=== PATIENT | male | born 1945 | race Caucasian/White ===

== ENCOUNTER 2020-10-28 21:01 | Inpatient (IN) ==
[2020-10-28 21:50] LABS: POC Blood Urea Nitrogen 33 mg/dL (6-20); POC CO2 26 mmol/L (22-30); POC Calcium, Ionized 1.25 mmEq/L (1.16-1.32); POC Chloride 95 mEq/L (96-108); POC Creatinine 6.4 mg/dL (0.6-1.2); POC Glucose, Random 104 mg/dL (70-105); POC Hematocrit 29 % (41-55); POC Potassium 5.4 mEql/L (3.3-5.1); POC Sodium 134 mEq/L (133-145)
[2020-10-28 22:13] LABS: Basophils # (Auto) 0.08 K/mcL (0.00-0.30); Basophils % (Auto) 0.6 % (0.0-2.0); Eosinophils # (Auto) 0.28 K/mcL (0.00-0.70); Eosinophils % (Auto) 2.1 % (0.0-7.0); Hematocrit 27.6 % (40.1-51.0); Lymphocytes % (Auto) 9.7 % (15.5-49.0); Mean Cell Volume 95.2 fL (80.0-100.0); Mean Corpuscular HGB Conc 32.6 g/dL (31.0-36.0); Mean Platelet Volume 10.5 fL (7.4-10.4); Monocytes % (Auto) 8.2 % (1.0-12.0); Neutrophils % (Auto) 79.4 % (38.0-78.0); Platelet Count 194 K/mcL (140-440); Red Cell Distribution Width 14.3 % (11.5-14.5); WBC 13.3 K/mcL (4.5-11.0)
--- NOTE | 2020-10-29 00:46 | Emergency Department Note ---
HPI General Chief complaint: Shortness of Breath/Dyspnea Stated complaint: SOB d/t needing dialysis Time Seen by Provider: 10/28/20 21:09 Source: patient Mode of arrival: EMS Limitations: no limitations History of Present Illness HPI Narrative: Narrative: Patient is a 75-year-old male with history of end-stage renal disease who presents with chief complaint of shortness of breath. Patient states that he had been doing well up until earlier this evening when he started to have worsening shortness of breath. He also has noted some extra fluid on him, which he states happens from time to time with his end-stage renal disease and dialysis. Occasionally he gets to fluid overloaded too quickly and needs to be admitted for dialysis. Patient thinks that is happening again, denies any other significant symptoms such as fever, headache, cough, chest pain, nausea, vomiting, diaphoresis, abdominal pain, changes in bowel movements or urinary symptoms. Patient states he does occasionally still make urine but not very much. He typically gets dialysis on Wednesday. He has not missed any recent appointments. Related Data Home Medications Medication Instructions Recorded Confirmed aspirin 81 mg tablet,delayed 81 mg PO QDAY 03/06/19 10/28/20 release nitroglycerin 1 tab SUBLINGUAL PRN 03/06/19 09/11/20 albuterol sulfate 90 mcg/actuation 2 puff INHALATION .Q4-6H PRN g 06/26/20 10/28/20 aerosol inhaler clopidogrel 75 mg tablet 75 mg PO QHS 06/26/20 10/28/20 ondansetron 4 mg disintegrating 4 mg PO ONCE PRN tab 06/26/20 10/28/20 tablet sennosides 8.6 mg-docusate sodium 2 tab-cap PO QDAY tab 06/26/20 10/28/20 50 mg tablet atorvastatin 40 mg tablet 40 mg PO QDAY 09/11/20 10/28/20 hydrocodone 5 mg-acetaminophen 325 1 tab PO BID PRN 09/11/20 10/28/20 mg tablet Previous Rx's Medication Instructions Recorded omeprazole 20 mg capsule,delayed 20 mg PO QDAY #90 cap 03/09/19 release calcium acetate(phosphat bind) 667 2,001 mg PO .tid cc #300 cap 01/10/20 mg capsule external catheter, male 31 mm to #30 ea 06/04/20 35 mm diclofenac sodium 1 % topical gel 2 g TOPICAL QID PRN #100 g 06/13/20 amitriptyline 10 mg tablet 10 mg PO QHS #30 tab 07/04/20 amlodipine 10 mg tablet 10 mg PO QAM #30 tab 07/04/20 losartan 100 mg tablet 100 mg PO QHS #30 tab 07/04/20 metoprolol succinate 100 mg 100 mg PO QAM #30 tab 07/04/20 tablet,extended release 24 hr tamsulosin 0.4 mg capsule 0.8 mg PO QHS #60 cap 07/04/20 polyethylene glycol 3350 17 17 g PO .COMPLEX #510 g 07/23/20 gram/dose oral powder Allergies Allergy/AdvReac Type Severity Reaction Status Date / Time Paroxetine [From Paxil] AdvReac Mild nausea Verified 09/11/20 14:23 Review of Systems ROS ROS Narrative: Narrative: All systems ED: reviewed and negative except as stated. PFSH Narrative Patient History Narrative: Narrative: Medical/Surgical/Family History All Active Problems (Updated 10/29/20 @ 00:55 by Dominick Lozano DO) Hypoxia (Acute) Volume overload (Acute) CKD (chronic kidney disease) requiring chronic dialysis (Acute) Bilateral hydronephrosis (Acute) Acute renal failure (Chronic) Hip fracture (Chronic) CKD (chronic kidney disease) (Chronic) Dependence on renal dialysis (Chronic ~08/2017) UTI (urinary tract infection) (Chronic) SOB (shortness of breath) (Chronic) Anemia due to chronic kidney disease (Chronic) Hyperkalemia (Chronic) Secondary hyperparathyroidism of renal origin (Chronic) Fall (Chronic ~07/2017) Femoral neck fracture (Chronic) Osteopenia (Chronic) Myocardial infarction acute (Chronic) Hypertension (Chronic) CVA (cerebral vascular accident) (Chronic) Tobacco use (Chronic) CAD (coronary artery disease) (Chronic) High cholesterol (Chronic) Abscess (Acute) Myositis (Acute) Abscess of skin or subcutaneous tissue (Acute) ESRD on hemodialysis (Acute) Situational depression (Chronic) History of total hip replacement (Acute) Chronic blood loss anemia (Acute) Orthopnea (Acute) Hypotension of hemodialysis (Acute) Arthropathies (Acute) Incontinence (Acute) Nausea (Chronic) Dyspnea (Chronic) Right knee pain (Chronic) Unsteadiness on feet (Chronic) Other fdc (current) drug therapy (Chronic) Other constipation (Chronic) Mixed hyperlipidemia (Chronic) Volume overload (Acute) Acute hyperkalemia (Acute) Chronic systolic CHF (congestive heart failure), NYHA class 2 (Chronic) Urinary retention (Acute) Constipation (Acute) Medical History Acute renal failure Anemia due to chronic kidney disease As needed BERNABE with HD CAD (coronary artery disease) CKD (chronic kidney disease) CVA (cerebral vascular accident) Dependence on renal dialysis (~08/2017) Dyspnea Fall (~07/2017) Femoral neck fracture High cholesterol Hip fracture Hyperkalemia Hypertension Amlodipine 10 mg per day Metoprolol Succinate 100 mg a day Losartan 100 mg qHS Mixed hyperlipidemia Myocardial infarction acute Nausea Osteopenia Other constipation Other fdc (current) drug therapy Right knee pain Secondary hyperparathyroidism of renal origin Ca Acetate SOB (shortness of breath) Tobacco use Unsteadiness on feet UTI (urinary tract infection) Surgical History H/O heart artery stent 01/20/16 History of hip surgery due to hip fracture History of surgery Left tunneled central line Family History Mother Stroke Heart disease Hypertension Lung cancer Father Lung cancer Other Cancer Heart attack Social History Smoking Status: Current every day smoker Alcohol Intake Frequency: former alcohol drinker Substance Use: does not use Exam Narrative Narrative: Narrative: Patient is a 75-year-old male sitting up in bed, acting normally and appropriately. He does not appear to be in acute discomfort or distress. He does not have any significant conversational dyspnea. General Limitations: no limitations Head Head: Present atraumatic and normocephalic Eye Eye: Present normal appearance, PERRL and EOMI; Absent scleral icterus and conjunctival injection ENT ENT: Present normal oropharynx and mucous membranes moist Neck Neck: Present full ROM and trachea midline; Absent tenderness and lymphadenopathy Chest Chest: Present symmetric chest wall rise Respiratory Respiratory: Present normal lung sounds bilaterally, respiratory distress (Mild increased work of breathing/tachypnea.) and rales/crackles; Absent wheezes, stridor and accessory muscle use Cardiovascular Cardiovascular: Present regular rate and normal rhythm; Absent systolic murmur and diastolic murmur Adbominal Abdominal: Present soft; Absent tenderness, guarding, rebound, rigidity and mass Extremities Extremities: Present pedal edema; Absent pretibial edema and calf tenderness Back Back: Absent CVA tenderness (R), CVA tenderness (L) and spinous process tenderness Neurological Neurological: Present alert and oriented X3 Psychiatric Psychiatric: Present normal affect and normal mood Skin Skin: Present warm (WNL) and dry Course Vital Signs Vital signs: Vital Signs Temperature 98.2 F 10/28/20 21:02 Pulse Rate 96 H 10/28/20 21:02 Respiratory Rate 28 H 10/28/20 21:02 Blood Pressure 165/80 10/28/20 21:02 Pulse Oximetry (%) 87 L 10/28/20 21:02 Temperature 98.2 F 10/28/20 21: Pulse Rate 90 10/29/20 00:31 Respiratory Rate 28 H 10/28/20 21:02 Blood Pressure 144/86 10/29/20 00:31 Pulse Oximetry (%) 89 L 10/29/20 00:31 [facility] MDM Narrative Medical decision making narrative: Narrative: Patient is a 75-year-old male who presented with chief complaint of shortness of breath. At this time patient does have a history and physical exam consistent with likely fluid overload secondary to his end-stage renal disease. His blood work here shows a consistent elevated leukocytosis from previous episodes, chest x-ray shows some mild pulmonary edema versus vascular congestion, and BNP is elevated as well consistent with his current fluid overload status. He has no chest pain, my suspicion for ACS is low. EKG showed no significant acute changes. Patient is requiring increased oxygen supplementation to keep his oxygenation in the low 90s as well as improve his symptoms of shortness of breath. He typically is not on oxygen at home, and we did try multiple times to wean him off the oxygen here in an effort to be able to discharge him home, however we are unable to accomplish this. He actually has had some increased oxygen requirements throughout his 4 hours here thus far, initially starting off at 2 L nasal cannula, now requiring 4 L nasal cannula. Because of this I did feel that he would benefit from a more urgent dialysis, and I discussed the case with Dr. García, who stated he would order dialysis for the patient. I discussed case the hospitalist, who agrees with the plan of admission at this time. Patient is agreeable to the plan at this time is no further concerns or questions Lab Data Result diagrams: 10/28/20 21:31 Labs: Lab Results 10/28/20 10/28/20 Range/Units 21:31 21:31 WBC 13.3 H (4.5-11.0) K/mcL RBC 2.90 L (4.63-6.08) M/mcL Hgb 9.0 L (13.7-17.5) g/dL Hct 27.6 L (40.1-51.0) % POC Hct 29 L (41-55) % MCV 95.2 (80.0-100.0) fL MCH 31.0 (26.0-34.0) pg MCHC 32.6 (31.0-36.0) g/dL RDW 14.3 (11.5-14.5) % Plt Count 194 (140-440) K/mcL MPV 10.5 H (7.4-10.4) fL Neut % (Auto) 79.4 H (38.0-78.0) % Lymph % (Auto) 9.7 L (15.5-49.0) % [place] % (Auto) 8.2 (1.0-12.0) % Eos % (Auto) 2.1 (0.0-7.0) % Baso % (Auto) 0.6 (0.0-2.0) % Lymph # (Auto) 1.30 L (1.50-4.80) K/mcL [place] # (Auto) 1.10 H (0.10-0.90) K/mcL Eos # (Auto) 0.28 (0.00-0.70) K/mcL Baso # (Auto) 0.08 (0.00-0.30) K/mcL Absolute Neutrophils 10.58 H (1.80-8.00) K/mcL POC Sodium 134 (133-145) mEq/L POC Potassium 5.4 H (3.3-5.1) mEql/L POC Chloride 95 L (96-108) mEq/L POC Total CO2 26 (22-30) mmol/L POC BUN 33 H (6-20) mg/dL POC Creatinine 6.4 H* (0.6-1.2) mg/dL POC Glucose 104 (70-105) mg/dL POC WB Ioniz Calcium 1.25 (1.16-1.32) mmEq/L NT-Pro-B Natriuret Pep 24005.0 H (<125.0) pg/mL ED POC Tests ED POC Tests: [facility] - SARS Antigen Negative Procedures Other Procedure: EKG shows normal sinus rhythm with rate of approximately 85. No ST elevation or depression concerning for ischemia. Flipped T waves in lead V5 and V6 appears to be similar to previous EKGs. No other significant arrhythmia noted. Left bundle branch block noted. CC TIME Critical Care Time Critical Care Time: Yes Total Critical Care Time: 40 Discharge Plan Patient/Caregiver Discharge Instructions Pt seen by LABORATORY MANAGER/PA only: No Clinical Impression: Hypoxia, Volume overload, CKD (chronic kidney disease) requiring chronic dialysis Patient Disposition: Xfer As Inpt ([facility]) Follow up with: Obdulia Rees ARNP [Primary Care Provider] - Prescriptions: No Action omeprazole 20 mg capsule,delayed release(DR/EC) 20 mg PO QDAY Qty: 90 RF: 3 calcium acetate(phosphat bind) 667 mg capsule 2,001 mg PO .tid cc Qty: 300 RF: 11 (DME) external catheter, male 31 mm to 35 mm misc See Rx Instructions .ROUTE .MEDSUPPLY Qty: 30 RF: 11 diclofenac sodium 1 % gel 2 g topical QID PRN (Reason: Right hip OA) Qty: 100 RF: 3 amitriptyline 10 mg tablet 10 mg PO QHS Qty: 30 RF: 11 amlodipine 10 mg tablet 10 mg PO QAM Qty: 30 RF: 11 metoprolol succinate 100 mg tablet extended release 24 hr 100 mg PO QAM Qty: 30 RF: 11 tamsulosin [Flomax] 0.4 mg capsule 0.8 mg PO QHS Qty: 60 RF: 11 losartan 100 mg tablet 100 mg PO QHS Qty: 30 RF: 11 polyethylene glycol 3350 [Miralax] 17 gram/dose powder 17 g PO .COMPLEX Qty: 510 RF: 11 albuterol sulfate 90 mcg/actuation HFA aerosol inhaler 2 puff inhalation .Q4-6H PRN (Reason: Chest Pain) RF: 0 ondansetron 4 mg tablet,disintegrating 4 mg PO ONCE PRN (Reason: Nausea) RF: 0 sennosides-docusate sodium [Senna Plus] 8.6-50 mg tablet 2 tab-cap PO QDAY RF: 0 clopidogrel 75 mg tablet 75 mg PO QHS RF: 0 aspirin [Adult Low Dose Aspirin] 81 mg tablet,delayed release (DR/EC) 81 mg PO QDAY RF: 0 nitroglycerin 1 tab SUBLINGUAL PRN (Reason: Chest Pain) RF: 0 atorvastatin 40 mg tablet 40 mg PO QDAY RF: 0 hydrocodone-acetaminophen 5-325 mg tablet 1 tab PO BID PRN (Reason: Pain) RF: 0
[2020-10-29] MEDS ORDERED: ONDANSETRON 4 MG/2 ML VIAL IV PRN ×2 (00:48→08:35)
--- NOTE | 2020-10-29 01:04 | Nephrology Consult Note ---
HPI Data of Consult Patient: known to practice within the last 3 years Consult date: 10/29/20 Requesting physician: Dominick Lozano Primary Care Provider: Obdulia Rees Consult Narrative Patient Information: Note initiated : 10/29/20 at 12:58 am Patient: Antoine Haney 75 y/o M admitted on for SOB d/t needing dialysis. Antoine Haney is a 75-year-old male with end stage renal disease on hemodialysis presented to [facility] ED for shortness of breath. He is due for hemodialysis later this morning. In ED, work up was significant for pulmonary e olga. Patient is being admitted. Nephrology consultation was requested for end stage renal disease. Chief complaint: Shortness of breath Reason for consult: Pulmonary edema cc:: CC: Constitutional Constitutional: Present weakness; Absent fever(s) EENT Nose, mouth and throat: Absent nasal congestion and sore throat Cardiovascular Cardiovascular: Absent chest pain and palpatations Respiratory Respiratory: Present cough and dyspnea Gastrointestinal Gastrointestinal: Absent nausea and vomiting Integumentary Integumentary: Absent rash and wounds Neurological Neurological: Absent confusion and syncope Psychiatric Psychiatric: Absent anxiety and panic attacks Hematologic/Lymphatic Hematologic/Lymphatic: Absent easy bleeding and easy bruising Allergic/Immunologic Allergic/Immunologic: Absent tongue swelling and uticaria PFSH PFSH All Active Problems (Updated 10/29/20 @ 06:45 by Laney García MD) Acute on chronic systolic (congestive) heart failure (Acute) Pulmonary edema (Acute) Hypoxia (Acute) Volume overload (Acute) CKD (chronic kidney disease) requiring chronic dialysis (Acute) Bilateral hydronephrosis (Acute) Acute renal failure (Chronic) Hip fracture (Chronic) CKD (chronic kidney disease) (Chronic) Dependence on renal dialysis (Chronic ~08/2017) UTI (urinary tract infection) (Chronic) SOB (shortness of breath) (Chronic) Anemia due to chronic kidney disease (Chronic) Hyperkalemia (Acute) Secondary hyperparathyroidism of renal origin (Chronic) Fall (Chronic ~07/2017) Femoral neck fracture (Chronic) Osteopenia (Chronic) Myocardial infarction acute (Chronic) Hypertension (Chronic) CVA (cerebral vascular accident) (Chronic) Tobacco use (Chronic) CAD (coronary artery disease) (Chronic) High cholesterol (Chronic) Abscess (Acute) Myositis (Acute) Abscess of skin or subcutaneous tissue (Acute) 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) Situational depression (Chronic) History of total hip replacement (Acute) Chronic blood loss anemia (Acute) Orthopnea (Acute) Hypotension of hemodialysis (Acute) Arthropathies (Acute) Incontinence (Acute) Nausea (Chronic) Dyspnea (Chronic) Right knee pain (Chronic) Unsteadiness on feet (Chronic) Other sweatband shaper (current) drug therapy (Chronic) Other constipation (Chronic) Mixed hyperlipidemia (Chronic) Volume overload (Acute) Acute hyperkalemia (Acute) Chronic systolic CHF (congestive heart failure), NYHA class 2 (Chronic) Urinary retention (Acute) Constipation (Acute) Medical History Acute renal failure Anemia due to chronic kidney disease As needed BERNABE with HD CAD (coronary artery disease) CKD (chronic kidney disease) CVA (cerebral vascular accident) Dependence on renal dialysis (~08/2017) Dyspnea Fall (~07/2017) Femoral neck fracture High cholesterol Hip fracture Hyperkalemia Hypertension Amlodipine 10 mg per day Metoprolol Succinate 100 mg a day Losartan 100 mg qHS Mixed hyperlipidemia Myocardial infarction acute Nausea Osteopenia Other constipation Other chcf (current) drug therapy Right knee pain Secondary hyperparathyroidism of renal origin Ca Acetate SOB (shortness of breath) Tobacco use Unsteadiness on feet UTI (urinary tract infection) Surgical History H/O heart artery stent 01/20/16 History of hip surgery due to hip fracture History of surgery Left tunneled central line Family History Mother Stroke Heart disease Hypertension Lung cancer Father Lung cancer Other Cancer Heart attack Social History marital status: occupational status: retired smoking status: Current every day smoker tobacco type: cigarettes per day: 4 pack-years: 50 alcohol intake frequency: former alcohol drinker substance use type: does not use MEDS/ALLERGIES Home Medications and Allergies Home Medications Medication Instructions Recorded Confirmed Type aspirin 81 mg tablet,delayed 81 mg PO QDAY 03/06/19 10/29/20 History release nitroglycerin 1 tab SUBLINGUAL PRN PRN 03/06/19 10/29/20 History omeprazole 20 mg capsule,delayed 20 mg PO QDAY #90 cap 03/09/19 10/29/20 Rx release calcium acetate(phosphat bind) 667 2,001 mg PO .tid cc #300 cap 01/10/20 10/29/20 Rx mg capsule external catheter, male 31 mm to #30 ea 06/04/20 09/11/20 Rx 35 mm diclofenac sodium 1 % topical gel 2 g TOPICAL QID PRN #100 g 06/13/20 10/29/20 Rx albuterol sulfate 90 mcg/actuation 2 puff INHALATION .Q4-6H PRN g 06/26/20 10/29/20 History aerosol inhaler clopidogrel 75 mg tablet 75 mg PO QHS 06/26/20 10/29/20 History ondansetron 4 mg disintegrating 4 mg PO ONCE PRN tab 06/26/20 10/29/20 History tablet sennosides 8.6 mg-docusate sodium 2 tab-cap PO QDAY tab 06/26/20 10/28/20 History 50 mg tablet amitriptyline 10 mg tablet 10 mg PO QHS #30 tab 07/04/20 10/29/20 Rx amlodipine 10 mg tablet 10 mg PO QAM #30 tab 07/04/20 10/29/20 Rx losartan 100 mg tablet 100 mg PO QHS #30 tab 07/04/20 10/29/20 Rx metoprolol succinate 100 mg 100 mg PO QAM #30 tab 07/04/20 10/29/20 Rx tablet,extended release 24 hr tamsulosin 0.4 mg capsule 0.8 mg PO QHS #60 cap 07/04/20 10/28/20 Rx polyethylene glycol 3350 17 17 g PO .COMPLEX #510 g 07/23/20 10/28/20 Rx gram/dose oral powder atorvastatin 40 mg tablet 40 mg PO QDAY 09/11/20 10/29/20 History hydrocodone 5 mg-acetaminophen 325 1 tab PO TID PRN 09/11/20 10/29/20 History mg tablet Allergies Allergy/AdvReac Type Severity Reaction Status Date / Time No Known Allergies Allergy Verified 10/29/20 02:41 Physical Examination Vital Signs Vital signs: Temp Pulse Resp BP Pulse Ox 98.2 F 90 28 H 144/86 95 10/28/20 21:02 10/29/20 00:31 10/28/20 21:02 10/29/20 00:31 10/29/20 00:56 General Appearance General appearance: chronically ill and fatigue EENT EENT: mucous membranes moist Neck Neck: JVD Respiratory Respiratory: rales Cardiovascular Cardiology: edema Gastrointestinal Gastrointestinal: no tenderness Integumentary Integumentary: no rash and warm and dry Neurologic Neurologic: no focal deficit Psychiatric Psychiatric: mood/affect appropriate and cooperative Results Lab Results Result Diagrams: 10/28/20 21:31 A/P Assessment and plan (1) Acute on chronic systolic (congestive) heart failure: Status: Acute (2) Pulmonary edema: Status: Acute Qualifiers: Chronicity: acute Qualified Code(s): J81.0 - Acute pulmonary edema (3) ESRD on hemodialysis: Assessment and plan: Antoine Haney is a 75-year-old male with end stage renal disease on hemodialysis, chronic systolic heart failure (Echo on 07/10/20: LVEF 25-30%) presented to [facility] ED for shortness of breath. In ED, work up was significant for pulmonary edema. The patient is admitted. Nephrology consultation was requested for end stage renal disease. End stage renal disease on hemodialysis. Wednesday, and Wednesday at [facility]. Chronic anemia due to ESRD. Acute on chronic systolic heart failure (Echo on 07/10/20: LVEF 25-30%) with fluid overload and suspected pulmonary edema. He is 3 kg above EDW based on admission weight. His examination is consistent with this. He has thin body and mild lower extremity edema. Hyperkalemia, mild. Progress: The patient seen and evaluated during hemodialysis at 6:20. His BP is low limiting UF. Midodrine 10 mg PO x 1 ordered. Recommendations/Plan: Hemodialysis today for fluid overload, then evaluate daily. He may benefit from a cardiology evaluation and cardiac cath. Status: Chronic (4) Hyperkalemia: Status: Acute Time Spent With Patient Time: Total time spent is greater than 50% in coordination of care (as documented) at patient's floor/unit and/or counseling patient:
[2020-10-29] MEDS: ACETAMINOPHEN 325 MG TABLET PO PRN ×2 (03:21→17:12)
[2020-10-29] MEDS: 0.9 % SODIUM CHLORIDE 10 ML SYRINGE IV SCH ×5 (06:18→20:21)
[2020-10-29] MEDS ORDERED: MIDODRINE 5 MG TABLET PO ONE (06:25)
--- NOTE | 2020-10-29 07:39 | XRay Report ---
CLINICAL INFORMATION: dyspnea COMPARISON: 07/01/2020 FINDINGS: The heart is moderately enlarged, but unchanged. Mediastinum is normal. Pulmonary vessels are mildly distended. There is moderate residual edema predominantly within the mid and lower lungs. No effusion IMPRESSION: Moderate CHF or volume overload Interpreted and Authenticated by: Cecilio Franco 10/29/20
--- NOTE | 2020-10-29 07:59 | Internal Med History&Physical ---
HPI History of Present Illness Patient information: Note initiated : 10/29/20 at 7:52 am Service Date, if different from initiated Date: [] Patient: Antoine Haney a 75 y/o M admitted on 10/29/20 for SOB d/t needing dialysis. Chief Complaint: [] History of present illness: Mr. Haney is a 75 year old M Presented to the ED with shortness of breath stating he needed dialysis. He was 87% by EMS. Patient states he started to get short of breath on Wednesday. He says this happens occasionally and then he will come in for dialysis. In the ED he had a chest x-ray which showed pulmonary edema. His sats were in the mid 80s. Laboratory is baseline for him. Dr. rincon contacted for dialysis. Patient just finished dialysis states he does feel a lot better. Review of Systems: Pertinent positives as above. Denies headache/fever/chills/nausea/vomiti ng/chest or abdominal pain/cough/diarrhea. Remaining 10 point review of system reviewed negative PFSH PFSH All Active Problems (Updated 10/29/20 @ 06:45 by Laney Rincon MD) Acute on chronic systolic (congestive) heart failure (Acute) Pulmonary edema (Acute) Hypoxia (Acute) Volume overload (Acute) CKD (chronic kidney disease) requiring chronic dialysis (Acute) Bilateral hydronephrosis (Acute) Acute renal failure (Chronic) Hip fracture (Chronic) CKD (chronic kidney disease) (Chronic) Dependence on renal dialysis (Chronic ~08/2017) UTI (urinary tract infection) (Chronic) SOB (shortness of breath) (Chronic) Anemia due to chronic kidney disease (Chronic) Hyperkalemia (Acute) Secondary hyperparathyroidism of renal origin (Chronic) Fall (Chronic ~07/2017) Femoral neck fracture (Chronic) Osteopenia (Chronic) Myocardial infarction acute (Chronic) Hypertension (Chronic) CVA (cerebral vascular accident) (Chronic) Tobacco use (Chronic) CAD (coronary artery disease) (Chronic) High cholesterol (Chronic) Abscess (Acute) Myositis (Acute) Abscess of skin or subcutaneous tissue (Acute) 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) Situational depression (Chronic) History of total hip replacement (Acute) Chronic blood loss anemia (Acute) Orthopnea (Acute) Hypotension of hemodialysis (Acute) Arthropathies (Acute) Incontinence (Acute) Nausea (Chronic) Dyspnea (Chronic) Right knee pain (Chronic) Unsteadiness on feet (Chronic) Other correction (current) drug therapy (Chronic) Other constipation (Chronic) Mixed hyperlipidemia (Chronic) Volume overload (Acute) Acute hyperkalemia (Acute) Chronic systolic CHF (congestive heart failure), NYHA class 2 (Chronic) Urinary retention (Acute) Constipation (Acute) Medical History Acute renal failure Anemia due to chronic kidney disease As needed 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 with HD CAD (coronary artery disease) CKD (chronic kidney disease) CVA (cerebral vascular accident) Dependence on renal dialysis (~08/2017) Dyspnea Fall (~07/2017) Femoral neck fracture High cholesterol Hip fracture Hyperkalemia Hypertension Amlodipine 10 mg per day Metoprolol Succinate 100 mg a day Losartan 100 mg qHS Mixed hyperlipidemia Myocardial infarction acute Nausea Osteopenia Other constipation 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 Right knee pain Secondary hyperparathyroidism of renal origin Ca Acetate SOB (shortness of breath) Tobacco use Unsteadiness on feet UTI (urinary tract infection) Surgical History H/O heart artery stent 01/20/16 History of hip surgery due to hip fracture History of surgery Left tunneled central line Family History Mother Stroke Heart disease Hypertension Lung cancer Father Lung cancer Other Cancer Heart attack Social History marital status: occupational status: retired smoking status: Current every day smoker tobacco type: cigarettes per day: 4 pack-years: 50 alcohol intake frequency: former alcohol drinker substance use type: does not use MEDS/ALLERGIES Home Medications and Allergies Home Medications Medication Instructions Recorded Confirmed Type aspirin 81 mg tablet,delayed 81 mg PO QDAY 03/06/19 10/29/20 History release nitroglycerin 1 tab SUBLINGUAL PRN PRN 03/06/19 10/29/20 History omeprazole 20 mg capsule,delayed 20 mg PO QDAY #90 cap 03/09/19 10/29/20 Rx release calcium acetate(phosphat bind) 667 2,001 mg PO .tid cc #300 cap 01/10/20 10/29/20 Rx mg capsule external catheter, male 31 mm to #30 ea 06/04/20 09/11/20 Rx 35 mm diclofenac sodium 1 % topical gel 2 g TOPICAL QID PRN #100 g 06/13/20 10/29/20 Rx albuterol sulfate 90 mcg/actuation 2 puff INHALATION .Q4-6H PRN g 06/26/20 10/29/20 History aerosol inhaler clopidogrel 75 mg tablet 75 mg PO QHS 06/26/20 10/29/20 History ondansetron 4 mg disintegrating 4 mg PO ONCE PRN tab 06/26/20 10/29/20 History tablet sennosides 8.6 mg-docusate sodium 2 tab-cap PO QDAY tab 06/26/20 10/28/20 History 50 mg tablet amitriptyline 10 mg tablet 10 mg PO QHS #30 tab 07/04/20 10/29/20 Rx amlodipine 10 mg tablet 10 mg PO QAM #30 tab 07/04/20 10/29/20 Rx losartan 100 mg tablet 100 mg PO QHS #30 tab 07/04/20 10/29/20 Rx metoprolol succinate 100 mg 100 mg PO QAM #30 tab 07/04/20 10/29/20 Rx tablet,extended release 24 hr tamsulosin 0.4 mg capsule 0.8 mg PO QHS #60 cap 07/04/20 10/28/20 Rx polyethylene glycol 3350 17 17 g PO .COMPLEX #510 g 07/23/20 10/28/20 Rx gram/dose oral powder atorvastatin 40 mg tablet 40 mg PO QDAY 09/11/20 10/29/20 History hydrocodone 5 mg-acetaminophen 325 1 tab PO TID PRN 09/11/20 10/29/20 History mg tablet Allergies Allergy/AdvReac Type Severity Reaction Status Date / Time No Known Allergies Allergy Verified 10/29/20 02:41 EXAM Constitutional Vitals: Temp Pulse Resp BP Pulse Ox 97.5 F 92 H 25 H 90/63 95 10/29/20 04:50 10/29/20 07:45 10/29/20 05:28 10/29/20 07:45 10/29/20 06:00 Exam: General: Alert, Awake, No acute Distress Eyes/N/T: EOMI, PERRL, Head/Neck: neck supple, normocephalic atraumatic CV: RRR, No murmurs, normal s1/s2 Pulm: diminished b/l, no wheezing Abd: soft, nontender, +BS x4 Ext: no clubbing/cyanosis, mild b/l LE edema Neuro: Alert, no focal deficits, moves all extremities, CN 2-12 grossly intact, symmetrical strength b/l upper/lower, sensations intact b/l upper/lower Skin: warm/dry DATA Data Completed and Pending Labs: Labs from last 24 hours 10/28/20 10/28/20 21:31 21:31 WBC 13.3 H RBC 2.90 L Hgb 9.0 L Hct 27.6 L POC Hct 29 L MCV 95.2 MCH 31.0 MCHC 32.6 RDW 14.3 Plt Count 194 MPV 10.5 H Neut % (Auto) 79.4 H Lymph % (Auto) 9.7 L [place] % (Auto) 8.2 Eos % (Auto) 2.1 Baso % (Auto) 0.6 Lymph # (Auto) 1.30 L [place] # (Auto) 1.10 H Eos # (Auto) 0.28 Baso # (Auto) 0.08 Absolute Neutrophils 10.58 H POC Sodium 134 POC Potassium 5.4 H POC Chloride 95 L POC Total CO2 26 POC BUN 33 H POC Creatinine 6.4 H* POC Glucose 104 POC WB Ioniz Calcium 1.25 NT-Pro-B Natriuret Pep 33582.0 H A/P Narrative A/P Narrative: A: *Volume overload with acute on chronic systolic (25-30%)/diastolic(II) CHF w/pulmonary edema: *ESRD: Follows with Dr. Villalpando *Acute hypoxic respiratory failure: 2/2 above *Hyperkalemia: *Hyponatremia: *Chronic jones use: follows with [place] *CAD w/stent: *h/o CVA: *HTN/HLD: *Anemia, chronic: *GERD: *Tobacco abuse: P: -Nephrology for dialysis and electrolyte abnormalities -midodrine during HD per Nephro -cont home ASA/Plavix/Statin -cont home BB, hold ARB/norvasc given low bp while HD this morning -pt/ot -Smoking cessation counseling -f/u cardiology and nephrology -ppx: heparin / home ppi full code Time Spent With Patient Time: Total time spent is greater than 50% in coordination of care (as documented) at patient's floor/unit and/or counseling patient: QUALITY VTE Deep Vein Thrombosis/Pulmonary Embolism Present on Admission: No
[2020-10-29] MEDS ORDERED: ALBUTEROL SULFATE 200 PUFF INHALER INH PRN (08:33)
[2020-10-29] MEDS ORDERED: POTASSIUM CHLORIDE 40 MEQ in DEXTROSE 5% IN WATER 500 ML IV PRN (08:35)
[2020-10-29] MEDS ORDERED: MAGNESIUM SULFATE 2 GM/50 ML BAG IV PRN (08:35)
[2020-10-29] MEDS ORDERED: IPRATROPIUM/ALBUTEROL 3 ML AMPUL.NEB NEB PRN (08:35)
[2020-10-29] MEDS ORDERED: ACETAMINOPHEN 325 MG TABLET PO PRN (08:35)
[2020-10-29] MEDS ORDERED: POTASSIUM CHLORIDE 20 MEQ TABLET PO PRN ×2 (08:35)
[2020-10-29] MEDS ORDERED: hydrALAZINE 20 MG/ML VIAL IV PRN (08:35)
[2020-10-29] MEDS ORDERED: SENNOSIDES 1 TABLET PO PRN (08:35)
[2020-10-29] MEDS ORDERED: Diclofenac Sodium 1 % gel TOPICAL PRN (08:39)
[2020-10-29] MEDS ORDERED: NITROGLYCERIN 0.4 MG TAB.SUBL SL PRN (08:40)
[2020-10-29] MEDS: HYDROcodone/APAP 5/325MG TABLET PO PRN ×3 (08:54→20:09)
[2020-10-29] MEDS: SENNOSIDES/DOCUSATE SODIUM 1 TAB TABLET PO SCH (10:56)
[2020-10-29] MEDS: ASPIRIN 81 MG TAB.CHEW PO SCH (10:56)
[2020-10-29] MEDS: ATORVASTATIN 40 MG TABLET PO SCH (10:56)
[2020-10-29] MEDS: METOPROLOL SUCCINATE 50 MG TAB.XL.24H PO SCH (10:56)
[2020-10-29] MEDS: HEPARIN 5,000 UNIT/ML VIAL SQ SCH ×2 (10:56→20:10)
[2020-10-29] MEDS: OMEPRAZOLE 20 MG CAPSULE PO SCH (10:56)
[2020-10-29] MEDS: DOCUSATE SODIUM 100 MG CAPSULE PO SCH ×2 (10:56→20:10)
[2020-10-29] MEDS: CALCIUM ACETATE 667 MG CAPSULE PO SCH ×3 (10:56→17:31)
--- NOTE | 2020-10-29 12:09 | EKG ---
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
[2020-10-29] MEDS ORDERED: AMITRIPTYLINE 10 MG TABLET PO SCH (21:00)
[2020-10-29] MEDS ORDERED: TAMSULOSIN 0.4 MG CAPSULE PO SCH (21:00)
[2020-10-29] MEDS ORDERED: CLOPIDOGREL 75 MG TABLET PO SCH (21:00)
[2020-10-29] MEDS ORDERED: POLYETHYLENE GLYCOL 3350 17 GM PACKET PO SCH (21:00)
[2020-10-29] MEDS ORDERED: LOSARTAN 50 MG TABLET PO SCH (21:00)
[2020-10-30] MEDS: HYDROcodone/APAP 5/325MG TABLET PO PRN (03:21)
[2020-10-30] MEDS: 0.9 % SODIUM CHLORIDE 10 ML SYRINGE IV SCH ×2 (05:51)
[2020-10-30 07:28] LABS: ALT/SGPT < 5 U/L (<40); AST/SGOT 11 U/L (<40); Albumin 3.7 gm/dL (3.2-5.2); Alkaline Phosphatase 61 U/L (39-117); Bilirubin,Direct < 0.2 mg/dL (0-0.3); Bilirubin,Total 0.6 mg/dL (0.1-1.0); Blood Urea Nitrogen 24 mg/dL (8-23); Calcium 9.6 mg/dL (8.6-10.4); Carbon Dioxide 24 mmol/L (22-30); Chloride 89 mmol/L (96-108); Globulin 3.7 gm/dL (2.2-3.7); Glomerular Filtration Rate 12; Glucose 61 mg/dL (70-105); Lactate Dehydrogenase 194 U/L (135-225); Phosphorous 2.2 mg/dL (2.5-4.5); Triglycerides 107 mg/dL (<150); Uric Acid 2.8 mg/dL (2.5-8.0)
--- NOTE | 2020-10-30 07:36 | Internal Med Progress Note ---
SUBJECTIVE Subjective Patient information: Note initiated : 10/30/20 at 7:33 am Service Date, if different from initiated Date: [] Patient: Antoine Haney 75 y/o M admitted on 10/29/20 for SOB d/t needing dialysis. Chief Complaint: [] Interval history: History of present illness: Mr. Haney is a 75 year old M Presented to the ED with shortness of breath stating he needed dialysis. He was 87% by EMS. Patient states he started to get short of breath on Wednesday. He says this happens occasionally and then he will come in for dialysis. In the ED he had a chest x-ray which showed pulmonary edema. His sats were in the mid 80s. Laboratory is baseline for him. Dr. rincon contacted for dialysis. Patient just finished dialysis states he does feel a lot better. 10/30 Constitutional Vitals: Vital Signs Temp Pulse Resp BP Pulse Ox 98.5 F 89 19 138/67 95 10/30/20 04:02 10/30/20 06:01 10/30/20 06:01 10/30/20 06:01 10/30/20 06:01 Period Temp Pulse Resp BP Sys/Millan Pulse Ox Last 24 Hr 98 F-99.0 F 79-96 12-27 79-158/60-111 82-100 Intake and Output 10/29/20 10/30/20 10/30/20 21:59 05:59 13:59 Intake Total 720 360 Output Total 350 Balance 370 360 Weight 78.653 kg Intake & Output: Intake & Output 10/29/20 10/30/20 10/30/20 21:59 05:59 13:59 Intake Total 720 360 Output Total 350 Balance 370 360 Weight 78.653 kg Intake: Oral 720 360 Output: Urine Catheter Amount 350 Other: Meal Dinner Percent of Meal Consumed Refused Urine Appearance Cloudy Urine Color Bright Yellow Urine Odor Foul Exam: General: Alert, Awake, No acute Distress Eyes/N/T: EOMI,, Head/Neck: neck supple, CV: RRR, No murmurs, Pulm: diminished b/l, no wheezing Abd: soft, nontender, +BS x4 Ext: no clubbing/cyanosis, mild b/l LE edema Neuro: Alert, no focal deficits, moves all extremities, Skin: warm/dry OBJ DATA Labs CBC & Chem 7: 10/28/20 21:31 10/30/20 05:37 Labs: Abnormal Lab Results 10/30/20 10/28/20 10/28/20 05:37 21:31 21:31 WBC 13.3 H RBC 2.90 L Hgb 9.0 L Hct 27.6 L POC Hct 29 L MPV 10.5 H Neut % (Auto) 79.4 H Lymph % (Auto) 9.7 L Lymph # (Auto) 1.30 L [place] # (Auto) 1.10 H Absolute Neutrophils 10.58 H Sodium 129 L POC Potassium 5.4 H POC Chloride 95 L Chloride 89 L POC BUN 33 H BUN 24 H Creatinine 4.6 H POC Creatinine 6.4 H* Glucose 61 L Phosphorus 2.2 L NT-Pro-B Natriuret Pep 60874.0 H Meds: Medications Acetaminophen (Acetaminophen 325 Mg Tablet) 650 mg PO Q6HP PRN; Protocol PRN Reason: Per Pain Protocol/Fever > 101 Last Admin: 10/29/20 17:12 Dose: 650 mg Documented by: Acetaminophen (Acetaminophen 325 Mg Tablet) 650 mg PO Q6HP PRN PRN Reason: PAIN/FEVER > 101 Hydrocodone Bitart/Acetaminophen (Hydrocodone/Apap 5/325mg Tablet) 1 tab PO TIDP PRN PRN Reason: Pain Last Admin: 10/30/20 03:21 Dose: 1 tab Documented by: Albuterol Sulfate (Albuterol Sulfate 200 Puff Inhaler) 2 puff INH Q4-6HP PRN PRN Reason: Chest Pain Albuterol/Ipratropium (Ipratropium/Albuterol 3 Ml Ampul.Neb) 3 ml NEB Q4HP PRN PRN Reason: Shortness Of Breath Amitriptyline HCl (Amitriptyline 10 Mg Tablet) 10 mg PO QHS [facility] Last Admin: 10/29/20 20:09 Dose: 10 mg Documented by: Aspirin (Aspirin 81 Mg Tab.Chew) 81 mg PO DAILY [facility] Last Admin: 10/29/20 10:56 Dose: 81 mg Documented by: Atorvastatin Calcium (Atorvastatin 40 Mg Tablet) 40 mg PO QDAY [facility] Last Admin: 10/29/20 10:56 Dose: 40 mg Documented by: Calcium Acetate (Calcium Acetate 667 Mg Capsule) 2,001 mg PO TIDCC [facility] Last Admin: 10/29/20 17:31 Dose: 2,001 mg Documented by: Clopidogrel Bisulfate (Clopidogrel 75 Mg Tablet) 75 mg PO QHS [facility] Last Admin: 10/29/20 20:09 Dose: 75 mg Documented by: Docusate Sodium (Docusate Sodium 100 Mg Capsule) 100 mg PO BID [facility] Last Admin: 10/29/20 20:10 Dose: Not Given Documented by: Heparin Sodium (Porcine) (Heparin 5,000 Unit/Ml Vial) 5,000 unit SQ Q12 [facility] Last Admin: 10/29/20 20:10 Dose: 5,000 unit Documented by: Hydralazine HCl (Hydralazine 20 Mg/Ml Vial) 0 mg IV Q2HP PRN PRN Reason: Hypertension Magnesium Sulfate (Magnesium Sulfate) 2 gm in 50 mls @ 50 mls/hr IV UD PRN PRN Reason: Magnesium </= 1.6 Potassium Chloride 40 meq/ (Dextrose) 520 mls @ 130 mls/hr IV UD PRN PRN Reason: Potassium < 3 Losartan Pot[facility] ([facility] Mg [facility]t) [facility] Last Admin: 10/29/20 20:09 Dose: 100 mg Documented by: Metoprolol Succinate (Metoprolol Succinate 50 Mg Tab.Xl.24h) 100 mg PO DAILY [facility] Last Admin: 10/29/20 10:56 Dose: 100 mg Documented by: Nitroglycerin (Nitroglycerin 0.4 Mg Tab.Subl) 0.4 mg SL Q5M PRN PRN Reason: Chest Pain Omeprazole (Omeprazole 20 Mg Capsule) [facility] Last Admin: 10/29/20 10:56 Dose: 20 mg Documented by: Ondansetron HCl (Ondansetron 4 Mg/2 Ml Vial) 4 mg IV Q4HP PRN; Protocol PRN Reason: Nausea And Vomiting Last Admin: 10/29/20 05:53 Dose: 4 mg Documented by: Ondansetron HCl (Ondansetron 4 Mg/2 Ml Vial) 4 mg IV Q4HP PRN PRN Reason: Nausea And Vomiting Diclofenac Sodium 1 (% Gel) 2 dose TOPICAL QID PRN PRN Reason: Right hip OA Polyethylene Glycol (Polyethylene Glycol 3350 17 Gm Packet) 17 gm PO [facility] Last Admin: 10/29/20 20:10 Dose: Not Given Documented by: Potassium Chloride (Potassium Chloride 20 Meq Tablet) 40 meq PO UD PRN PRN Reason: Potssium is 3-3.5 Potassium Chloride (Potassium Chloride 20 Meq Tablet) 40 meq PO UD PRN PRN Reason: Potassium < 3 Senna (Sennosides 1 Tablet) 2 tab PO DAILYP PRN PRN Reason: Constipation Senna/Docusate Sodium (Sennosides/Docusate Sodium 1 Tab Tablet) 1 tab PO QDAY [facility] Last Admin: 10/29/20 10:56 Dose: 1 tab Documented by: Sodium Chloride (0.9 % Sodium Chloride 10 Ml Syringe) 10 ml IV Q8 [facility] Last Admin: 10/30/20 05:51 Dose: 10 ml Documented by: Sodium Chloride (0.9 % Sodium Chloride 10 Ml Syringe) 10 ml IV Q8 [facility] Last Admin: 10/30/20 05:51 Dose: Not Given Documented by: Tamsulosin HCl (Tamsulosin 0.4 Mg Capsule) 0.8 mg PO QHS [facility] Last Admin: 10/29/20 20:09 Dose: 0.8 mg Documented by: A/P Narrative A/P Narrative: A: *Volume overload with acute on chronic systolic (25-30%)/diastolic(II) CHF w/pulmonary edema: *ESRD: Follows with Dr. Villalpando *Acute hypoxic respiratory failure: 2/2 above *Hyperkalemia: *Hyponatremia: *Chronic jones use: follows with [place] *CAD w/stent: *h/o CVA: *HTN/HLD: *Anemia, chronic: *GERD: *Tobacco abuse: P: -Nephrology for dialysis and electrolyte abnormalities -midodrine during HD per Nephro -cont home ASA/Plavix/Statin -cont home BB/norvasc, restart ARB -pt/ot -Smoking cessation counseling -f/u cardiology and nephrology -ppx: heparin / home ppi full code Time Spent With Patient Time: Total time spent is greater than 50% in coordination of care (as doc umented) at patient's floor/unit and/or counseling patient: QUALITY VTE Deep Vein Thrombosis/Pulmonary Embolism Present on Admission: No
--- NOTE | 2020-10-30 08:15 | Discharge Summary ---
Discharge Provider Provider Patient information: Note initiated : 10/30/20 at 8:13 am Service Date, if different from initiated Date: [] Patient: Antoine Haney 75 y/o M admitted on 10/29/20 for SOB d/t needing dialysis. Chief Complaint: [] Date of admission: 10/29/20 01:55 Discharge date: 10/30/20 Primary care physician: Obdulia Rees Consults: 10/29/20 Consult to Physician [CONS] Stat Comment: Consulting Provider: Servando Gudino Reason For Exam: Physician to Consult Consult to Physician [CONS] Stat Comment: already talked to him Consulting Provider: Laney Rincon Reason For Exam: Physician to Consult Discharge Meds Discharge Medications Home Medications aspirin 81 mg tablet,delayed release 81 mg PO QDAY 03/06/19 [History Confirmed 10/29/20 Last Taken 10/28/20 08:00] nitroglycerin 1 tab SUBLINGUAL PRN PRN 03/06/19 [History Confirmed 10/29/20 Last Taken Unknown] omeprazole 20 mg capsule,delayed release 20 mg PO QDAY #90 cap 03/09/19 [Rx Confirmed 10/29/20 Last Taken 10/28/20 08:00] calcium acetate(phosphat bind) 667 mg capsule 2,001 mg PO .tid cc #300 cap 01/10/20 [Rx Confirmed 10/29/20 Last Taken 10/28/20 08:00] external catheter, male 31 mm to 35 mm #30 ea 06/04/20 [Rx Confirmed 10/29/20 Last Taken Unknown] diclofenac sodium 1 % topical gel 2 g TOPICAL QID PRN #100 g 06/13/20 [Rx Confirmed 10/29/20 Last Taken Unknown] albuterol sulfate 90 mcg/actuation aerosol inhaler 2 puff INHALATION .Q4-6H PRN g 06/26/20 [History Confirmed 10/29/20 Last Taken Unknown] clopidogrel 75 mg tablet 75 mg PO QHS 06/26/20 [History Confirmed 10/29/20 Last Taken 10/27/20 21:00] ondansetron 4 mg disintegrating tablet 4 mg PO ONCE PRN tab 06/26/20 [History Confirmed 10/29/20 Last Taken Unknown] sennosides 8.6 mg-docusate sodium 50 mg tablet 2 tab-cap PO QDAY tab 06/26/20 [History Confirmed 10/28/20 Last Taken Unknown] amitriptyline 10 mg tablet 10 mg PO QHS #30 tab 07/04/20 [Rx Confirmed 10/29/20 Last Taken 10/27/20 21:00] amlodipine 10 mg tablet 10 mg PO QAM #30 tab 07/04/20 [Rx Confirmed 10/29/20 Last Taken 10/28/20 08:00] losartan 100 mg tablet 100 mg PO QHS #30 tab 07/04/20 [Rx Confirmed 10/29/20 Last Taken 10/27/20 21:00] metoprolol succinate 100 mg tablet,extended release 24 hr 100 mg PO QAM #30 tab 07/04/20 [Rx Confirmed 10/29/20 Last Taken 10/28/20 08:00] tamsulosin 0.4 mg capsule 0.8 mg PO QHS #60 cap 07/04/20 [Rx Confirmed 10/28/20 Last Taken Unknown] polyethylene glycol 3350 17 gram/dose oral powder 17 g PO .COMPLEX #510 g 07/23/20 [Rx Confirmed 10/28/20 Last Taken Unknown] atorvastatin 40 mg tablet 40 mg PO QDAY 09/11/20 [History Confirmed 10/29/20 Last Taken 10/28/20 08:00] hydrocodone 5 mg-acetaminophen 325 mg tablet 1 tab PO TID PRN 09/11/20 [History Confirmed 10/29/20 Last Taken 10/28/20 08:00] COURSE Hospital Course Hospital course: Interval history: History of present illness: Mr. Haney is a 75 year old M Presented to the ED with shortness of breath stating he needed dialysis. He was 87% by EMS. Patient states he started to get short of breath on Wednesday. He says this happens occasionally and then he will come in for dialysis. In the ED he had a chest x-ray which showed pulmonary edema. His sats were in the mid 80s. Laboratory is baseline for him. Dr. rincon contacted for dialysis. Patient just finished dialysis states he does feel a lot better. 10/30 Patient almost threatening to leave AMA if it does not go today. Was on oxygen last night but he is on room air and satting low 90s this morning. Per nephrology okay for dialysis outpatient day. *Given age and comorbidities patient is extremely high risk for readmission. A: *Volume overload with acute on chronic systolic (25-30%)/diastolic(II) CHF w/pulmonary edema: *ESRD: Follows with Dr. Villalpando *Acute hypoxic respiratory failure: 2/2 above *Hyperkalemia: *Hyponatremia: *Chronic jones use: follows with [place] *CAD w/stent: *h/o CVA: *HTN/HLD: *Anemia, chronic: *GERD: *Tobacco abuse: Discharge diagnosis: Volume overload and CHF and pulmonary edema and hypoxia Secondary discharge diagnosis: Electrolyte normalities chronic Jones use CAD stroke hypertension chronic anemia GERD tobacco abuse Time Spent with Patient Time attestation: Total time spent providing and/or coordinating discharge services: Time spent: Greater than 30 minutes EXAM Constitutional Vitals: Temp Pulse Resp BP Pulse Ox 98.5 F 89 19 138/67 95 10/30/20 04:02 10/30/20 06:01 10/30/20 06:01 10/30/20 06:01 10/30/20 06:01 Discharge Data Data Completed and Pending Labs on day of discharge: Labs from last 24 hours 10/30/20 05:37 Sodium 129 L Potassium 5.1 Chloride 89 L Carbon Dioxide 24 Anion Gap 16.0 BUN 24 H Creatinine 4.6 H GFR Calculation 12 Glucose 61 L Uric Acid 2.8 Calcium 9.6 Phosphorus 2.2 L Magnesium 1.6 Total Bilirubin 0.6 Direct Bilirubin < 0.2 GGT 12 AST 11 ALT < 5 Alkaline Phosphatase 61 Lactate Dehydrogenase 194 Total Protein 7.4 Albumin 3.7 Globulin 3.7 Albumin/Globulin Ratio 1.0 Triglycerides 107 Discharge Plan Patient/Caregiver Discharge Instructions Activity: increase activity as tolerated Diet: Renal Prescriptions: Continued omeprazole 20 mg capsule,delayed release(DR/EC) 20 mg PO QDAY Qty: 90 RF: 3 calcium acetate(phosphat bind) 667 mg capsule 2,001 mg PO .tid cc Qty: 300 RF: 11 (DME) external catheter, male 31 mm to 35 mm misc See Rx Instructions .ROUTE .MEDSUPPLY Qty: 30 RF: 11 diclofenac sodium 1 % gel 2 g topical QID PRN (Reason: Right hip OA) Qty: 100 RF: 3 amitriptyline 10 mg tablet 10 mg PO QHS Qty: 30 RF: 11 amlodipine 10 mg tablet 10 mg PO QAM Qty: 30 RF: 11 metoprolol succinate 100 mg tablet extended release 24 hr 100 mg PO QAM Qty: 30 RF: 11 tamsulosin [Flomax] 0.4 mg capsule 0.8 mg PO QHS Qty: 60 RF: 11 losartan 100 mg tablet 100 mg PO QHS Qty: 30 RF: 11 polyethylene glycol 3350 [Miralax] 17 gram/dose powder 17 g PO .COMPLEX Qty: 510 RF: 11 albuterol sulfate 90 mcg/actuation HFA aerosol inhaler 2 puff inhalation .Q4-6H PRN (Reason: Chest Pain) RF: 0 ondansetron 4 mg tablet,disintegrating 4 mg PO ONCE PRN (Reason: Nausea) RF: 0 sennosides-docusate sodium [Senna Plus] 8.6-50 mg tablet 2 tab-cap PO QDAY RF: 0 clopidogrel 75 mg tablet 75 mg PO QHS RF: 0 aspirin [Adult Low Dose Aspirin] 81 mg tablet,delayed release (DR/EC) 81 mg PO QDAY RF: 0 nitroglycerin 1 tab SUBLINGUAL PRN PRN (Reason: Chest Pain) RF: 0 atorvastatin 40 mg tablet 40 mg PO QDAY RF: 0 hydrocodone-acetaminophen 5-325 mg tablet 1 tab PO TID PRN (Reason: Pain) RF: 0 Follow Up Plan Follow up with: Obdulia Rees ARNP [Primary Care Provider] - Laney Rincon MD [Physician] - Patient Disposition: Home, Self-Care Prognosis: Undetermined Overall status at discharge: patient is progressing back to baseline Discharge Orders: Discharge Order (Routine); Ordered 10/30/20 Ordered By: Servando Gutierrez [facility] VTE Deep Vein Thrombosis/Pulmonary Embolism Present on Admission: No
[2020-10-30] MEDS: METOPROLOL SUCCINATE 50 MG TAB.XL.24H PO SCH (08:24)
[2020-10-30] MEDS: DOCUSATE SODIUM 100 MG CAPSULE PO SCH (08:27)
[2020-10-30] MEDS: SENNOSIDES/DOCUSATE SODIUM 1 TAB TABLET PO SCH (08:28)
[2020-10-30] MEDS: HEPARIN 5,000 UNIT/ML VIAL SQ SCH (08:36)
[2020-10-30] MEDS: OMEPRAZOLE 20 MG CAPSULE PO SCH (08:36)
[2020-10-30] MEDS: ASPIRIN 81 MG TAB.CHEW PO SCH (08:36)
[2020-10-30] MEDS: CALCIUM ACETATE 667 MG CAPSULE PO SCH (08:36)
[2020-10-30] MEDS: ATORVASTATIN 40 MG TABLET PO SCH (08:36)
--- NOTE | 2020-10-30 10:28 | XRay Report ---
CLINICAL INFORMATION: edema COMPARISON: 10/28/2020 FINDINGS: Moderate cardiomegaly show slight worsening. Mediastinum is unremarkable. Pulmonary vessels remain mildly distended and there is moderate interstitial edema throughout both lungs. Moderate airspace disease has progressed in the right mid and lower lung. This is likely atypical edema distribution. No effusion IMPRESSION: Moderate/severe CHF worsening. Moderate airspace disease right mid and lower lung is likely an atypical distribution of edema. Superimposed infiltrate is possible but less likely Interpreted and Authenticated by: Cecilio Franco 10/30/20
== END 2020-10-30 09:35 | DRG 291 ==
LOC: ED 21:01 → ICU 10-29 01:55
PROVIDERS: ADMIT Internal Medicine; ATTEND Internal Medicine

== ENCOUNTER 2021-06-02 06:47 | Inpatient (IN) ==
[2021-06-02] MEDS ORDERED: FUROSEMIDE 40 MG/4 ML VIAL IV ONE (06:57)
[2021-06-02] MEDS ORDERED: NITROGLYCERIN 0.4 MG TAB.SUBL SL ONE (07:18)
--- NOTE | 2021-06-02 07:19 | Emergency Department Note ---
HPI General Chief complaint: Shortness of Breath/Dyspnea Stated complaint: sob Time Seen by Provider: 06/02/21 06:49 Source: patient Mode of arrival: wheelchair Limitations: altered mental status History of Present Illness HPI Narrative: Narrative: 76 yo M w/ h/o ESRD on HD TThSa, CHF, COPD, CAD, p/w SOB. He reportedly had onset of Sx around 2AM and EMS was alerted but he refused transport at that time. Finally around 630 or so his SOB had worsened and he agreed to come in to the ER. He was found to be hypoxic w/ SaO2 76% on RA by EMS, and they started him on BIPAP, bringing his sats to the 90s. He is awake but somewhat drowsy and the most information I could obtain from his was a nod "yes" to feeling SOB. He also nodded "yes" when the RN asked him if he was feeling better w/ the BIPAP mask on. Per triage report he is full code. Related Data Home Medications Medication Instructions Recorded Confirmed aspirin 81 mg tablet,delayed 81 mg PO QDAY 03/06/19 10/29/20 release (Adult Low Dose Aspirin) nitroglycerin 1 tab SUBLINGUAL PRN PRN 03/06/19 10/29/20 albuterol sulfate 90 mcg/actuation 2 puff INHALATION .Q4-6H PRN g 06/26/20 10/29/20 aerosol inhaler ondansetron 4 mg disintegrating 4 mg PO ONCE PRN tab 06/26/20 10/29/20 tablet sennosides 8.6 mg-docusate sodium 2 tab-cap PO QDAY tab 06/26/20 10/28/20 50 mg tablet (Senna Plus) atorvastatin 40 mg tablet 40 mg PO QDAY 09/11/20 10/29/20 hydrocodone 5 mg-acetaminophen 325 1 tab PO TID PRN 09/11/20 10/29/20 mg tablet escitalopram oxalate 10 mg tablet 10 mg PO QDAY 03/27/21 trazodone 50 mg tablet 50 mg PO QHS PRN 03/27/21 Previous Rx's Medication Instructions Recorded omeprazole 20 mg capsule,delayed 20 mg PO QDAY #90 cap 03/09/19 release external catheter, male 31 mm to #30 ea 06/04/20 35 mm tamsulosin 0.4 mg capsule (Flomax) 0.8 mg PO QHS #60 cap 07/04/20 polyethylene glycol 3350 17 17 g PO .COMPLEX #510 g 07/23/20 gram/dose oral powder (Miralax) metoprolol succinate 25 mg 25 mg PO QDAY #30 tab 12/17/20 tablet,extended release 24 hr losartan 100 mg tablet 100 mg PO .COMPLEX #30 tab 02/04/21 calcium acetate(phosphat bind) 667 See Rx Instructions .ROUTE 02/10/21 mg capsule .COMPLEX #300 cap amitriptyline 25 mg tablet 25 mg PO QHS #30 tab 03/20/21 acetaminophen 325 mg tablet 650 mg PO Q6H PRN #100 tab 05/20/21 diclofenac sodium 3 % topical gel 1 applic TOPICAL QID #100 g 05/29/21 clonazepam 0.5 mg tablet 0.5 mg PO QDAY PRN #30 tab 06/02/21 Allergies Allergy/AdvReac Type Severity Reaction Status Date / Time No Known Allergies Allergy Verified 10/29/20 02:41 Review of Systems ROS ROS Narrative: Narrative: All systems ED: reviewed and negative except as stated. PFSH Narrative Patient History Narrative: Narrative: Medical/Surgical/Family History All Active Problems (Updated 06/02/21 @ 18:42 by Enoc Valencia MD) Acute dyspnea (Acute) Acute pulmonary edema (Acute) Influenza A (Acute) PNA (pneumonia) (Acute) Acute UTI (Acute) Sepsis (Acute) Wheelchair bound (Chronic) Painful swelling of joint (Chronic) Arthritis (Chronic) Autoimmune disorder (Chronic) Heart disease (Chronic) CKD (chronic kidney disease) stage 5, GFR less than 15 ml/min (Chronic) COPD with acute exacerbation (Chronic) Chronic systolic (congestive) heart failure (Chronic) Acute pulmonary edema (Chronic) Acute on chronic systolic heart failure (Chronic) Other insomnia (Chronic) Weakness (Chronic) Decreased mobility (Chronic) Other anxiety states (Chronic) Pain in right hip (Chronic) Acute renal failure (Chronic) Hip fracture (Chronic) CKD (chronic kidney disease) (Chronic) Dependence on renal dialysis (Chronic ~08/2017) UTI (urinary tract infection) (Chronic) SOB (shortness of breath) (Chronic) Anemia due to chronic kidney disease (Chronic) Hyperkalemia (Chronic) Secondary hyperparathyroidism of renal origin (Chronic) Fall (Chronic ~07/2017) Femoral neck fracture (Chronic) Osteopenia (Chronic) Myocardial infarction acute (Chronic) Hypertension (Chronic) CVA (cerebral vascular accident) (Chronic) Tobacco use (Chronic) CAD (coronary artery disease) (Chronic) High cholesterol (Chronic) Abscess (Chronic) Myositis (Chronic) Abscess of skin or subcutaneous tissue (Chronic) 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) Situational depression (Chronic) Chronic blood loss anemia (Chronic) Orthopnea (Chronic) Hypotension of hemodialysis (Chronic) Arthropathies (Chronic) Incontinence (Chronic) Nausea (Chronic) Dyspnea (Chronic) Right knee pain (Chronic) Unsteadiness on feet (Chronic) 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) Other constipation (Chronic) Mixed hyperlipidemia (Chronic) Volume overload (Chronic) Acute hyperkalemia (Chronic) Chronic systolic CHF (congestive heart failure), NYHA class 2 (Chronic) Urinary retention (Chronic) Constipation (Chronic) Bilateral hydronephrosis (Chronic) Hypoxia (Chronic) Volume overload (Chronic) CKD (chronic kidney disease) requiring chronic dialysis (Chronic) Pulmonary edema (Chronic) Acute on chronic systolic (congestive) heart failure (Chronic) Anxiety and depression (Chronic) Chronic hip pain (Chronic) Malunion of fracture (Chronic) Medical History Acute on chronic systolic heart failure Acute pulmonary edema Acute renal failure Anemia due to chronic kidney disease As needed BERNABE with HD Arthritis Autoimmune disorder CAD (coronary artery disease) Chronic systolic (congestive) heart failure CKD (chronic kidney disease) CKD (chronic kidney disease) stage 5, GFR less than 15 ml/min COPD with acute exacerbation CVA (cerebral vascular accident) Decreased mobility Dependence on renal dialysis (~08/2017) Dyspnea Fall (~07/2017) Femoral neck fracture Heart disease High cholesterol Hip fracture Hyperkalemia Hypertension Amlodipine 10 mg per day Metoprolol Succinate 100 mg a day Losartan 100 mg qHS Mixed hyperlipidemia Myocardial infarction acute Nausea Osteopenia Other anxiety states Other constipation Other insomnia 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 Fistual removal x2 History of total hip replacement Family History Mother Stroke Heart disease Hypertension Lung cancer Cancer Arthritis Chronic pain Father Lung cancer Hypertension Chronic pain Heart disease Diabetes Alcohol abuse Other Heart attack Social History Smoking Status: Current every day smoker Alcohol Intake Frequency: former alcohol drinker Substance Use: does not use Exam Narrative Narrative: Narrative: General Limitations: altered mental status General appearance: Present alert and other (drowsy but follows commands, will occasionally nod yes and no) Head Head: Present atraumatic and normocephalic ENT ENT: Present other (BIPAP in place) Neck Neck: Present normal inspection Chest Chest: Present normal inspection and symmetric chest wall rise Respiratory Respiratory: Present other (tachypneic, increased WOB, B/L crackles throughout the lung cutler) Cardiovascular Cardiovascular: Present normal rhythm, tachycardia, +S1, +S2 and other (2+ B/L radial pulses. LUE AVF over bicep w/ +thrill); Absent systolic murmur or diastolic murmur Adbominal Abdominal: Present soft and normal bowel sounds; Absent distention or tenderness Extremities Extremities: Absent pedal edema Neurological Neurological: Present other (drowsy but awake and responsive, moves all extremities) Psychiatric Psychiatric: Present normal affect Skin Skin: Present warm (WNL) and dry Course Vital Signs Vital signs: Vital Signs Temperature 97.4 F 06/02/21 06:48 Pulse Rate 118 H 06/02/21 06:48 Respiratory Rate 36 H 06/02/21 06:48 Blood Pressure 123/77 06/02/21 06:48 Pulse Oximetry (%) 99 06/02/21 06:48 Temperature 97.4 F 06/02/21 06:48 Pulse Rate 116 H 06/02/21 18:33 Respiratory Rate 26 H 06/02/21 18:33 Blood Pressure 124/81 06/02/21 18:31 Pulse Oximetry (%) 100 06/02/21 18:33 MDM MDM Narrative Medical decision making narrative: 76 yo M w/ h/o ESRD on HD TThSa, CHF, COPD, CAD, p/w SOB. DDx - ACS, PE, PTX, pulmonary edema, CHF Pt presented to EMS hypoxic, in respiratory distress. He was BIBEMS already on BIPAP w/ sats back up in the 90s. He was seen by the overnight physician as he came in, EKG showed no ischemia, CXR showed pulmonary edema, and he was started on lasix. I evaluated him, noting B/L pulmonary edema on bedside US, cardiomegaly w/ decreased EF on bedside echo, and no presence of pericardial effusion or tamponade. I added on SL NTG x1 w/ good effect. His COVID swab was negative but influenza was positive and I thus started him on tamiflu. His CXR showed edema but also B/L infiltrates and I therefore started empiric CA-PNA coverage. Troponin was 0.48 (istat) however I felt that this was very likely a troponin leak given the CHF. His BNP was markedly elevated c/w clinical presentation. CBC showed WBC 18 and lactate was 3.5. His BP did trend down and I gave a 500ml NS bolus w/ good effect and further fluids were not required. It seemed to be that he was in the position of pulmonary edema d/t CHF and ESRD, but was also vasodilated from sepsis. I felt a single bolus would be reasonable hoping that I could avoid pressors and this was the case. His UA resulted showing evidence of UTI, however this would be covered by randy de jesus. CMP showed elevated BUN and Cr as expected, however LFTs were significantly elevated. The etiology was unclear. I checked APAP and ETOH levels which were negative, and a RUQ US which was also negative. This revealed B/L hydro, raising concern for pyelo, which again would be covered by rocephin. Repeat troponin was stable. Pt was tolerating BIPAP well he had no decompensation and I d/w Dr Doherty for admission. He evaluated the pt in person and decided to trend formal (rather than istat) troponins in the ED before deciding to admit the pt. They were stable and he then placed admission orders. Lab Data Lab results reviewed: Yes I reviewed the patient's lab results. Result diagrams: 06/02/21 06:50 06/02/21 06:50 Labs: Lab Results 06/02/21 06/02/21 06/02/21 Range/Units 06:50 06:50 06:50 WBC 17.9 H (4.5-11.0) K/mcL RBC 3.28 L (4.63-6.08) M/mcL Hgb 10.7 L (13.7-17.5) g/dL Hct 32.3 L (40.1-51.0) % MCV 98.5 (80.0-100.0) fL MCH 32.6 (26.0-34.0) pg MCHC 33.1 (31.0-36.0) g/dL RDW 17.0 H (11.5-14.5) % Plt Count 109 L (140-440) K/mcL MPV 12.2 H (7.4-10.4) fL Neut % (Auto) 94.8 H (38.0-78.0) % Lymph % (Auto) 2.4 L (15.5-49.0) % [place] % (Auto) 2.6 (1.0-12.0) % Eos % (Auto) 0.1 (0.0-7.0) % Baso % (Auto) 0.1 (0.0-2.0) % Lymph # (Auto) 0.43 L (1.50-4.80) K/mcL [place] # (Auto) 0.46 (0.10-0.90) K/mcL Eos # (Auto) 0.01 (0.00-0.70) K/mcL Baso # (Auto) 0.01 (0.00-0.30) K/mcL Absolute Neutrophils 16.96 H (1.80-8.00) K/mcL D-Dimer 3.17 H (0.27-0.50) ug/mL POC VBG pH (7.32-7.42) POC VBG pCO2 at Temp (41-51) POC VBG pO2 (25-40) POC VBG HCO3 (24-28) POC VBG Total CO2 (25-29) POC Venous O2 Sat (40-70) POC VBG Base Excess (-2-2) VBG Lactic Acid (0.5-2.0) mmol/L Sodium 133 (133-145) mmol/L Potassium 4.4 (3.3-5.1) mmol/L Chloride 90 L (96-108) mmol/L Carbon Dioxide 19 L (22-30) mmol/L Anion Gap 24.0 H (8.0-16.0) BUN 35 H (8-23) mg/dL Creatinine 4.6 H (0.7-1.2) mg/dL GFR Calculation 12 Glucose 73 (70-105) mg/dL POC Venous Lactate (0.5-2) Calcium 9.3 (8.6-10.4) mg/dL Total Bilirubin 1.0 (0.1-1.0) mg/dL AST 1285 H (<40) U/L ALT 268 H (<40) U/L Alkaline Phosphatase 130 H (39-117) U/L Ammonia (16-60) umol/L Total Creatine Kinase (24-195) U/L Troponin T (<0.03) ng/mL C-Reactive Protein (0.03-0.80) mg/dL NT-Pro-B Natriuret Pep (<125.0) pg/mL Total Protein 7.1 (5.9-8.4) gm/dL Albumin 3.3 (3.2-5.2) gm/dL Globulin 3.8 H (2.2-3.7) gm/dL Albumin/Globulin Ratio 0.9 L (1.0-2.3) Procalcitonin (<0.10) ng/mL Urine Color Urine Appearance (Clear) Urine pH (5.0-9.0) Ur Specific [place] (1.000-1.035) Urine Protein (Negative) mg/dL Urine Glucose (UA) (Negative) mg/dL Urine Ketones (Negative) mg/dL Urine Occult Blood (Negative) mg/dL Urine Nitrate (Negative) Urine Bilirubin (Negative) mg/dL Urine Urobilinogen mg/dL Ur Leukocyte Esterase (Negative) /uL Urine RBC (0-1) /hpf Urine WBC (0-4) /hpf Ur Squamous Epith Cells (0-4) /hpf Urine Bacteria (0) /hpf Ur Culture Indicated? Acetaminophen ug/mL Ethyl Alcohol (<0.010) gm/dL POC Troponin I 06/02/21 06/02/21 06/02/21 Range/Units 06:50 06:50 07:22 WBC (4.5-11.0) K/mcL RBC (4.63-6.08) M/mcL Hgb (13.7-17.5) g/dL Hct (40.1-51.0) % MCV (80.0-100.0) fL MCH (26.0-34.0) pg MCHC (31.0-36.0) g/dL RDW (11.5-14.5) % Plt Count (140-440) K/mcL MPV (7.4-10.4) fL Neut % (Auto) (38.0-78.0) % Lymph % (Auto) (15.5-49.0) % [place] % (Auto) (1.0-12.0) % Eos % (Auto) (0.0-7.0) % Baso % (Auto) (0.0-2.0) % Lymph # (Auto) (1.50-4.80) K/mcL [place] # (Auto) (0.10-0.90) K/mcL Eos # (Auto) (0.00-0.70) K/mcL Baso # (Auto) (0.00-0.30) K/mcL Absolute Neutrophils (1.80-8.00) K/mcL D-Dimer (0.27-0.50) ug/mL POC VBG pH (7.32-7.42) POC VBG pCO2 at Temp (41-51) POC VBG pO2 (25-40) POC VBG HCO3 (24-28) POC VBG Total CO2 (25-29) POC Venous O2 Sat (40-70) POC VBG Base Excess (-2-2) VBG Lactic Acid (0.5-2.0) mmol/L Sodium (133-145) mmol/L Potassium (3.3-5.1) mmol/L Chloride (96-108) mmol/L Carbon Dioxide (22-30) mmol/L Anion Gap (8.0-16.0) BUN (8-23) mg/dL Creatinine (0.7-1.2) mg/dL GFR Calculation Glucose (70-105) mg/dL POC Venous Lactate (0.5-2) Calcium (8.6-10.4) mg/dL Total Bilirubin (0.1-1.0) mg/dL AST (<40) U/L ALT (<40) U/L Alkaline Phosphatase (39-117) U/L Ammonia (16-60) umol/L Total Creatine Kinase (24-195) U/L Troponin T (<0.03) ng/mL C-Reactive Protein (0.03-0.80) mg/dL NT-Pro-B Natriuret Pep > 89921.0 H (<125.0) pg/mL Total Protein (5.9-8.4) gm/dL Albumin (3.2-5.2) gm/dL Globulin (2.2-3.7) gm/dL Albumin/Globulin Ratio (1.0-2.3) Procalcitonin (<0.10) ng/mL Urine Color Urine Appearance (Clear) Urine pH (5.0-9.0) Ur Specific [place] (1.000-1.035) Urine Protein (Negative) mg/dL Urine Glucose (UA) (Negative) mg/dL Urine Ketones (Negative) mg/dL Urine Occult Blood (Negative) mg/dL Urine Nitrate (Negative) Urine Bilirubin (Negative) mg/dL Urine Urobilinogen mg/dL Ur Leukocyte Esterase (Negative) /uL Urine RBC (0-1) /hpf Urine WBC (0-4) /hpf Ur Squamous Epith Cells (0-4) /hpf Urine Bacteria (0) /hpf Ur Culture Indicated? Acetaminophen < 5.0 ug/mL Ethyl Alcohol (<0.010) gm/dL POC Troponin I 0.48 06/02/21 06/02/21 06/02/21 Range/Units 07:30 07:38 10:06 WBC (4.5-11.0) K/mcL RBC (4.63-6.08) M/mcL Hgb (13.7-17.5) g/dL Hct (40.1-51.0) % MCV (80.0-100.0) fL MCH (26.0-34.0) pg MCHC (31.0-36.0) g/dL RDW (11.5-14.5) % Plt Count (140-440) K/mcL MPV (7.4-10.4) fL Neut % (Auto) (38.0-78.0) % Lymph % (Auto) (15.5-49.0) % [place] % (Auto) (1.0-12.0) % Eos % (Auto) (0.0-7.0) % Baso % (Auto) (0.0-2.0) % Lymph # (Auto) (1.50-4.80) K/mcL [place] # (Auto) (0.10-0.90) K/mcL Eos # (Auto) (0.00-0.70) K/mcL Baso # (Auto) (0.00-0.30) K/mcL Absolute Neutrophils (1.80-8.00) K/mcL D-Dimer (0.27-0.50) ug/mL POC VBG pH 7.39 (7.32-7.42) POC VBG pCO2 at Temp 40.1 L (41-51) POC VBG pO2 47 H (25-40) POC VBG HCO3 24.1 (24-28) POC VBG Total CO2 25.0 (25-29) POC Venous O2 Sat 82.0 H (40-70) POC VBG Base Excess -1.0 (-2-2) VBG Lactic Acid (0.5-2.0) mmol/L Sodium (133-145) mmol/L Potassium (3.3-5.1) mmol/L Chloride (96-108) mmol/L Carbon Dioxide (22-30) mmol/L Anion Gap (8.0-16.0) BUN (8-23) mg/dL Creatinine (0.7-1.2) mg/dL GFR Calculation Glucose (70-105) mg/dL POC Venous Lactate 3.5 H (0.5-2) Calcium (8.6-10.4) mg/dL Total Bilirubin (0.1-1.0) mg/dL AST (<40) U/L ALT (<40) U/L Alkaline Phosphatase (39-117) U/L Ammonia (16-60) umol/L Total Creatine Kinase (24-195) U/L Troponin T (<0.03) ng/mL C-Reactive Protein (0.03-0.80) mg/dL NT-Pro-B Natriuret Pep (<125.0) pg/mL Total Protein (5.9-8.4) gm/dL Albumin (3.2-5.2) gm/dL Globulin (2.2-3.7) gm/dL Albumin/Globulin Ratio (1.0-2.3) Procalcitonin (<0.10) ng/mL Urine Color Mitzi Urine Appearance Cloudy A (Clear) Urine pH 9.0 (5.0-9.0) Ur Specific [place] 1.011 (1.000-1.035) Urine Protein 100 A (Negative) mg/dL Urine Glucose (UA) Negative (Negative) mg/dL Urine Ketones Negative (Negative) mg/dL Urine Occult Blood >=1.0 A (Negative) mg/dL Urine Nitrate Negative (Negative) Urine Bilirubin Negative (Negative) mg/dL Urine Urobilinogen Negative mg/dL Ur Leukocyte Esterase 250 A (Negative) /uL Urine RBC > 182 H (0-1) /hpf Urine WBC 68 H (0-4) /hpf Ur Squamous Epith Cells 0 (0-4) /hpf Urine Bacteria None (0) /hpf Ur Culture Indicated? yes Acetaminophen ug/mL Ethyl Alcohol < 0.010 (<0.010) gm/dL POC Troponin I 06/02/21 06/02/21 06/02/21 Range/Units 11:28 11:52 13:17 WBC (4.5-11.0) K/mcL RBC (4.63-6.08) M/mcL Hgb (13.7-17.5) g/dL Hct (40.1-51.0) % MCV (80.0-100.0) fL MCH (26.0-34.0) pg MCHC (31.0-36.0) g/dL RDW (11.5-14.5) % Plt Count (140-440) K/mcL MPV (7.4-10.4) fL Neut % (Auto) (38.0-78.0) % Lymph % (Auto) (15.5-49.0) % [place] % (Auto) (1.0-12.0) % Eos % (Auto) (0.0-7.0) % Baso % (Auto) (0.0-2.0) % Lymph # (Auto) (1.50-4.80) K/mcL [place] # (Auto) (0.10-0.90) K/mcL Eos # (Auto) (0.00-0.70) K/mcL Baso # (Auto) (0.00-0.30) K/mcL Absolute Neutrophils (1.80-8.00) K/mcL D-Dimer (0.27-0.50) ug/mL POC VBG pH (7.32-7.42) POC VBG pCO2 at Temp (41-51) POC VBG pO2 (25-40) POC VBG HCO3 (24-28) POC VBG Total CO2 (25-29) POC Venous O2 Sat (40-70) POC VBG Base Excess (-2-2) VBG Lactic Acid 2.0 (0.5-2.0) mmol/L Sodium (133-145) mmol/L Potassium (3.3-5.1) mmol/L Chloride (96-108) mmol/L Carbon Dioxide (22-30) mmol/L Anion Gap (8.0-16.0) BUN (8-23) mg/dL Creatinine (0.7-1.2) mg/dL GFR Calculation Glucose (70-105) mg/dL POC Venous Lactate (0.5-2) Calcium (8.6-10.4) mg/dL Total Bilirubin (0.1-1.0) mg/dL AST (<40) U/L ALT (<40) U/L Alkaline Phosphatase (39-117) U/L Ammonia (16-60) umol/L Total Creatine Kinase (24-195) U/L Troponin T (<0.03) ng/mL C-Reactive Protein (0.03-0.80) mg/dL NT-Pro-B Natriuret Pep (<125.0) pg/mL Total Protein (5.9-8.4) gm/dL Albumin (3.2-5.2) gm/dL Globulin (2.2-3.7) gm/dL Albumin/Globulin Ratio (1.0-2.3) Procalcitonin (<0.10) ng/mL Urine Color Urine Appearance (Clear) Urine pH (5.0-9.0) Ur Specific [place] (1.000-1.035) Urine Protein (Negative) mg/dL Urine Glucose (UA) (Negative) mg/dL Urine Ketones (Negative) mg/dL Urine Occult Blood (Negative) mg/dL Urine Nitrate (Negative) Urine Bilirubin (Negative) mg/dL Urine Urobilinogen mg/dL Ur Leukocyte Esterase (Negative) /uL Urine RBC (0-1) /hpf Urine WBC (0-4) /hpf Ur Squamous Epith Cells (0-4) /hpf Urine Bacteria (0) /hpf Ur Culture Indicated? Acetaminophen ug/mL Ethyl Alcohol (<0.010) gm/dL POC Troponin I 0.46 0.50 06/02/21 06/02/21 06/02/21 Range/Units 13:17 13:18 13:18 WBC (4.5-11.0) K/mcL RBC (4.63-6.08) M/mcL Hgb (13.7-17.5) g/dL Hct (40.1-51.0) % MCV (80.0-100.0) fL MCH (26.0-34.0) pg MCHC (31.0-36.0) g/dL RDW (11.5-14.5) % Plt Count (140-440) K/mcL MPV (7.4-10.4) fL Neut % (Auto) (38.0-78.0) % Lymph % (Auto) (15.5-49.0) % [place] % (Auto) (1.0-12.0) % Eos % (Auto) (0.0-7.0) % Baso % (Auto) (0.0-2.0) % Lymph # (Auto) (1.50-4.80) K/mcL [place] # (Auto) (0.10-0.90) K/mcL Eos # (Auto) (0.00-0.70) K/mcL Baso # (Auto) (0.00-0.30) K/mcL Absolute Neutrophils (1.80-8.00) K/mcL D-Dimer (0.27-0.50) ug/mL POC VBG pH (7.32-7.42) POC VBG pCO2 at Temp (41-51) POC VBG pO2 (25-40) POC VBG HCO3 (24-28) POC VBG Total CO2 (25-29) POC Venous O2 Sat (40-70) POC VBG Base Excess (-2-2) VBG Lactic Acid (0.5-2.0) mmol/L Sodium (133-145) mmol/L Potassium (3.3-5.1) mmol/L Chloride (96-108) mmol/L Carbon Dioxide (22-30) mmol/L Anion Gap (8.0-16.0) BUN (8-23) mg/dL Creatinine (0.7-1.2) mg/dL GFR Calculation Glucose (70-105) mg/dL POC Venous Lactate (0.5-2) Calcium (8.6-10.4) mg/dL Total Bilirubin (0.1-1.0) mg/dL AST (<40) U/L ALT (<40) U/L Alkaline Phosphatase (39-117) U/L Ammonia (16-60) umol/L Total Creatine Kinase 435 H (24-195) U/L Troponin T 0.10 H* (<0.03) ng/mL C-Reactive Protein (0.03-0.80) mg/dL NT-Pro-B Natriuret Pep (<125.0) pg/mL Total Protein (5.9-8.4) gm/dL Albumin (3.2-5.2) gm/dL Globulin (2.2-3.7) gm/dL Albumin/Globulin Ratio (1.0-2.3) Procalcitonin 7.91 H (<0.10) ng/mL Urine Color Urine Appearance (Clear) Urine pH (5.0-9.0) Ur Specific [place] (1.000-1.035) Urine Protein (Negative) mg/dL Urine Glucose (UA) (Negative) mg/dL Urine Ketones (Negative) mg/dL Urine Occult Blood (Negative) mg/dL Urine Nitrate (Negative) Urine Bilirubin (Negative) mg/dL Urine Urobilinogen mg/dL Ur Leukocyte Esterase (Negative) /uL Urine RBC (0-1) /hpf Urine WBC (0-4) /hpf Ur Squamous Epith Cells (0-4) /hpf Urine Bacteria (0) /hpf Ur Culture Indicated? Acetaminophen ug/mL Ethyl Alcohol (<0.010) gm/dL POC Troponin I 06/02/21 06/02/21 06/02/21 Range/Units 13:18 16:28 16:28 WBC (4.5-11.0) K/mcL RBC (4.63-6.08) M/mcL Hgb (13.7-17.5) g/dL Hct (40.1-51.0) % MCV (80.0-100.0) fL MCH (26.0-34.0) pg MCHC (31.0-36.0) g/dL RDW (11.5-14.5) % Plt Count (140-440) K/mcL MPV (7.4-10.4) fL Neut % (Auto) (38.0-78.0) % Lymph % (Auto) (15.5-49.0) % [place] % (Auto) (1.0-12.0) % Eos % (Auto) (0.0-7.0) % Baso % (Auto) (0.0-2.0) % Lymph # (Auto) (1.50-4.80) K/mcL [place] # (Auto) (0.10-0.90) K/mcL Eos # (Auto) (0.00-0.70) K/mcL Baso # (Auto) (0.00-0.30) K/mcL Absolute Neutrophils (1.80-8.00) K/mcL D-Dimer (0.27-0.50) ug/mL POC VBG pH (7.32-7.42) POC VBG pCO2 at Temp (41-51) POC VBG pO2 (25-40) POC VBG HCO3 (24-28) POC VBG Total CO2 (25-29) POC Venous O2 Sat (40-70) POC VBG Base Excess (-2-2) VBG Lactic Acid (0.5-2.0) mmol/L Sodium (133-145) mmol/L Potassium (3.3-5.1) mmol/L Chloride (96-108) mmol/L Carbon Dioxide (22-30) mmol/L Anion Gap (8.0-16.0) BUN (8-23) mg/dL Creatinine (0.7-1.2) mg/dL GFR Calculation Glucose (70-105) mg/dL POC Venous Lactate (0.5-2) Calcium (8.6-10.4) mg/dL Total Bilirubin (0.1-1.0) mg/dL AST (<40) U/L ALT (<40) U/L Alkaline Phosphatase (39-117) U/L Ammonia 17 (16-60) umol/L Total Creatine Kinase (24-195) U/L Troponin T 0.11 H* (<0.03) ng/mL C-Reactive Protein 23.40 H (0.03-0.80) mg/dL NT-Pro-B Natriuret Pep (<125.0) pg/mL Total Protein (5.9-8.4) gm/dL Albumin (3.2-5.2) gm/dL Globulin (2.2-3.7) gm/dL Albumin/Globulin Ratio (1.0-2.3) Procalcitonin (<0.10) ng/mL Urine Color Urine Appearance (Clear) Urine pH (5.0-9.0) Ur Specific [place] (1.000-1.035) Urine Protein (Negative) mg/dL Urine Glucose (UA) (Negative) mg/dL Urine Ketones (Negative) mg/dL Urine Occult Blood (Negative) mg/dL Urine Nitrate (Negative) Urine Bilirubin (Negative) mg/dL Urine Urobilinogen mg/dL Ur Leukocyte Esterase (Negative) /uL Urine RBC (0-1) /hpf Urine WBC (0-4) /hpf Ur Squamous Epith Cells (0-4) /hpf Urine Bacteria (0) /hpf Ur Culture Indicated? Acetaminophen ug/mL Ethyl Alcohol (<0.010) gm/dL POC Troponin I ED POC Tests ED POC Tests: [facility] - SARS Antigen Negative EKG Data EKG #1: EKG attestation: Yes I reviewed and interpreted this EKG. and Yes There are no EKG findings of acute coronary syndrome EKG results narrative: Sinus tachycardia rate of 116 CO 129, QRS 149, QT 356 QTc 495 LBBB, no STEMI, negative Sgar[place]ossa Similar to previous EKG CC TIME Critical Care Time Attestation: Approximately 70 minutes of critical care time was used in order to assess and manage the high probability of imminent or life threatening deterioration to the cardiovascular and pulmonary systems which required my highest level of preparedness and interventions with frequent patient assessments. This time is excluding time spent on separately billable procedures. Discharge Plan Patient/Caregiver Discharge Instructions Pt seen by [facility]/PA only: No Clinical Impression: Acute dyspnea, Hypertension, CAD (coronary artery disease), ESRD on hemodialysis, Acute on chronic systolic (congestive) heart failure, Acute pulmonary edema, Influenza A, PNA (pneumonia), Acute UTI, Sepsis Patient Disposition: Xfer As Inpt ([facility]) Follow up with: Obduila Rees ARNP [Primary Care Provider] - Prescriptions: No Action omeprazole 20 mg capsule,delayed release(DR/EC) 20 mg PO QDAY Qty: 90 3RF (DME) external catheter, male 31 mm to 35 mm misc See Rx Instructions .ROUTE .MEDSUPPLY Qty: 30 11RF Rx Instructions: As directed daily tamsulosin [Flomax] 0.4 mg capsule 0.8 mg PO QHS Qty: 60 11RF Rx Instructions: Replaces doxazosin polyethylene glycol 3350 [Miralax] 17 gram/dose powder 17 g PO .COMPLEX Qty: 510 11RF Rx Instructions: 17 grams PO Daily and 1 extra dose prn constipation; metoprolol succinate 25 mg tablet extended release 24 hr 25 mg PO QDAY Qty: 30 11RF Rx Instructions: New dose losartan 100 mg tablet 100 mg PO .COMPLEX Qty: 30 12RF Rx Instructions: 100 mg PO nightly on TTSS and 1/2 tab (50 mg) on MWF night; calcium acetate(phosphat bind) 667 mg capsule See Rx Instructions .ROUTE .COMPLEX Qty: 300 11RF Dose Instruction: TAKE 3 CAPSULES BY MOUTH 3 TIMES DAILY FOR SECONDARY HYPERPARATHATHYROIDISM; ADJUST NEEDED BASED ON MONTHLY PHOSPHATE LEVEL Rx Instructions: TAKE 3 CAPSULES BY MOUTH 3 TIMES DAILY FOR SECONDARY HYPERPARATHATHYROIDISM; ADJUST NEEDED BASED ON MONTHLY PHOSPHATE LEVEL amitriptyline 25 mg tablet 25 mg PO QHS Qty: 30 11RF Rx Instructions: Corrected dose trazodone 50 mg tablet 50 mg PO QHS PRN0RF Rx Instructions: Prescribed by Obdulia Rees NP escitalopram oxalate 10 mg tablet 10 mg PO QDAY 0RF Rx Instructions: Ordered by Obdulia Rees NP acetaminophen 325 mg tablet 650 mg PO Q6H PRN (Reason: hip pain) Qty: 100 3RF Rx Instructions: Do not exceed 4 gm total of tylenol combining tylenol and Narcotic/tylenol diclofenac sodium 3 % gel 1 applic topical QID Qty: 100 12RF Rx Instructions: New dose and dosage frequency Stop celebrex while using this dose of diclofenac gel clonazepam 0.5 mg tablet 0.5 mg PO QDAY PRN (Reason: anxiety) Qty: 30 0RF Rx Instructions: On dialysis days, give before HD albuterol sulfate 90 mcg/actuation HFA aerosol inhaler 2 puff inhalation .Q4-6H PRN (Reason: Chest Pain) 0RF ondansetron 4 mg tablet,disintegrating 4 mg PO ONCE PRN (Reason: Nausea) 0RF sennosides-docusate sodium [Senna Plus] 8.6-50 mg tablet 2 tab-cap PO QDAY 0RF aspirin [Adult Low Dose Aspirin] 81 mg tablet,delayed release (DR/EC) 81 mg PO QDAY 0RF nitroglycerin 1 tab SUBLINGUAL PRN PRN (Reason: Chest Pain) 0RF Rx Instructions: Given 1 tab every 5 mins as needed for chest painx3 atorvastatin 40 mg tablet 40 mg PO QDAY 0RF hydrocodone-acetaminophen 5-325 mg tablet 1 tab PO TID PRN (Reason: Pain) 0RF
--- NOTE | 2021-06-02 07:50 | XRay Report ---
HISTORY: Dyspnea, pulmonary infiltrates FINDINGS: There are ill-defined alveolar opacities throughout both lungs. Lung volumes are normal. There is no lobar consolidation. The heart is mildly enlarged. No pleural effusion is present. Comparison with the prior exam from 10/30/20 shows very similar findings. The infiltrates were slightly worse on the prior exam. IMPRESSION: Stable cardiomegaly Nonspecific alveolar opacities in both lungs. This could be congestive heart failure with pulmonary edema or pneumonia Interpreted and Authenticated by: Mehrdad Mc 06/02/21
--- NOTE | 2021-06-02 07:56 | EKG ---
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 Measurements Intervals [place] Rate: 116 P: 0 UT: 129 QRS: -28 QRSD: 149 T: 149 QT: 356 QTc: 495 Interpretive Statements Sinus tachycardia Left bundle branch block Electronically Signed On 06-02-2021 7:56:01 PDT by Cecilio Mc M.D. /[id number]
[2021-06-02] MEDS ORDERED: cefTRIAXone 2 GM in DEXTROSE 5% IN WATER 50 ML IV ONE (07:57)
[2021-06-02] MEDS ORDERED: AZITHROMYCIN 500 MG in DEXTROSE 5% IN WATER 250 ML IV ONE (07:57)
[2021-06-02 08:26] LABS: Appearance,Urine CLOUDY (Clear); Bilirubin,Urine Negative (Negative); Color,Urine AMBER; Culture Indicated,Urine yes; Glucose,Urine (UA) Negative (Negative); Ketones,Urine Negative (Negative); Leukocyte Esterase,Urine 250 /uL (Negative); Nitrate,Urine Negative (Negative); Protein,Urine 100 mg/dL (Negative); Specific Gravity,Urine 1.011 (1.000-1.035); Urine Blood >=1.0 mg/dL (Negative); Urine RBC > 182 /hpf (0-1); Urine Squamous Epithelial Cell 0 /hpf (0-4); Urine WBC 68 /hpf (0-4); Urobilinogen,Urine Negative
[2021-06-02] MEDS ORDERED: OSELTAMIVIR PHOSPHATE 75 MG CAPSULE PO ONE (08:33)
[2021-06-02 08:41] LABS: ALT/SGPT 268 U/L (<40); AST/SGOT 1285 U/L (<40); Albumin 3.3 gm/dL (3.2-5.2); Albumin/Globulin Ratio 0.9 (1.0-2.3); Alkaline Phosphatase 130 U/L (39-117); Blood Urea Nitrogen 35 mg/dL (8-23); Calcium 9.3 mg/dL (8.6-10.4); Carbon Dioxide 19 mmol/L (22-30); Chloride 90 mmol/L (96-108); Globulin 3.8 gm/dL (2.2-3.7); Glomerular Filtration Rate 12; Glucose 73 mg/dL (70-105)
[2021-06-02 08:54] LABS: Basophils # (Auto) 0.01 K/mcL (0.00-0.30); Basophils % (Auto) 0.1 % (0.0-2.0); Eosinophils # (Auto) 0.01 K/mcL (0.00-0.70); Eosinophils % (Auto) 0.1 % (0.0-7.0); Hematocrit 32.3 % (40.1-51.0); Hemoglobin 10.7 g/dL (13.7-17.5); Lymphocytes # (Auto) 0.43 K/mcL (1.50-4.80); Lymphocytes % (Auto) 2.4 % (15.5-49.0); Mean Cell Volume 98.5 fL (80.0-100.0); Mean Corpuscular HGB Conc 33.1 g/dL (31.0-36.0); Mean Platelet Volume 12.2 fL (7.4-10.4); Monocytes # (Auto) 0.46 K/mcL (0.10-0.90); Monocytes % (Auto) 2.6 % (1.0-12.0); Neutrophils % (Auto) 94.8 % (38.0-78.0); Platelet Count 109 K/mcL (140-440); RBC 3.28 M/mcL (4.63-6.08); WBC 17.9 K/mcL (4.5-11.0)
[2021-06-02 09:27] LABS: proBNP > 70000.0 pg/mL (<125.0)
[2021-06-02] MEDS ORDERED: 0.9 % SODIUM CHLORIDE 500 ML IV ONE (09:41)
[2021-06-02 11:01] LABS: Alcohol, Blood < 10.0 mg/dL; Alcohol,Blood < 0.010 gm/dL (<0.010)
--- NOTE | 2021-06-02 11:10 | Ultrasound Report ---
History: Elevated liver enzymes, chronic kidney disease, on dialysis FINDINGS: The liver is normal in size and homogeneous. There is no evidence of mass or fatty infiltration. Doppler shows normal blood flow in the hepatic and portal veins. The gallbladder is normal with no stones or thickening of the wall. The wall measures 2 mm in thickness. Common bile duct is 6 mm in diameter. The pancreas is normal without evidence of a mass or inflammation. There is severe hydronephrosis in both kidneys with thinning of the cortex bilaterally. This is a chronic finding which was seen on a prior CT performed on 05/06/21. IMPRESSION: Normal liver and gallbladder Chronic bilateral hydronephrosis Interpreted and Authenticated by: Mehrdad Mc 06/02/21
--- NOTE | 2021-06-02 15:29 | Nephrology Consult Note ---
HPI Data of Consult Patient: known to practice within the last 3 years Consult date: 06/02/21 Requesting physician: Enoc Valencia Primary Care Provider: Obdulia Rees Consult Narrative Patient Information: Note initiated : 06/02/21 at 3:28 pm Patient: Antoine Haney 76 y/o M admitted on for sob. Antoine Haney is a 76-year-old male with end stage renal disease on hemodialysis, chronic systolic heart failure (Echo on 07/10/20: LVEF 25-30%), c oronary artery disease s/p stents in 2014 presented to [facility] ED for shortness of breath. In ED, he required BIPAP for hypoxia. Work up was significant for positive influenza A, leukocytosis (17.9), procalcitonin (7.91), BNP (>70,000), CXR (pulmonary edema), metabolic acidosis (19). The patient is being admitted. Nephrology consultation was requested for end stage renal disease. Chief complaint: Shortness of breath Reason for consult: End stage renal disease on hemodialysis cc:: CC: Review of Systems ROS unobtainable: due to mental status PFSH PFSH All Active Problems (Updated 06/02/21 @ 18:42 by Enoc Valencia MD) Acute dyspnea (Acute) Acute pulmonary edema (Acute) Influenza A (Acute) PNA (pneumonia) (Acute) Acute UTI (Acute) Sepsis (Acute) Wheelchair bound (Chronic) Painful swelling of joint (Chronic) Arthritis (Chronic) Autoimmune disorder (Chronic) Heart disease (Chronic) CKD (chronic kidney disease) stage 5, GFR less than 15 ml/min (Chronic) COPD with acute exacerbation (Chronic) Chronic systolic (congestive) heart failure (Chronic) Acute pulmonary edema (Chronic) Acute on chronic systolic heart failure (Chronic) Other insomnia (Chronic) Weakness (Chronic) Decreased mobility (Chronic) Other anxiety states (Chronic) Pain in right hip (Chronic) Acute renal failure (Chronic) Hip fracture (Chronic) CKD (chronic kidney disease) (Chronic) Dependence on renal dialysis (Chronic ~08/2017) UTI (urinary tract infection) (Chronic) SOB (shortness of breath) (Chronic) Anemia due to chronic kidney disease (Chronic) Hyperkalemia (Chronic) Secondary hyperparathyroidism of renal origin (Chronic) Fall (Chronic ~07/2017) Femoral neck fracture (Chronic) Osteopenia (Chronic) Myocardial infarction acute (Chronic) Hypertension (Chronic) CVA (cerebral vascular accident) (Chronic) Tobacco use (Chronic) CAD (coronary artery disease) (Chronic) High cholesterol (Chronic) Abscess (Chronic) Myositis (Chronic) Abscess of skin or subcutaneous tissue (Chronic) 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) Situational depression (Chronic) Chronic blood loss anemia (Chronic) Orthopnea (Chronic) Hypotension of hemodialysis (Chronic) Arthropathies (Chronic) Incontinence (Chronic) Nausea (Chronic) Dyspnea (Chronic) Right knee pain (Chronic) Unsteadiness on feet (Chronic) 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) Other constipation (Chronic) Mixed hyperlipidemia (Chronic) Volume overload (Chronic) Acute hyperkalemia (Chronic) Chronic systolic CHF (congestive heart failure), NYHA class 2 (Chronic) Urinary retention (Chronic) Constipation (Chronic) Bilateral hydronephrosis (Chronic) Hypoxia (Chronic) Volume overload (Chronic) CKD (chronic kidney disease) requiring chronic dialysis (Chronic) Pulmonary edema (Chronic) Acute on chronic systolic (congestive) heart failure (Chronic) Anxiety and depression (Chronic) Chronic hip pain (Chronic) Malunion of fracture (Chronic) Medical History Acute on chronic systolic heart failure Acute pulmonary edema Acute renal failure Anemia due to chronic kidney disease As needed BERNABE with HD Arthritis Autoimmune disorder CAD (coronary artery disease) Chronic systolic (congestive) heart failure CKD (chronic kidney disease) CKD (chronic kidney disease) stage 5, GFR less than 15 ml/min COPD with acute exacerbation CVA (cerebral vascular accident) Decreased mobility Dependence on renal dialysis (~08/2017) Dyspnea Fall (~07/2017) Femoral neck fracture Heart disease High cholesterol Hip fracture Hyperkalemia Hypertension Amlodipine 10 mg per day Metoprolol Succinate 100 mg a day Losartan 100 mg qHS Mixed hyperlipidemia Myocardial infarction acute Nausea Osteopenia Other anxiety states Other constipation Other insomnia Other prison (current) drug therapy Pain in right hip Painful swelling of joint Right knee pain Secondary hyperparathyroidism of renal origin Ca Acetate SOB (shortness of breath) Tobacco use Unsteadiness on feet UTI (urinary tract infection) Weakness Wheelchair bound Surgical History H/O heart artery stent (01/20/16) History of hip surgery due to hip fracture History of surgery Left tunneled central line History of surgical procedure Fistula in left arm. Fistual removal x2 History of total hip replacement Family History Mother Stroke Heart disease Hypertension Lung cancer Cancer Arthritis Chronic pain Father Lung cancer Hypertension Chronic pain Heart disease Diabetes Alcohol abuse Other Heart attack Social History (Updated 05/13/21 @ 11:05 by Laure Sanchez) marital status: education level: high school occupational status: employed and retired occupation: [employer] smoking status: Current every day smoker tobacco type: cigarettes per day: 4 pack-years: 50 alcohol intake frequency: former alcohol drinker substance use type: does not use MEDS/ALLERGIES Home Medications and Allergies Home Medications Medication Instructions Recorded Confirmed Type aspirin 81 mg tablet,delayed 81 mg PO QDAY 03/06/19 10/29/20 History release (Adult Low Dose Aspirin) nitroglycerin 1 tab SUBLINGUAL PRN PRN 03/06/19 10/29/20 History omeprazole 20 mg capsule,delayed 20 mg PO QDAY #90 cap 03/09/19 10/29/20 Rx release external catheter, male 31 mm to #30 ea 06/04/20 10/29/20 Rx 35 mm albuterol sulfate 90 mcg/actuation 2 puff INHALATION .Q4-6H PRN g 06/26/20 10/29/20 History aerosol inhaler ondansetron 4 mg disintegrating 4 mg PO ONCE PRN tab 06/26/20 10/29/20 History tablet sennosides 8.6 mg-docusate sodium 2 tab-cap PO QDAY tab 06/26/20 10/28/20 History 50 mg tablet (Senna Plus) tamsulosin 0.4 mg capsule (Flomax) 0.8 mg PO QHS #60 cap 07/04/20 10/28/20 Rx polyethylene glycol 3350 17 17 g PO .COMPLEX #510 g 07/23/20 10/28/20 Rx gram/dose oral powder (Miralax) atorvastatin 40 mg tablet 40 mg PO QDAY 09/11/20 10/29/20 History hydrocodone 5 mg-acetaminophen 325 1 tab PO TID PRN 09/11/20 10/29/20 History mg tablet metoprolol succinate 25 mg 25 mg PO QDAY #30 tab 12/17/20 Rx tablet,extended release 24 hr losartan 100 mg tablet 100 mg PO .COMPLEX #30 tab 02/04/21 Rx calcium acetate(phosphat bind) 667 See Rx Instructions .ROUTE 02/10/21 Rx mg capsule .COMPLEX #300 cap amitriptyline 25 mg tablet 25 mg PO QHS #30 tab 03/20/21 Rx escitalopram oxalate 10 mg tablet 10 mg PO QDAY 03/27/21 History trazodone 50 mg tablet 50 mg PO QHS PRN 03/27/21 History acetaminophen 325 mg tablet 650 mg PO Q6H PRN #100 tab 05/20/21 Rx diclofenac sodium 3 % topical gel 1 applic TOPICAL QID #100 g 05/29/21 Rx clonazepam 0.5 mg tablet 0.5 mg PO QDAY PRN #30 tab 06/02/21 Rx Allergies Allergy/AdvReac Type Severity Reaction Status Date / Time No Known Allergies Allergy Verified 10/29/20 02:41 Physical Examination Vital Signs Vital signs: Temp Pulse Resp BP Pulse Ox 97.4 F 111 H 31 H 117/92 100 06/02/21 06:48 06/02/21 15:13 06/02/21 15:13 06/02/21 15:11 06/02/21 15:13 General Appearance General appearance: chronically ill Exam Narrative: Altered mental status on BIPAP EENT EENT: mucous membranes dry Respiratory Respiratory: course breath sounds Cardiovascular Cardiology: edema and regular rate Gastrointestinal Gastrointestinal: no tenderness Integumentary Integumentary: no rash Neurologic Neurologic: obtunded Results Lab Results Result Diagrams: 06/02/21 06:50 06/02/21 06:50 Lab results: Most recent lab results Calcium 9.3 mg/dL (8.6-10.4) 06/02/21 06:50 A/P Assessment and plan (1) ESRD on hemodialysis: Assessment and plan: Antoine Haney is a 76-year-old male with end stage renal disease on hemodialysis, chronic systolic heart failure (Echo on 07/10/20: LVEF 25-30%), coronary artery disease s/p stents in 2014 presented to [facility] ED for shortness of breath. In ED, he required BIPAP for hypoxia. Work up was significant for positive influenza A, leukocytosis (17.9), procalcitonin (7.91), BNP (>70,000), CXR (pulmonary edema), metabolic acidosis (19). The patient is being admitted. Nephrology consultation was requested for end stage renal disease. End stage renal disease on hemodialysis on Wednesday, and Wednesday at [facility]. Chronic anemia due to ESRD. Acute on chronic systolic heart failure (Echo on 07/10/20: LVEF 25-30%) with fluid overload and suspected pulmonary edema. Acute hypoxic respiratory failure due to influenza A and pulmonary edema. Recommendations/Plan: Hemodialysis today for fluid overload, then evaluate daily. Midodrine 10 mg PO x 1 before hemodialysis. Status: Chronic Time Spent With Patient Time: Total time spent is greater than 50% in coordination of care (as documented) at patient's floor/unit and/or counseling patient:
--- NOTE | 2021-06-02 16:17 | Internal Med History&Physical ---
HPI History of Present Illness Patient information: Note initiated : 06/02/21 at 4:14 pm Service Date, if different from initiated Date: [] Patient: Antoine Haney 76 y/o M admitted on for sob. Chief Complaint: [] History of present illness: Mr. Haney is a 76 year old male with a extensive medical history consisting of hypertension, hyperlipidemia, coronary artery disease status post remote stents, heart failure with reduced ejection fraction with LVEF 25 to 30%, ESRD on hemodialysis, chronic bilateral hydronephrosis, history of stroke, history of right total hip arthroplasty, wheelchair-bound status who lives in an assisted living facility and recently has experienced a general decline in health who presented to the emergency department on 06/02/2021 for shortness of breath. In the emergency department, the patient was found to be hypoxic and started on BiPAP. Work-up included routine blood work that showed a leukocytosis, left shift, lactic acid of 3.5 concerning for sepsis. In addition, the patient had elevated LFTs showing AST markedly greater than ALT, AST 1285 versus ALT 268, and normal bilirubin and mildly elevated alkaline phosphatase. Creatinine kinase was mildly elevated at 435. EKG showed a left bundle branch block which is chronic, troponin T was elevated at 0.1 (normal less than 0.03). NT proBNP was greater than 70,000. In the ED, the patient received an IV fluid bolus with normal saline followed by Lasix 80 mg IV once. Repeat lactic acid improved to 2.0. D-dimer was elevated at 3.17. A chest x-ray showed stable cardiomegaly, nonspecific alveolar opacity in both lungs that could be due to congestive heart failure with pulmonary edema or pneumonia. Right upper quadrant abdominal ultrasound showed a normal liver and gallbladder, chronic bilateral hydronephrosis. Jessica testing was positive for influenza A, negative for influenza B and SARS-CoV-2. Hospital medicine was consulted for admission. Patient was seen in the ED, he was on BiPAP and unable to provide a history due to lethargy. Review of the patient's recent past medical records at [facility] indicate that he was seen in the ED after a fall in May 2021. The patient had a pelvis CT done which showed malunion of an old right hip fracture transfixed by 3 screws, there was marked erosion of the superior femoral head and neck with the 2 most superior screws projecting through the cortex into the joint space. A large effusion was noted with chronic erosion of the bony acetabulum suspicious for septic arthritis complicated by osteomyelitis. Radiology performed a arthrocentesis under fluoroscopy draining 1 0 cc of sanguinous fluid. Gram stain of the synovial fluid showed rare gram- positive cocci, the culture did not grow any organisms. Case management was consulted to help with acquiring prior CODE STATUS and identifying a substitute decision-maker. The patient's ex-, Katie Haney was identified as his power of litigation attorney, she was contacted and said that his code status should be full code. Review of systems: Unable to obtain due to lethargy. Physical exam General: Chronically ill-appearing male on BiPAP appears to be in respiratory distress. Head: Atraumatic, normal inspection. Eyes: normal appearance, no scleral icterus. Neck: full ROM Respiratory: On BiPAP 12/5 FiO2 35, tachypnea with accessory muscle use. Cardiovascular: Regular tachycardia, S1, S2. GI/Abdominal: soft, nontender, no guarding. Extremities: full range of motion, nontender. Neurological: CN II-XII intact, intact motor, intact sensation. Psychiatric: Impaired cognition Skin: Extremities cool to touch. PFSH PFSH All Active Problems Wheelchair bound (Chronic) Painful swelling of joint (Chronic) Arthritis (Chronic) Autoimmune disorder (Chronic) Heart disease (Chronic) CKD (chronic kidney disease) stage 5, GFR less than 15 ml/min (Chronic) COPD with acute exacerbation (Chronic) Chronic systolic (congestive) heart failure (Chronic) Acute pulmonary edema (Chronic) Acute on chronic systolic heart failure (Chronic) Other insomnia (Chronic) Weakness (Chronic) Decreased mobility (Chronic) Other anxiety states (Chronic) Pain in right hip (Chronic) Acute renal failure (Chronic) Hip fracture (Chronic) CKD (chronic kidney disease) (Chronic) Dependence on renal dialysis (Chronic ~08/2017) UTI (urinary tract infection) (Chronic) SOB (shortness of breath) (Chronic) Anemia due to chronic kidney disease (Chronic) Hyperkalemia (Chronic) Secondary hyperparathyroidism of renal origin (Chronic) Fall (Chronic ~07/2017) Femoral neck fracture (Chronic) Osteopenia (Chronic) Myocardial infarction acute (Chronic) Hypertension (Chronic) CVA (cerebral vascular accident) (Chronic) Tobacco use (Chronic) CAD (coronary artery disease) (Chronic) High cholesterol (Chronic) Abscess (Chronic) Myositis (Chronic) Abscess of skin or subcutaneous tissue (Chronic) 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) Situational depression (Chronic) Chronic blood loss anemia (Chronic) Orthopnea (Chronic) Hypotension of hemodialysis (Chronic) Arthropathies (Chronic) Incontinence (Chronic) Nausea (Chronic) Dyspnea (Chronic) Right knee pain (Chronic) Unsteadiness on feet (Chronic) Other senior living (current) drug therapy (Chronic) Other constipation (Chronic) Mixed hyperlipidemia (Chronic) Volume overload (Chronic) Acute hyperkalemia (Chronic) Chronic systolic CHF (congestive heart failure), NYHA class 2 (Chronic) Urinary retention (Chronic) Constipation (Chronic) Bilateral hydronephrosis (Chronic) Hypoxia (Chronic) Volume overload (Chronic) CKD (chronic kidney disease) requiring chronic dialysis (Chronic) Pulmonary edema (Chronic) Acute on chronic systolic (congestive) heart failure (Chronic) Anxiety and depression (Chronic) Chronic hip pain (Chronic) Malunion of fracture (Chronic) Medical History Acute on chronic systolic heart failure Acute pulmonary edema Acute renal failure Anemia due to chronic kidney disease As needed BERNABE with HD Arthritis Autoimmune disorder CAD (coronary artery disease) Chronic systolic (congestive) heart failure CKD (chronic kidney disease) CKD (chronic kidney disease) stage 5, GFR less than 15 ml/min COPD with acute exacerbation CVA (cerebral vascular accident) Decreased mobility Dependence on renal dialysis (~08/2017) Dyspnea Fall (~07/2017) Femoral neck fracture Heart disease High cholesterol Hip fracture Hyperkalemia Hypertension Amlodipine 10 mg per day Metoprolol Succinate 100 mg a day Losartan 100 mg qHS Mixed hyperlipidemia Myocardial infarction acute Nausea Osteopenia Other anxiety states Other constipation Other insomnia Other senior living (current) drug therapy Pain in right hip Painful swelling of joint Right knee pain Secondary hyperparathyroidism of renal origin Ca Acetate SOB (shortness of breath) Tobacco use Unsteadiness on feet UTI (urinary tract infection) Weakness Wheelchair bound Surgical History H/O heart artery stent (01/20/16) History of hip surgery due to hip fracture History of surgery Left tunneled central line History of surgical procedure Fistula in left arm. Fistual removal x2 History of total hip replacement Family History Mother Stroke Heart disease Hypertension Lung cancer Cancer Arthritis Chronic pain Father Lung cancer Hypertension Chronic pain Heart disease Diabetes Alcohol abuse Other Heart attack Social History (Updated 05/13/21 @ 11:05 by Laure Sanchez) marital status: education level: high school occupational status: employed and retired occupation: [employer] smoking status: Current every day smoker tobacco type: cigarettes per day: 4 pack-years: 50 alcohol intake frequency: former alcohol drinker substance use type: does not use MEDS/ALLERGIES Home Medications and Allergies Home Medications Medication Instructions Recorded Confirmed Type aspirin 81 mg tablet,delayed 81 mg PO QDAY 03/06/19 10/29/20 History release (Adult Low Dose Aspirin) nitroglycerin 1 tab SUBLINGUAL PRN PRN 03/06/19 10/29/20 History omeprazole 20 mg capsule,delayed 20 mg PO QDAY #90 cap 03/09/19 10/29/20 Rx release external catheter, male 31 mm to #30 ea 06/04/20 10/29/20 Rx 35 mm albuterol sulfate 90 mcg/actuation 2 puff INHALATION .Q4-6H PRN g 06/26/20 10/29/20 History aerosol inhaler ondansetron 4 mg disintegrating 4 mg PO ONCE PRN tab 06/26/20 10/29/20 History tablet sennosides 8.6 mg-docusate sodium 2 tab-cap PO QDAY tab 06/26/20 10/28/20 History 50 mg tablet (Senna Plus) tamsulosin 0.4 mg capsule (Flomax) 0.8 mg PO QHS #60 cap 07/04/20 10/28/20 Rx polyethylene glycol 3350 17 17 g PO .COMPLEX #510 g 07/23/20 10/28/20 Rx gram/dose oral powder (Miralax) atorvastatin 40 mg tablet 40 mg PO QDAY 09/11/20 10/29/20 History hydrocodone 5 mg-acetaminophen 325 1 tab PO TID PRN 09/11/20 10/29/20 History mg tablet metoprolol succinate 25 mg 25 mg PO QDAY #30 tab 12/17/20 Rx tablet,extended release 24 hr losartan 100 mg tablet 100 mg PO .COMPLEX #30 tab 02/04/21 Rx calcium acetate(phosphat bind) 667 See Rx Instructions .ROUTE 02/10/21 Rx mg capsule .COMPLEX #300 cap amitriptyline 25 mg tablet 25 mg PO QHS #30 tab 03/20/21 Rx escitalopram oxalate 10 mg tablet 10 mg PO QDAY 03/27/21 History trazodone 50 mg tablet 50 mg PO QHS PRN 03/27/21 History acetaminophen 325 mg tablet 650 mg PO Q6H PRN #100 tab 05/20/21 Rx diclofenac sodium 3 % topical gel 1 applic TOPICAL QID #100 g 05/29/21 Rx clonazepam 0.5 mg tablet 0.5 mg PO QDAY PRN #30 tab 06/02/21 Rx Allergies Allergy/AdvReac Type Severity Reaction Status Date / Time No Known Allergies Allergy Verified 10/29/20 02:41 EXAM Constitutional Vitals: Temp Pulse Resp BP Pulse Ox 97.4 F 110 H 25 H 144/47 100 06/02/21 06:48 06/02/21 15:40 06/02/21 15:40 06/02/21 15:32 06/02/21 15:40 DATA Data Completed and Pending Labs: Labs from last 24 hours 06/02/21 06/02/21 06/02/21 13:18 13:18 13:18 WBC RBC Hgb Hct MCV MCH MCHC RDW Plt Count MPV Neut % (Auto) Lymph % (Auto) Garfield % (Auto) Eos % (Auto) Baso % (Auto) Lymph # (Auto) Garfield # (Auto) Eos # (Auto) Baso # (Auto) Absolute Neutrophils D-Dimer POC VBG pH POC VBG pCO2 at Temp POC VBG pO2 POC VBG HCO3 POC VBG Total CO2 POC Venous O2 Sat POC VBG Base Excess VBG Lactic Acid Sodium Potassium Chloride Carbon Dioxide Anion Gap BUN Creatinine GFR Calculation Glucose POC Venous Lactate Calcium Total Bilirubin AST ALT Alkaline Phosphatase Total Creatine Kinase 435 H Troponin T 0.10 H* C-Reactive Protein Pending NT-Pro-B Natriuret Pep Total Protein Albumin Globulin Albumin/Globulin Ratio Procalcitonin Urine Color Urine Appearance Urine pH Ur Specific [place] Urine Protein Urine Glucose (UA) Urine Ketones Urine Occult Blood Urine Nitrate Urine Bilirubin Urine Urobilinogen Ur Leukocyte Esterase Urine RBC Urine WBC Ur Squamous Epith Cells Urine Bacteria Ur Culture Indicated? Acetaminophen Ethyl Alcohol POC Troponin I 06/02/21 06/02/21 06/02/21 13:17 13:17 11:52 WBC RBC Hgb Hct MCV MCH MCHC RDW Plt Count MPV Neut % (Auto) Lymph % (Auto) Garfield % (Auto) Eos % (Auto) Baso % (Auto) Lymph # (Auto) Garfield # (Auto) Eos # (Auto) Baso # (Auto) Absolute Neutrophils D-Dimer POC VBG pH POC VBG pCO2 at Temp POC VBG pO2 POC VBG HCO3 POC VBG Total CO2 POC Venous O2 Sat POC VBG Base Excess VBG Lactic Acid 2.0 Sodium Potassium Chloride Carbon Dioxide Anion Gap BUN Creatinine GFR Calculation Glucose POC Venous Lactate Calcium Total Bilirubin AST ALT Alkaline Phosphatase Total Creatine Kinase Troponin T C-Reactive Protein NT-Pro-B Natriuret Pep Total Protein Albumin Globulin Albumin/Globulin Ratio Procalcitonin 7.91 H Urine Color Urine Appearance Urine pH Ur Specific [place] Urine Protein Urine Glucose (UA) Urine Ketones Urine Occult Blood Urine Nitrate Urine Bilirubin Urine Urobilinogen Ur Leukocyte Esterase Urine RBC Urine WBC Ur Squamous Epith Cells Urine Bacteria Ur Culture Indicated? Acetaminophen Ethyl Alcohol POC Troponin I 0.50 06/02/21 06/02/21 06/02/21 11:28 10:06 07:38 WBC RBC Hgb Hct MCV MCH MCHC RDW Plt Count MPV Neut % (Auto) Lymph % (Auto) Garfield % (Auto) Eos % (Auto) Baso % (Auto) Lymph # (Auto) Garfield # (Auto) Eos # (Auto) Baso # (Auto) Absolute Neutrophils D-Dimer POC VBG pH 7.39 POC VBG pCO2 at Temp 40.1 L POC VBG pO2 47 H POC VBG HCO3 24.1 POC VBG Total CO2 25.0 POC Venous O2 Sat 82.0 H POC VBG Base Excess -1.0 VBG Lactic Acid Sodium Potassium Chloride Carbon Dioxide Anion Gap BUN Creatinine GFR Calculation Glucose POC Venous Lactate 3.5 H Calcium Total Bilirubin AST ALT Alkaline Phosphatase Total Creatine Kinase Troponin T C-Reactive Protein NT-Pro-B Natriuret Pep Total Protein Albumin Globulin Albumin/Globulin Ratio Procalcitonin Urine Color Urine Appearance Urine pH Ur Specific [place] Urine Protein Urine Glucose (UA) Urine Ketones Urine Occult Blood Urine Nitrate Urine Bilirubin Urine Urobilinogen Ur Leukocyte Esterase Urine RBC Urine WBC Ur Squamous Epith Cells Urine Bacteria Ur Culture Indicated? Acetaminophen Ethyl Alcohol < 0.010 POC Troponin I 0.46 06/02/21 06/02/21 06/02/21 07:30 07:22 06:50 WBC RBC Hgb Hct MCV MCH MCHC RDW Plt Count MPV Neut % (Auto) Lymph % (Auto) Garfield % (Auto) Eos % (Auto) Baso % (Auto) Lymph # (Auto) Garfield # (Auto) Eos # (Auto) Baso # (Auto) Absolute Neutrophils D-Dimer POC VBG pH POC VBG pCO2 at Temp POC VBG pO2 POC VBG HCO3 POC VBG Total CO2 POC Venous O2 Sat POC VBG Base Excess VBG Lactic Acid Sodium Potassium Chloride Carbon Dioxide Anion Gap BUN Creatinine GFR Calculation Glucose POC Venous Lactate Calcium Total Bilirubin AST ALT Alkaline Phosphatase Total Creatine Kinase Troponin T C-Reactive Protein NT-Pro-B Natriuret Pep Total Protein Albumin Globulin Albumin/Globulin Ratio Procalcitonin Urine Color Mitzi Urine Appearance Cloudy A Urine pH 9.0 Ur Specific Edmond 1.011 Urine Protein 100 A Urine Glucose (UA) Negative Urine Ketones Negative Urine Occult Blood >=1.0 A Urine Nitrate Negative Urine Bilirubin Negative Urine Urobilinogen Negative Ur Leukocyte Esterase 250 A Urine RBC > 182 H Urine WBC 68 H Ur Squamous Epith Cells 0 Urine Bacteria None Ur Culture Indicated? yes Acetaminophen < 5.0 Ethyl Alcohol POC Troponin I 0.48 06/02/21 06/02/21 06/02/21 06:50 06:50 06:50 WBC RBC Hgb Hct MCV MCH MCHC RDW Plt Count MPV Neut % (Auto) Lymph % (Auto) Garfield % (Auto) Eos % (Auto) Baso % (Auto) Lymph # (Auto) Garfield # (Auto) Eos # (Auto) Baso # (Auto) Absolute Neutrophils D-Dimer 3.17 H POC VBG pH POC VBG pCO2 at Temp POC VBG pO2 POC VBG HCO3 POC VBG Total CO2 POC Venous O2 Sat POC VBG Base Excess VBG Lactic Acid Sodium 133 Potassium 4.4 Chloride 90 L Carbon Dioxide 19 L Anion Gap 24.0 H BUN 35 H Creatinine 4.6 H GFR Calculation 12 Glucose 73 POC Venous Lactate Calcium 9.3 Total Bilirubin 1.0 AST 1285 H ALT 268 H Alkaline Phosphatase 130 H Total Creatine Kinase Troponin T C-Reactive Protein NT-Pro-B Natriuret Pep > 05677.0 H Total Protein 7.1 Albumin 3.3 Globulin 3.8 H Albumin/Globulin Ratio 0.9 L Procalcitonin Urine Color Urine Appearance Urine pH Ur Specific Ed[place] Urine Protein Urine Glucose (UA) Urine Ketones Urine Occult Blood Urine Nitrate Urine Bilirubin Urine Urobilinogen Ur Leukocyte Esterase Urine RBC Urine WBC Ur Squamous Epith Cells Urine Bacteria Ur Culture Indicated? Acetaminophen Ethyl Alcohol POC Troponin I 06/02/21 06:50 WBC 17.9 H RBC 3.28 L Hgb 10.7 L Hct 32.3 L MCV 98.5 MCH 32.6 MCHC 33.1 RDW 17.0 H Plt Count 109 L MPV 12.2 H Neut % (Auto) 94.8 H Lymph % (Auto) 2.4 L Garfield % (Auto) 2.6 Eos % (Auto) 0.1 Baso % (Auto) 0.1 Lymph # (Auto) 0.43 L Garfield # (Auto) 0.46 Eos # (Auto) 0.01 Baso # (Auto) 0.01 Absolute Neutrophils 16.96 H D-Dimer POC VBG pH POC VBG pCO2 at Temp POC VBG pO2 POC VBG HCO3 POC VBG Total CO2 POC Venous O2 Sat POC VBG Base Excess VBG Lactic Acid Sodium Potassium Chloride Carbon Dioxide Anion Gap BUN Creatinine GFR Calculation Glucose POC Venous Lactate Calcium Total Bilirubin AST ALT Alkaline Phosphatase Total Creatine Kinase Troponin T C-Reactive Protein NT-Pro-B Natriuret Pep Total Protein Albumin Globulin Albumin/Globulin Ratio Procalcitonin Urine Color Urine Appearance Urine pH Ur Specific Ed[place] Urine Protein Urine Glucose (UA) Urine Ketones Urine Occult Blood Urine Nitrate Urine Bilirubin Urine Urobilinogen Ur Leukocyte Esterase Urine RBC Urine WBC Ur Squamous Epith Cells Urine Bacteria Ur Culture Indicated? Acetaminophen Ethyl Alcohol POC Troponin I A/P Narrative A/P Narrative: Assessment: 76 year old male with a extensive medical history consisting of hypertension, hyperlipidemia, coronary artery disease status post remote stents, heart failure with reduced ejection fraction with LVEF 25 to 30%, ESRD on hemodialysis, chronic bilateral hydronephrosis, history of stroke, history of right total hip arthroplasty, wheelchair-bound status who lives in an assisted living facility and recently has experienced a general decline in health who presented to the emergency department on 06/02/2021 for shortness of breath. Patient was found to have acute hypoxic respiratory failure, tested positive for influenza A and there is concern the patient may have a community-acquired pneumonia or other underlying bacterial infection as he was septic on presentation to the ED. 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 -Vancomycin IV for possible right hip infection. -MRSA nasal PCR. -Renally dosed Tamiflu 30 mg after every hemodialysis session for at least 5 days. -Oxygen supplementation, goal sats 88 to 92% for COPD. -BiPAP for now, wean as able to heated and humidified high flow nasal cannula or nasal cannula. -Follow urine and blood cultures. -Solu-Medrol IV twice daily for possible COPD exacerbation. -Scheduled duo nebs and as needed albuterol nebs. -Trend troponin. -Aspirin and Atorvastatin for CAD. -CTA chest to evaluate for PE and further evaluate lung parenchyma. -MRI without contrast of right hip. -Home medication reconciliation, resume important meds. -hospital monitor. -N.p.o. for now due to increased risk of aspiration. -Nephrology consult for ESRD managed with hemodialysis. -Consider orthopedic surgery consult depending on MRI hip scan results. -Katie Haney [phone] is the patient's ex- and POA. -DVT prophylaxis: Heparin SQ -Code status: Full -Disposition: TBD Time Spent With Patient Time: Total time spent is greater than 50% in coordination of care (as documented) at patient's floor/unit and/or counseling patient: QUALITY Stroke Symptom Onset Unknown: No
[2021-06-02] MEDS ORDERED: ONDANSETRON 4 MG/2 ML VIAL IV PRN (18:57)
[2021-06-02] MEDS ORDERED: SENNOSIDES 1 TABLET PO PRN (18:57)
[2021-06-02] MEDS ORDERED: LACTULOSE 20 GM/30 ML ORAL.SOL PO PRN (18:57)
[2021-06-02] MEDS ORDERED: ALBUTEROL SULFATE 2.5 MG/3 ML NEBULIZER NEB PRN (18:57)
[2021-06-02] MEDS ORDERED: VANCOMYCIN PER PHARMACY IV ONE (18:57)
[2021-06-02] MEDS ORDERED: MIDODRINE 5 MG TABLET PO ONE (19:05)
[2021-06-02] MEDS: IPRATROPIUM/ALBUTEROL 3 ML AMPUL.NEB NEB SCH ×2 (19:30→23:35)
[2021-06-02 19:56] LABS: ALT/SGPT 210 U/L (<40); AST/SGOT 745 U/L (<40); Albumin 3.1 gm/dL (3.2-5.2); Albumin/Globulin Ratio 0.8 (1.0-2.3); Alkaline Phosphatase 118 U/L (39-117); Bilirubin,Direct 0.7 mg/dL (<0.3); Bilirubin,Total 0.9 mg/dL (0.1-1.0); Blood Urea Nitrogen 42 mg/dL (8-23); Calcium 9.2 mg/dL (8.6-10.4); Carbon Dioxide 22 mmol/L (22-30); Chloride 91 mmol/L (96-108); Globulin 3.7 gm/dL (2.2-3.7); Glomerular Filtration Rate 11; Glucose 80 mg/dL (70-105); Lactate Dehydrogenase 488 U/L (135-225); Phosphorous 2.9 mg/dL (2.5-4.5); Triglycerides 111 mg/dL (<150); Uric Acid 7.2 mg/dL (2.5-8.0)
[2021-06-02] MEDS: methylPREDNISolone SOD SUCC 40 MG/ML VIAL IV SCH ×2 (21:19→23:42)
[2021-06-02] MEDS: DOCUSATE SODIUM 100 MG CAPSULE PO SCH (21:20)
[2021-06-02] MEDS ORDERED: VASOPRESSIN 20 UNIT in DEXTROSE 5% IN WATER 99 ML IV SCH (21:30)
[2021-06-02] MEDS ORDERED: VASOPRESSIN 20 UNIT/ML VIAL ONE (21:41)
[2021-06-02] MEDS: 0.9 % SODIUM CHLORIDE 250 ML IV SCH (21:45)
[2021-06-02] MEDS: HEPARIN 5,000 UNIT/ML VIAL SQ SCH (22:08)
[2021-06-02] MEDS: 0.9 % SODIUM CHLORIDE 10 ML SYRINGE IV SCH (22:08)
[2021-06-02] MEDS ORDERED: IOPAMIDOL 100 ML BOTTLE IV ONE (23:31)
[2021-06-03] MEDS ORDERED: OSELTAMIVIR PHOSPHATE 30 MG CAPSULE PO ONE
[2021-06-03] MEDS: IPRATROPIUM/ALBUTEROL 3 ML AMPUL.NEB NEB SCH ×4 (04:13→17:50)
[2021-06-03] MEDS: 0.9 % SODIUM CHLORIDE 10 ML SYRINGE IV SCH ×3 (05:41→20:52)
[2021-06-03 06:43] LABS: ALT/SGPT 150 U/L (<40); AST/SGOT 405 U/L (<40); Albumin 2.3 gm/dL (3.2-5.2); Albumin/Globulin Ratio 0.7 (1.0-2.3); Alkaline Phosphatase 99 U/L (39-117); Bilirubin,Direct 0.8 mg/dL (<0.3); Blood Urea Nitrogen 34 mg/dL (8-23); Calcium 8.6 mg/dL (8.6-10.4); Carbon Dioxide 24 mmol/L (22-30); Chloride 94 mmol/L (96-108); Globulin 3.5 gm/dL (2.2-3.7); Glomerular Filtration Rate 13; Glucose 86 mg/dL (70-105); Lactate Dehydrogenase 328 U/L (135-225); Phosphorous 2.5 mg/dL (2.5-4.5); Triglycerides 113 mg/dL (<150); Uric Acid 5.2 mg/dL (2.5-8.0)
[2021-06-03 06:48] LABS: Hematocrit 31.6 % (40.1-51.0); Hemoglobin 10.4 g/dL (13.7-17.5); Mean Cell Volume 96.6 fL (80.0-100.0); Mean Corpuscular HGB Conc 32.9 g/dL (31.0-36.0); Mean Platelet Volume 12.1 fL (7.4-10.4); Platelet Count 81 K/mcL (140-440); RBC 3.27 M/mcL (4.63-6.08); Red Cell Distribution Width 16.9 % (11.5-14.5); WBC 11.7 K/mcL (4.5-11.0)
[2021-06-03 06:55] LABS: Anisocytosis 1+ (None Seen); Band Neutrophils % 34 % (0-10); Lymphocytes % 2 % (15-49); Monocytes % (Manual) 3 % (1-12); Platelet Estimate DECREASED (Normal); RBC Fragments RARE (None Seen); RBC Morphology ABNORMAL (Normal); Segmented Neutrophils % 61 % (38-78)
--- NOTE | 2021-06-03 07:29 | Nephrology Progress Note ---
SUBJECTIVE Subjective Patient information: Note initiated : 06/03/21 at 7:28 am Patient: Antoine Haney 76 y/o M admitted on 06/02/21 for sob. Chief Complaint: Weakness Pertinent ROS: Weakness BIPAP off this morning Constitutional Vitals: Vital Signs Temp Pulse Resp BP Pulse Ox 98.9 F 93 H 14 121/60 97 06/03/21 04:01 06/03/21 05:00 06/03/21 05:00 06/03/21 04:01 06/03/21 05:00 Period Temp Pulse Resp BP Sys/Millan Pulse Ox Last 24 Hr 96.8 F-98.9 F 86-125 13-38 88-161/47-119 85-100 Intake and Output 06/02/21 06/03/21 06/03/21 21:59 05:59 13:59 Intake Total 260 Output Total 572 Balance -312 Weight 147 lb 8 oz Intake & Output: Intake & Output 06/02/21 06/03/21 06/03/21 21:59 05:59 13:59 Intake Total 260 Output Total 572 Balance -312 Weight 147 lb 8 oz Intake: IV 260 Sodium Chloride 0.9% 250 ml @ 7 20 mls/hr IV .[id number] [facility] Rx#: [id number] Vancomycin 1,000 mg In Sodium 250 Chloride 0.9% 250 ml @ 250 mls/ hr IV ONCE ONE Rx#:[id number] Vasostrict 20 Unit In Dextrose 3 5% in Water 99 ml @ 0.03 UNIT/ MIN 9 mls/hr IV Q17H [facility] Rx#: [id number] Output: Urine Catheter Amount 250 Hemodialysis UF 322 Other: Urine Appearance Cloudy Uretheral ([place]) Cloudy Urine Color Tea Colored Uretheral ([place]) Tea Colored Stool Size Small Stool Consistency Dry and Hard Formed General appearance: cooperative and no acute distress Head Head exam: Present normal inspection Eye Eye exam: Present normal appearance ENT ENT exam: Present mucous membranes moist Respiratory Respiratory exam: Present rales; Absent respiratory distress Cardiovascular Cardiovascular exam: Present normal rate and rhythm GI/Abdominal GI/Abdominal exam: Present soft; Absent tenderness Extremities Exam Extremities exam: Present pedal edema Neurological Exam Neurological exam: Present alert and oriented X3 Psychiatric Psychiatric exam: Present normal affect and normal mood Skin Skin exam: Present warm; Absent rash A/P Assessment and plan (1) ESRD on hemodialysis: Assessment and plan: Antoine Haney is a 76-year-old male with end stage renal disease on hemodialysis, chronic systolic heart failure (Echo on 07/10/20: LVEF 25-30%), coronary artery disease s/p stents in 2014 presented to [facility] ED for shortness of breath. In ED, he required BIPAP for hypoxia. Work up was significant for positive influenza A, leukocytosis (17.9), procalcitonin (7.91), BNP (>70,000), CXR (pulmonary edema), metabolic acidosis (19). The patient is being admitted. Nephrology consultation was requested for end stage renal disease. End stage renal disease on hemodialysis on Wednesday, and Wednesday at [facility]. Chronic anemia due to ESRD. Acute on chronic systolic heart failure (Echo on 07/10/20: LVEF 25-30%) with fluid overload and suspected pulmonary edema. Acute hypoxic respiratory failure due to influenza A and pulmonary edema. Progress: Hemodialysis on 06/02/21 for 1 hour 15 minutes with 300 ml UF, terminated early due to infiltration. I/O: -0.5 kg since admit. Recommendations/Plan: Hemodialysis today. The patient is seen and evaluated during dialysis. He is tolerating so far without IV pressors. Next dialysis on . Status: Chronic Time Spent With Patient Time: Total time spent is greater than 50% in coordination of care (as documented) at patient's floor/unit and/or counseling patient:
[2021-06-03] MEDS ORDERED: VANCOMYCIN PER PHARMACY IV SCH (07:30)
--- NOTE | 2021-06-03 07:33 | Internal Med Progress Note ---
SUBJECTIVE Subjective Patient information: Note initiated : 06/03/21 at 7:32 am Service Date, if different from initiated Date: [] Patient: Antoine Haney 76 y/o M admitted on 06/02/21 for sob. Chief Complaint: [] Interval history: Mr. Haney is a 76 year old male with a extensive medical history consisting of hypertension, hyperlipidemia, coronary artery disease status post remote stents, heart failure with reduced ejection fraction with LVEF 25 to 30%, ESRD on hemodialysis, chronic bilateral hydronephrosis, history of stroke, history of r ight total hip arthroplasty, wheelchair-bound status who lives in an assisted living facility and recently has experienced a general decline in health who presented to the emergency department on 06/02/2021 for shortness of breath. In the emergency department, the patient was found to be hypoxic and started on BiPAP. Work-up included routine blood work that showed a leukocytosis, left shift, lactic acid of 3.5 concerning for sepsis. In addition, the patient had elevated LFTs showing AST markedly greater than ALT, AST 1285 versus ALT 268, and normal bilirubin and mildly elevated alkaline phosphatase. Creatinine kinase was mildly elevated at 435. EKG showed a left bundle branch block which is chronic, troponin T was elevated at 0.1 (normal less than 0.03). NT proBNP was greater than 70,000. In the ED, the patient received an IV fluid bolus with normal saline followed by Lasix 80 mg IV once. Repeat lactic acid improved to 2.0. D-dimer was elevated at 3.17. A chest x-ray showed stable cardiomegaly, nonspecific alveolar opacity in both lungs that could be due to congestive heart failure with pulmonary edema or pneumonia. Right upper quadrant abdominal ultrasound showed a normal liver and gallbladder, chronic bilateral hydronephrosis. Jessica testing was positive for influenza A, negative for influenza B and SARS-CoV-2. Hospital medicine was consulted for admission. Patient was seen in the ED, he was on BiPAP and unable to provide a history due to lethargy. Review of the patient's recent past medical records at [facility] indicate that he was seen in the ED after a fall in May 2021. The patient had a pelvis CT done which showed malunion of an old right hip fracture transfixed by 3 screws, there was marked erosion of the superior femoral head and neck with the 2 most superior screws projecting through the cortex into the joint space. A large effusion was noted with chronic erosion of the bony acetabulum suspicious for septic arthritis complicated by osteomyelitis. Radiology performed a arthrocentesis under fluoroscopy draining 10 cc of sanguinous fluid. Gram stain of the synovial fluid showed rare gram- positive cocci, the culture did not grow any organisms. Case management was consulted to help with acquiring prior CODE STATUS and identifying a substitute decision-maker. The patient's ex-, Katie Haney was identified as his power of senior trial attorney, she was contacted and said that his code status should be full code. 06/03 The patient is more alert today, following commands. 2 out of 2 sets of blood cultures reported growing gram-negative bacilli. It appears that 1 out of 2 blood culture results are also growing gram-positive cocci, unclear if this is a skin contaminant or represents a gram-positive bacteremia as well. CTA of the chest did not show any evidence of PE, there was pneumonia superimposed on emphysema. CT abdomen pelvis showed severe hydronephrosis bilaterally and by basilar pneumonia as well as fecal impaction. Discussed MRI of right hip with radiology, unlikely to provide useful information given the probable artifact from hardware. Discussed the patient with Dr. Wade and orthopedic surgery, he agreed to consult on the patient for the right hip concerns. Overnight the patient's troponin trend has been stable. WBC decreased from 17.9 to 11.7, platelets decreased from 100 to 81, elevated AST and ALT improving. Physical exam General: Chronically ill-appearing male on nasal cannula oxygen in no apparent distress. Head: Atraumatic, normal inspection. Eyes: normal appearance, no scleral icterus. Neck: full ROM Respiratory: On nasal cannula oxygen, does not appear to be in respiratory distress. Cardiovascular: Normal rate and rhythm, S1, S2. GI/Abdominal: soft, nontender, no guarding. : Kenney catheter present Extremities: full range of motion, nontender. Neurological: CN II-XII intact, intact motor, intact sensation. Psychiatric: No anxiety, no agitation. Skin: Extremities cool to touch. Constitutional Vitals: Vital Signs Temp Pulse Resp BP Pulse Ox 98.9 F 93 H 14 121/60 97 06/03/21 04:01 06/03/21 05:00 06/03/21 05:00 06/03/21 04:01 06/03/21 05:00 Period Temp Pulse Resp BP Sys/Millan Pulse Ox Last 24 Hr 96.8 F-98.9 F 86-125 13-38 88-161/47-119 85-100 Intake and Output 06/02/21 06/03/21 06/03/21 21:59 05:59 13:59 Intake Total 260 Output Total 572 Balance -312 Weight 66.905 kg Intake & Output: Intake & Output 06/02/21 06/03/21 06/03/21 21:59 05:59 13:59 Intake Total 260 Output Total 572 Balance -312 Weight 66.905 kg Intake: IV 260 Sodium Chloride 0.9% 250 ml @ 7 20 mls/hr IV .[id number] ANA ROSA Rx#: [id number] Vancomycin 1,000 mg In Sodium 250 Chloride 0.9% 250 ml @ 250 mls/ hr IV ONCE ONE Rx#:[id number] Vasostrict 20 Unit In Dextrose 3 5% in Water 99 ml @ 0.03 UNIT/ MIN 9 mls/hr IV Q17H ANA ROSA Rx#: [id number] Output: Urine Catheter Amount 250 Hemodialysis UF 322 Other: Urine Appearance Cloudy Uretheral (Kenney) Cloudy Urine Color Tea Colored Uretheral (Kenney) Tea Colored Stool Size Small Stool Consistency Dry and Hard Formed OBJ DATA Labs CBC & Chem 7: 06/03/21 04:36 06/03/21 04:36 Labs: Abnormal Lab Results 06/03/21 06/03/21 06/02/21 04:36 04:36 22:02 WBC 11.7 H RBC 3.27 L Hgb 10.4 L Hct 31.6 L RDW 16.9 H Plt Count 81 L MPV 12.1 H Neut % (Auto) Lymph % (Auto) Lymph # (Auto) Band Neutrophils % 34 H Lymphocytes % 2 L Absolute Neutrophils Platelet Estimate Decreased A RBC Morphology Abnormal A Anisocytosis 1+ A RBC Fragments Rare A D-Dimer POC VBG pCO2 at Temp POC VBG pO2 POC Venous O2 Sat Chloride 94 L Carbon Dioxide Anion Gap BUN 34 H Creatinine 4.1 H POC Venous Lactate Direct Bilirubin 0.8 H AST 405 H ALT 150 H Alkaline Phosphatase Lactate Dehydrogenase 328 H Total Creatine Kinase Troponin T 0.10 H* C-Reactive Protein NT-Pro-B Natriuret Pep Total Protein 5.8 L Albumin 2.3 L Globulin Albumin/Globulin Ratio 0.7 L Procalcitonin Urine Appearance Urine Protein Urine Occult Blood Ur Leukocyte Esterase Urine RBC Urine WBC 06/02/21 06/02/21 06/02/21 16:28 16:28 13:18 WBC RBC Hgb Hct RDW Plt Count MPV Neut % (Auto) Lymph % (Auto) Lymph # (Auto) Band Neutrophils % Lymphocytes % Absolute Neutrophils Platelet Estimate RBC Morphology Anisocytosis RBC Fragments D-Dimer POC VBG pCO2 at Temp POC VBG pO2 POC Venous O2 Sat Chloride 91 L Carbon Dioxide Anion Gap 20.0 H BUN 42 H Creatinine 5.0 H* POC Venous Lactate Direct Bilirubin 0.7 H AST 745 H ALT 210 H Alkaline Phosphatase 118 H Lactate Dehydrogenase 488 H Total Creatine Kinase Troponin T 0.11 H* C-Reactive Protein 23.40 H NT-Pro-B Natriuret Pep Total Protein Albumin 3.1 L Globulin Albumin/Globulin Ratio 0.8 L Procalcitonin Urine Appearance Urine Protein Urine Occult Blood Ur Leukocyte Esterase Urine RBC Urine WBC 06/02/21 06/02/21 06/02/21 13:18 13:18 13:17 WBC RBC Hgb Hct RDW Plt Count MPV Neut % (Auto) Lymph % (Auto) Lymph # (Auto) Band Neutrophils % Lymphocytes % Absolute Neutrophils Platelet Estimate RBC Morphology Anisocytosis RBC Fragments D-Dimer POC VBG pCO2 at Temp POC VBG pO2 POC Venous O2 Sat Chloride Carbon Dioxide Anion Gap BUN Creatinine POC Venous Lactate Direct Bilirubin AST ALT Alkaline Phosphatase Lactate Dehydrogenase Total Creatine Kinase 435 H Troponin T 0.10 H* C-Reactive Protein NT-Pro-B Natriuret Pep Total Protein Albumin Globulin Albumin/Globulin Ratio Procalcitonin 7.91 H Urine Appearance Urine Protein Urine Occult Blood Ur Leukocyte Esterase Urine RBC Urine WBC 06/02/21 06/02/21 06/02/21 07:38 07:30 06:50 WBC RBC Hgb Hct RDW Plt Count MPV Neut % (Auto) Lymph % (Auto) Lymph # (Auto) Band Neutrophils % Lymphocytes % Absolute Neutrophils Platelet Estimate RBC Morphology Anisocytosis RBC Fragments D-Dimer POC VBG pCO2 at Temp 40.1 L POC VBG pO2 47 H POC Venous O2 Sat 82.0 H Chloride Carbon Dioxide Anion Gap BUN Creatinine POC Venous Lactate 3.5 H Direct Bilirubin AST ALT Alkaline Phosphatase Lactate Dehydrogenase Total Creatine Kinase Troponin T C-Reactive Protein NT-Pro-B Natriuret Pep > 00277.0 H Total Protein Albumin Globulin Albumin/Globulin Ratio Procalcitonin Urine Appearance Cloudy A Urine Protein 100 A Urine Occult Blood >=1.0 A Ur Leukocyte Esterase 250 A Urine RBC > 182 H Urine WBC 68 H 06/02/21 06/02/21 06/02/21 06:50 06:50 06:50 WBC 17.9 H RBC 3.28 L Hgb 10.7 L Hct 32.3 L RDW 17.0 H Plt Count 109 L MPV 12.2 H Neut % (Auto) 94.8 H Lymph % (Auto) 2.4 L Lymph # (Auto) 0.43 L Band Neutrophils % Lymphocytes % Absolute Neutrophils 16.96 H Platelet Estimate RBC Morphology Anisocytosis RBC Fragments D-Dimer 3.17 H POC VBG pCO2 at Temp POC VBG pO2 POC Venous O2 Sat Chloride 90 L Carbon Dioxide 19 L Anion Gap 24.0 H BUN 35 H Creatinine 4.6 H POC Venous Lactate Direct Bilirubin AST 1285 H ALT 268 H Alkaline Phosphatase 130 H Lactate Dehydrogenase Total Creatine Kinase Troponin T C-Reactive Protein NT-Pro-B Natriuret Pep Total Protein Albumin Globulin 3.8 H Albumin/Globulin Ratio 0.9 L Procalcitonin Urine Appearance Urine Protein Urine Occult Blood Ur Leukocyte Esterase Urine RBC Urine WBC Meds: Medications Albuterol Sulfate (Albuterol Sulfate 2.5 Mg/3 Ml Nebulizer) 2.5 mg NEB Q2HP PRN PRN Reason: Shortness Of Breath Albuterol/Ipratropium (Ipratropium/Albuterol 3 Ml Ampul.Neb) 3 ml NEB Q4HRT [facility] Last Admin: 06/03/21 04:13 Dose: 3 ml Documented by: Aspirin (Aspirin 81 Mg Tab.Chew) 81 mg PO DAILY [facility] Atorvastatin Calcium (Atorvastatin 40 Mg Tablet) 40 mg PO DAILY [facility] Docusate Sodium (Docusate Sodium 100 Mg Capsule) 100 mg PO BID [facility] Last Admin: 06/02/21 21:20 Dose: Not Given Documented by: Heparin Sodium (Porcine) (Heparin 5,000 Unit/Ml Vial) 5,000 unit SQ Q12 [facility] Last Admin: 06/02/21 22:08 Dose: 5,000 unit Documented by: Ceftriaxone Sodium 2 gm/ (Dextrose) 50 mls @ 100 mls/hr IV Q24H [facility]; Protocol Stop: 06/06/21 09:29 Azithromycin 500 mg/ Dextrose 250 mls @ 250 mls/hr IV Q24H ANA ROSA; Protocol Stop: 06/04/21 10:59 Vasopressin 20 unit/ Dextrose 100 mls @ 9 mls/hr IV Q17H ANA ROSA; Protocol Last Titration: 06/02/21 22:06 Dose: 0 unit/min, 0 mls/hr Documented by: Sodium Chloride (Sodium Chloride 0.9%) 250 mls @ 20 mls/hr IV .[id number] [facility] Last Infusion: 06/02/21 22:06 Dose: 0 mls/hr Documented by: Lactulose (Lactulose 20 Gm/30 Ml Oral.[place]) 10 gm PO DAILYP PRN PRN Reason: Constipation Methylprednisolone Sodium Succinate (Methylprednisolone Sod Succ 40 Mg/Ml Vial) 40 mg IV Q12 [facility] Last Admin: 06/02/21 23:42 Dose: 40 mg Documented by: Ondansetron HCl (Ondansetron 4 Mg/2 Ml Vial) 4 mg IV Q4HP PRN; Protocol PRN Reason: Nausea And Vomiting Oseltamivir Phosphate (Oseltamivir Phosphate 30 Mg Capsule) 30 mg PO DAILY ANA ROSA Stop: 06/08/21 08:59 Senna (Sennosides 1 Tablet) 2 tab PO HSP PRN PRN Reason: Constipation Sodium Chloride (0.9 % Sodium Chloride 10 Ml Syringe) 10 ml IV Q8 [facility] Last Admin: 06/03/21 05:41 Dose: 10 ml Documented by: Vancomycin HCl (Vancomycin Per Pharmacy) 1 order IV UD [facility]; Protocol A/P Narrative A/P Narrative: Assessment: 76 year old male with a extensive medical history consisting of hypertension, hyperlipidemia, coronary artery disease status post remote stents, heart failure with reduced ejection fraction with LVEF 25 to 30%, ESRD on hemodialysis, chronic bilateral hydronephrosis, history of stroke, history of right total hip arthroplasty, wheelchair-bound status who lives in an assisted living facility and recently has experienced a general decline in health who presented to the emergency department on 06/02/2021 for shortness of breath. Patient was found to have acute hypoxic respiratory failure, appeared to be septic and tested positive for influenza A and there is concern the patient may have a community-acquired pneumonia or other underlying bacterial infection as he was septic on presentation to the ED. patient was started on broad-spectrum antibiotics, blood cultures grew 2 out of 2 gram-negative bacilli and 1 out of 2 gram-positive cocci. Patient's respiratory failure improved significantly after admission, the cause of gram-negative bacteremia is not clear but suspected to be due to a pyelonephritis. CT abdomen pelvis with contrast did not reveal any source of gram-negative bacteremia, positive for bibasilar pneumonia. A CTA of the patient's chest did also showed pneumonia, emphysem atous changes, did not show a PE. There is also concern the patient may have a chronic right hip prosthetic joint infection. 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 -Vancomycin IV for possible right hip infection, positive culture for gram- positive cocci. -Renally dosed Tamiflu 30 mg after every hemodialysis session for at least 5 days. -Oxygen supplementation, wean as able with goal sats 88 to 92% for COPD. -Follow urine and all blood culture results. -Solu-Medrol IV twice daily for possible COPD exacerbation. -Scheduled duo nebs and as needed albuterol nebs. -Aspirin and Atorvastatin for CAD. -Home medication reconciliation, resume important meds. -N.p.o. for now pending speech evaluation. -Orthopedic surgery to evaluate right hip issues. -Nephrology consult for ESRD managed with hemodialysis. -PT, OT and speech therapy. -rug dyer helper. -Katie Haney [phone] is the patient's ex- and POA. -DVT prophylaxis: Heparin SQ, monitor platelets and discontinue heparin if platelets continue to trend down. -Code status: Full -Disposition: Probably SNF. Time Spent With Patient Time: Total time spent is greater than 50% in coordination of care (as documented) at patient's floor/unit and/or counseling patient: QUALITY Stroke Symptom Onset Unknown: No
--- NOTE | 2021-06-03 07:57 | EKG ---
[facility] Test Date: 2021-06-02 Pat Name: Antoine Haney Department: ED Room: Gender: Male Stamp Classifier: SB : [id number] Requested By: Enoc Valencia Order Number: [id number] Reading MD: Andrew Vang Measurements Intervals [place] Rate: 118 P: 65 [place]: 145 QRS: -34 QRSD: 152 T: 153 QT: 347 QTc: 487 Interpretive Statements Sinus tachycardia Left bundle branch block Electronically Signed On 06-03-2021 7:57:30 PDT by Andrew Vang /store/M0/[id number]
[2021-06-03] MEDS ORDERED: OSELTAMIVIR PHOSPHATE 30 MG CAPSULE PO SCH ×2 (09:00→21:00)
--- NOTE | 2021-06-03 09:42 | Cat Scan Report ---
History: Short of breath, Pulmonary infiltrates seen on recent chest x-ray, evaluate for pulmonary emboli and pneumonia TECHNIQUE: Following injection of intravenous nonionic contrast the chest was imaged during the pulmonary arterial phase. Sagittal, coronal and axial MIPS images were created. The radiation exposure was limited using dose reduction technology. FINDINGS: The pulmonary arteries are normal without evidence of pulmonary emboli. The aorta is normal in caliber. There are multiple plaques along the wall of the aorta. There is also a large amount calcified plaque in the coronary arteries. The heart is mildly enlarged with a mildly dilated left ventricle. There is moderate centrilobular emphysema in both lungs with the greatest involvement in the upper lobes. There is a patchy distribution of small consolidating infiltrates in both lungs. The greatest involvement is in the lung bases, right worse than left. No pulmonary mass is detected. There is no pleural effusion. No abnormally enlarged lymph nodes are present. The trachea and central bronchi appear normal. Spine has a mild kyphoscoliotic curvature along with mild arthritis. IMPRESSION: Pneumonia superimposed upon emphysema No evidence pulmonary emboli Atherosclerotic coronary artery disease Interpreted and Authenticated by: Mehrdad Mc 06/03/21
--- NOTE | 2021-06-03 09:55 | Cat Scan Report ---
History: Gram-negative bacteremia, shortness of breath, suspect pyelonephritis, dialysis patient TECHNIQUE: Following injection of 70 cc of Isovue-370 contrast the patient was imaged during the portal venous phase from above the diaphragm through the symphysis pubis. Sagittal and coronal reformats were created. Delayed images of the upper abdomen were also acquired. The radiation exposure was limited using dose reduction technology. FINDINGS: There are are patchy alveolar infiltrates posteriorly in both lower lobes, right worse than left. Patient has underlying mild emphysema. No pleural effusion is present. The heart is mildly enlarged. Moderate amount of calcified plaque is present in the coronary arteries. The liver is normal in size. There is mild fatty infiltration. There is no evidence of a liver mass. The spleen is normal in size and homogeneous. The gallbladder and bile ducts are normal. No abnormality seen within the pancreas. The adrenals are normal and symmetric. Severe hydronephrosis is present in both kidneys. There is also severe loss of renal parenchyma bilaterally with thinning of the cortex. There stranding of the perirenal fat on each side. No stone is seen in either kidney. There is transition to normal caliber ureter at the UPJ bilaterally. Both ureters are decompressed. Urinary bladder is decompressed by Kenney catheter. Severe atherosclerotic disease is present throughout the abdominal aorta and iliac arteries. There is mild ectasia of the distal abdominal aorta. The graft the stomach is decompressed. Small intestine is normal in caliber. Moderate amount of stool is present throughout the large intestine. There is significant fecal impaction in the rectum. The rectum measures up to 7 cm transverse dimension. There are old fractures in the inferior pubic rami bilaterally, left transverse process of L5 and left side of the sacrum. There is also an old fracture of the right femoral head and neck. There are pins in the femoral neck and head and partial collapse of the femoral head. There is a moderate size joint effusion in the right hip. IMPRESSION: Severe hydronephrosis bilaterally with loss of renal parenchyma. This has improved since the prior CT done on 05/26/21 bibasilar pneumonia Fecal impaction Interpreted and Authenticated by: Mehrdad Mc 06/03/21
[2021-06-03] MEDS ORDERED: AZITHROMYCIN 500 MG in DEXTROSE 5% IN WATER 250 ML IV SCH (10:00)
[2021-06-03] MEDS ORDERED: VASOPRESSIN 20 UNIT in DEXTROSE 5% IN WATER 99 ML IV PRN (10:00)
[2021-06-03] MEDS: HEPARIN 5,000 UNIT/ML VIAL SQ SCH ×2 (10:03→21:15)
[2021-06-03] MEDS: cefTRIAXone 2 GM in DEXTROSE 5% IN WATER 50 ML IV SCH (10:06)
[2021-06-03] MEDS: methylPREDNISolone SOD SUCC 40 MG/ML VIAL IV SCH ×2 (10:43→20:52)
[2021-06-03] MEDS: ATORVASTATIN 40 MG TABLET PO SCH (12:07)
[2021-06-03] MEDS: 0.9 % SODIUM CHLORIDE 250 ML IV SCH (12:38)
[2021-06-03] MEDS: DOCUSATE SODIUM 100 MG CAPSULE PO SCH ×2 (12:52→21:15)
[2021-06-03] MEDS: ASPIRIN 81 MG TAB.CHEW PO SCH (16:05)
[2021-06-03] MEDS ORDERED: clonazePAM 0.5 MG TABLET PO PRN (19:31)
[2021-06-03] MEDS ORDERED: VANCOMYCIN 1,000 MG in 0.9 % SODIUM CHLORIDE 250 ML IV ONE ×2 (20:15)
[2021-06-03] MEDS: NICOTINE 14 MG PATCH TOPICAL SCH ×2 (20:52→22:15)
[2021-06-03] MEDS: HYDROCODONE/APAP 7.5/325MG TABLET PO PRN (21:13)
[2021-06-04] MEDS: 0.9 % SODIUM CHLORIDE 250 ML IV SCH ×2 (02:05→12:23)
[2021-06-04] MEDS: IPRATROPIUM/ALBUTEROL 3 ML AMPUL.NEB NEB SCH ×4 (02:07→19:10)
[2021-06-04] MEDS: 0.9 % SODIUM CHLORIDE 10 ML SYRINGE IV SCH ×3 (06:10→21:17)
[2021-06-04 06:36] LABS: Hematocrit 30.2 % (40.1-51.0); Mean Cell Volume 95.9 fL (80.0-100.0); Mean Corpuscular HGB Conc 33.1 g/dL (31.0-36.0); Mean Platelet Volume 12.7 fL (7.4-10.4); Platelet Count 90 K/mcL (140-440); RBC 3.15 M/mcL (4.63-6.08); Red Cell Distribution Width 16.8 % (11.5-14.5); WBC 12.4 K/mcL (4.5-11.0)
[2021-06-04 07:07] LABS: ALT/SGPT 156 U/L (<40); AST/SGOT 292 U/L (<40); Albumin 2.8 gm/dL (3.2-5.2); Albumin/Globulin Ratio 0.8 (1.0-2.3); Alkaline Phosphatase 114 U/L (39-117); Bilirubin,Direct 0.7 mg/dL (<0.3); Bilirubin,Total 0.9 mg/dL (0.1-1.0); Blood Urea Nitrogen 23 mg/dL (8-23); Carbon Dioxide 24 mmol/L (22-30); Chloride 94 mmol/L (96-108); Globulin 3.4 gm/dL (2.2-3.7); Glomerular Filtration Rate 19; Glucose 100 mg/dL (70-105); Lactate Dehydrogenase 354 U/L (135-225); Phosphorous 2.6 mg/dL (2.5-4.5); Triglycerides 110 mg/dL (<150)
--- NOTE | 2021-06-04 07:39 | Nephrology Progress Note ---
SUBJECTIVE Subjective Patient information: Note initiated : 06/04/21 at 7:38 am Patient: Antoine Haney 76 y/o M admitted on 06/02/21 for sob. Chief Complaint: Shortness of breath Pertinent ROS: Feels better Weakness Constitutional Vitals: Vital Signs Temp Pulse Resp BP Pulse Ox 96.6 F L 90 14 113/56 93 06/04/21 04:01 06/04/21 06:06 06/04/21 06:06 06/04/21 06:01 06/04/21 06:06 Period Temp Pulse Resp BP Sys/Millan Pulse Ox Last 24 Hr 96.3 F-97.5 F 89-113 13-30 79-143/48-118 89-100 Intake and Output 06/03/21 06/04/21 06/04/21 21:59 05:59 13:59 Intake Total 250 650 Output Total 2425 25 Balance -2175 625 Weight 142 lb Intake & Output: Intake & Output 06/03/21 06/04/21 06/04/21 21:59 05:59 13:59 Intake Total 250 650 Output Total 2425 25 Balance -2175 625 Weight 142 lb Intake: IV 250 Vancomycin 1,000 mg In Sodium 250 Chloride 0.9% 250 ml @ 250 mls/ hr IV ONCE ONE Rx#:[id number] Oral 250 400 Output: Urine Catheter Amount 25 25 Hemodialysis UF 2400 Other: Urine Color Dark Yellow Dark Yellow General appearance: cooperative and no acute distress Head Head exam: Present normal inspection Eye Eye exam: Present normal appearance ENT ENT exam: Present mucous membranes moist Respiratory Respiratory exam: Absent respiratory distress Cardiovascular Cardiovascular exam: Present normal rate and rhythm GI/Abdominal GI/Abdominal exam: Present soft; Absent tenderness Extremities Exam Extremities exam: Absent joint swelling or pedal edema Neurological Exam Neurological exam: Present alert and oriented X3 Psychiatric Psychiatric exam: Present normal affect and normal mood Skin Skin exam: Present warm; Absent rash A/P Assessment and plan (1) ESRD on hemodialysis: Assessment and plan: Antoine Haney is a 76-year-old male with end stage renal disease on hemodialysis, chronic systolic heart failure (Echo on 07/10/20: LVEF 25-30%), coronary artery disease s/p stents in 2014 presented to [facility] ED for shortness of breath. In ED, he required BIPAP for hypoxia. Work up was significant for positive influenza A, leukocytosis (17.9), procalcitonin (7.91), BNP (>70,000), CXR (pulmonary edema), metabolic acidosis (19). The patient is being admitted. Nephrology consultation was requested for end stage renal disease. End stage renal disease on hemodialysis on Wednesday, and Wednesday at [facility]. Chronic anemia due to ESRD. Acute on chronic systolic heart failure (Echo on 07/10/20: LVEF 25-30%) with fluid overload and suspected pulmonary edema, improved. Acute hypoxic respiratory failure due to influenza A and pulmonary edema and sepsis, improved. Sepsis with Staph aureus and E coli bacteremia, suspected infection of right hip. Progress: Hemodialysis on 06/02/21 for 1 hour 15 minutes with 300 ml UF, terminated early due to infiltration. Hemodialysis on 06/03/21 for 3 hours with 2,400 ml UF. I/O: -2 kg since admit. Recommendations/Plan: Hemodialysis tomorrow. Status: Chronic Time Spent With Patient Time: Total time spent is greater than 50% in coordination of care (as documented) at patient's floor/unit and/or counseling patient:
[2021-06-04 08:07] LABS: Anisocytosis 1+ (None Seen); Lymphocytes % 3 % (15-49); Monocytes % (Manual) 3 % (1-12); Platelet Estimate DECREASED (Normal); Polychromasia OCC (None Seen); RBC Fragments FEW (None Seen); RBC Morphology ABNORMAL (Normal); Segmented Neutrophils % 94 % (38-78); Toxic Granulation OCC (None Seen)
[2021-06-04] MEDS: ATORVASTATIN 40 MG TABLET PO SCH (08:35)
[2021-06-04] MEDS: methylPREDNISolone SOD SUCC 40 MG/ML VIAL IV SCH ×2 (08:35→21:17)
[2021-06-04] MEDS: ASPIRIN 81 MG TAB.CHEW PO SCH (08:35)
[2021-06-04] MEDS: cefTRIAXone 2 GM in DEXTROSE 5% IN WATER 50 ML IV SCH (08:35)
[2021-06-04] MEDS: DOCUSATE SODIUM 100 MG CAPSULE PO SCH ×2 (10:26→21:16)
--- NOTE | 2021-06-04 10:38 | Internal Med Progress Note ---
SUBJECTIVE Subjective Patient information: Note initiated : 06/04/21 at 10:27 am Service Date, if different from initiated Date: [] Patient: Antoine Haney 76 y/o M admitted on 06/02/21 for sob. Chief Complaint: [] Interval history: Mr. Haney is a 76 year old male with a extensive medical history consisting of hypertension, hyperlipidemia, coronary artery disease status post remote stents, heart failure with reduced ejection fraction with LVEF 25 to 30%, ESRD on hemodialysis, chronic bilateral hydronephrosis, history of stroke, history of right total hip arthroplasty, wheelchair-bound status who lives in an assisted living facility and recently has experienced a general decline in health who presented to the emergency department on 06/02/2021 for shortness of breath. In the emergency department, the patient was found to be hypoxic and started on BiPAP. Work-up included routine blood work that showed a leukocytosis, left shift, lactic acid of 3.5 concerning for sepsis. In addition, the patient had elevated LFTs showing AST markedly greater than ALT, AST 1285 versus ALT 268, and normal bilirubin and mildly elevated alkaline phosphatase. Creatinine kinase was mildly elevated at 435. EKG showed a left bundle branch block which is chronic, troponin T was elevated at 0.1 (normal less than 0.03). NT proBNP was greater than 70,000. In the ED, the patient received an IV fluid bolus with normal saline followed by Lasix 80 mg IV once. Repeat lactic acid improved to 2.0. D-dimer was elevated at 3.17. A chest x-ray showed stable cardiomegaly, nonspecific alveolar opacity in both lungs that could be due to congestive heart failure with pulmonary edema or pneumonia. Right upper quadrant abdominal ultrasound showed a normal liver and gallbladder, chronic bilateral hydronephrosis. Jessica testing was positive for influenza A, negative for influenza B and SARS-CoV-2. Hospital medicine was consulted for admission. Patient was seen in the ED, he was on BiPAP and unable to provide a history due to lethargy. Review of the patient's recent past medical records at [facility] indicate that he was seen in the ED after a fall in May 2021. The patient had a pelvis CT done which showed malunion of an old right hip fracture transfixed by 3 screws, there was marked erosion of the superior femoral head and neck with the 2 most superior screws projecting through the cortex into the joint space. A large effusion was noted with chronic erosion of the bony acetabulum suspicious for septic arthritis complicated by osteomyelitis. Radiology performed a arthrocentesis under fluoroscopy draining 10 cc of sanguinous fluid. Gram stain of the synovial fluid showed rare gram- positive cocci, the culture did not grow any organisms. Case management was consulted to help with acquiring prior CODE STATUS and identifying a substitute decision-maker. The patient's ex-, Katie Haney was identified as his power of criminal attorney, she was contacted and said that his code status should be full code. 06/03 The patient is more alert today, following commands. 2 out of 2 sets of blood cultures reported growing gram-negative bacilli. It appears that 1 out of 2 blood culture results are also growing gram-positive cocci, unclear if this is a skin contaminant or represents a gram-positive bacteremia as well. CTA of the chest did not show any evidence of PE, there was pneumonia superimposed on emphysema. CT abdomen pelvis showed severe hydronephrosis bilaterally and by basilar pneumonia as well as fecal impaction. Discussed MRI of right hip with radiology, unlikely to provide useful information given the probable artifact from hardware. Discussed the patient with Dr. Wade and orthopedic surgery, he agreed to consult on the patient for the right hip concerns. Overnight the patient's troponin trend has been stable. WBC decreased from 17.9 to 11.7, platelets decreased from 100 to 81, elevated AST and ALT improving. 06/04-patient seen in room. Intermittently confused. However off BiPAP and now on 2 L oxygen. On Tamiflu during dialysis. Continue Rocephin/vancomycin. Additional blood cultures positive for gram-positive cocci. Surface cultures pending. Echocardiogram ordered. Case discussed with Dr. Wade orthopedic was reviewed total cell count from May 06 hip aspirate with less than 10,000 WBCs. At this time orthopedic felt it is unlikely septic arthritis and recommends continuing to follow and and evaluate pain while weightbearing. Constitutional Vitals: Vital Signs Temp Pulse Resp BP Pulse Ox 98.1 F 90 15 130/64 96 06/04/21 08:01 06/04/21 09:11 06/04/21 09:11 06/04/21 08:01 06/04/21 09:11 Period Temp Pulse Resp BP Sys/Millan Pulse Ox Last 24 Hr 96.3 F-98.1 F 89-113 13-30 79-141/48-118 89-100 Intake and Output 06/03/21 06/04/21 06/04/21 21:59 05:59 13:59 Intake Total 250 650 0 Output Total 2425 25 Balance -2175 625 0 Weight 64.41 kg Intermittently confused Nonlabored breathing Complains of right groin pain without swelling Left big toe medial aspect scab without fluctuance Intake & Output: Intake & Output 06/03/21 06/04/21 06/04/21 21:59 05:59 13:59 Intake Total 250 650 0 Output Total 2425 25 Balance -2175 625 0 Weight 64.41 kg Intake: IV 250 0 Vancomycin 1,000 mg In Sodium 250 Chloride 0.9% 250 ml @ 250 mls/ hr IV ONCE ONE Rx#:[id number] Vasostrict 20 Unit In Dextrose 0 5% in Water 99 ml @ 0.03 UNIT/ MIN 9 mls/hr IV Q17H ANA ROSA Rx#: [id number] Oral 250 400 Output: Urine Catheter Amount 25 25 Hemodialysis UF 2400 Other: Urine Color Dark Yellow Dark Yellow OBJ DATA Labs CBC & Chem 7: 06/04/21 05:28 06/04/21 05:28 Labs: Abnormal Lab Results 06/04/21 06/04/21 06/03/21 05:28 05:28 10:30 WBC 12.4 H RBC 3.15 L Hgb 10.0 L Hct 30.2 L RDW 16.8 H Plt Count 90 L 90 L MPV 12.7 H Neut % (Auto) Lymph % (Auto) Lymph # (Auto) Seg Neutrophils % 94 H Band Neutrophils % Lymphocytes % 3 L Absolute Neutrophils Toxic Granulation Occ A Platelet Estimate Decreased A RBC Morphology Abnormal A Polychromasia Occ A Anisocytosis 1+ A RBC Fragments Few A D-Dimer POC VBG pCO2 at Temp POC VBG pO2 POC Venous O2 Sat Chloride 94 L Carbon Dioxide Anion Gap 17.0 H BUN Creatinine 3.1 H POC Venous Lactate Direct Bilirubin 0.7 H AST 292 H ALT 156 H Alkaline Phosphatase Lactate Dehydrogenase 354 H Total Creatine Kinase Troponin T C-Reactive Protein NT-Pro-B Natriuret Pep Total Protein Albumin 2.8 L Globulin Albumin/Globulin Ratio 0.8 L Procalcitonin Urine Appearance Urine Protein Urine Occult Blood Ur Leukocyte Esterase Urine RBC Urine WBC 06/03/21 06/03/21 06/02/21 04:36 04:36 22:02 WBC 11.7 H RBC 3.27 L Hgb 10.4 L Hct 31.6 L RDW 16.9 H Plt Count 81 L MPV 12.1 H Neut % (Auto) Lymph % (Auto) Lymph # (Auto) Seg Neutrophils % Band Neutrophils % 34 H Lymphocytes % 2 L Absolute Neutrophils Toxic Granulation Platelet Estimate Decreased A RBC Morphology Abnormal A Polychromasia Anisocytosis 1+ A RBC Fragments Rare A D-Dimer POC VBG pCO2 at Temp POC VBG pO2 POC Venous O2 Sat Chloride 94 L Carbon Dioxide Anion Gap BUN 34 H Creatinine 4.1 H POC Venous Lactate Direct Bilirubin 0.8 H AST 405 H ALT 150 H Alkaline Phosphatase Lactate Dehydrogenase 328 H Total Creatine Kinase Troponin T 0.10 H* C-Reactive Protein NT-Pro-B Natriuret Pep Total Protein 5.8 L Albumin 2.3 L Globulin Albumin/Globulin Ratio 0.7 L Procalcitonin Urine Appearance Urine Protein Urine Occult Blood Ur Leukocyte Esterase Urine RBC Urine WBC 06/02/21 06/02/21 06/02/21 16:28 16:28 13:18 WBC RBC Hgb Hct RDW Plt Count MPV Neut % (Auto) Lymph % (Auto) Lymph # (Auto) Seg Neutrophils % Band Neutrophils % Lymphocytes % Absolute Neutrophils Toxic Granulation Platelet Estimate RBC Morphology Polychromasia Anisocytosis RBC Fragments D-Dimer POC VBG pCO2 at Temp POC VBG pO2 POC Venous O2 Sat Chloride 91 L Carbon Dioxide Anion Gap 20.0 H BUN 42 H Creatinine 5.0 H* POC Venous Lactate Direct Bilirubin 0.7 H AST 745 H ALT 210 H Alkaline Phosphatase 118 H Lactate Dehydrogenase 488 H Total Creatine Kinase Troponin T 0.11 H* C-Reactive Protein 23.40 H NT-Pro-B Natriuret Pep Total Protein Albumin 3.1 L Globulin Albumin/Globulin Ratio 0.8 L Procalcitonin Urine Appearance Urine Protein Urine Occult Blood Ur Leukocyte Esterase Urine RBC Urine WBC 06/02/21 06/02/21 06/02/21 13:18 13:18 13:17 WBC RBC Hgb Hct RDW Plt Count MPV Neut % (Auto) Lymph % (Auto) Lymph # (Auto) Seg Neutrophils % Band Neutrophils % Lymphocytes % Absolute Neutrophils Toxic Granulation Platelet Estimate RBC Morphology Polychromasia Anisocytosis RBC Fragments D-Dimer POC VBG pCO2 at Temp POC VBG pO2 POC Venous O2 Sat Chloride Carbon Dioxide Anion Gap BUN Creatinine POC Venous Lactate Direct Bilirubin AST ALT Alkaline Phosphatase Lactate Dehydrogenase Total Creatine Kinase 435 H Troponin T 0.10 H* C-Reactive Protein NT-Pro-B Natriuret Pep Total Protein Albumin Globulin Albumin/Globulin Ratio Procalcitonin 7.91 H Urine Appearance Urine Protein Urine Occult Blood Ur Leukocyte Esterase Urine RBC Urine WBC 06/02/21 06/02/21 06/02/21 07:38 07:30 06:50 WBC RBC Hgb Hct RDW Plt Count MPV Neut % (Auto) Lymph % (Auto) Lymph # (Auto) Seg Neutrophils % Band Neutrophils % Lymphocytes % Absolute Neutrophils Toxic Granulation Platelet Estimate RBC Morphology Polychromasia Anisocytosis RBC Fragments D-Dimer POC VBG pCO2 at Temp 40.1 L POC VBG pO2 47 H POC Venous O2 Sat 82.0 H Chloride Carbon Dioxide Anion Gap BUN Creatinine POC Venous Lactate 3.5 H Direct Bilirubin AST ALT Alkaline Phosphatase Lactate Dehydrogenase Total Creatine Kinase Troponin T C-Reactive Protein NT-Pro-B Natriuret Pep > 39657.0 H Total Protein Albumin Globulin Albumin/Globulin Ratio Procalcitonin Urine Appearance Cloudy A Urine Protein 100 A Urine Occult Blood >=1.0 A Ur Leukocyte Esterase 250 A Urine RBC > 182 H Urine WBC 68 H 06/02/21 06/02/21 06/02/21 06:50 06:50 06:50 WBC 17.9 H RBC 3.28 L Hgb 10.7 L Hct 32.3 L RDW 17.0 H Plt Count 109 L MPV 12.2 H Neut % (Auto) 94.8 H Lymph % (Auto) 2.4 L Lymph # (Auto) 0.43 L Seg Neutrophils % Band Neutrophils % Lymphocytes % Absolute Neutrophils 16.96 H Toxic Granulation Platelet Estimate RBC Morphology Polychromasia Anisocytosis RBC Fragments D-Dimer 3.17 H POC VBG pCO2 at Temp POC VBG pO2 POC Venous O2 Sat Chloride 90 L Carbon Dioxide 19 L Anion Gap 24.0 H BUN 35 H Creatinine 4.6 H POC Venous Lactate Direct Bilirubin AST 1285 H ALT 268 H Alkaline Phosphatase 130 H Lactate Dehydrogenase Total Creatine Kinase Troponin T C-Reactive Protein NT-Pro-B Natriuret Pep Total Protein Albumin Globulin 3.8 H Albumin/Globulin Ratio 0.9 L Procalcitonin Urine Appearance Urine Protein Urine Occult Blood Ur Leukocyte Esterase Urine RBC Urine WBC Meds: Medications Hydrocodone Bitart/Acetaminophen (Hydrocodone/Apap 7.5/325mg Tablet) 1 tab PO Q8HP PRN PRN Reason: Pain Last Admin: 06/03/21 21:13 Dose: 1 tab Documented by: Albuterol Sulfate (Albuterol Sulfate 2.5 Mg/3 Ml Nebulizer) 2.5 mg NEB Q2HP PRN PRN Reason: Shortness Of Breath Albuterol/Ipratropium (Ipratropium/Albuterol 3 Ml Ampul.Neb) 3 ml NEB Q6HRT [facility] Last Admin: 06/04/21 09:44 Dose: 3 ml Documented by: Aspirin (Aspirin 81 Mg Tab.Chew) 81 mg PO DAILY [facility] Last Admin: 06/04/21 08:35 Dose: 81 mg Documented by: Atorvastatin Calcium (Atorvastatin 40 Mg Tablet) 40 mg PO DAILY [facility] Last Admin: 06/04/21 08:35 Dose: 40 mg Documented by: Clonazepam (Clonazepam 0.5 Mg Tablet) 0.5 mg PO DAILYP PRN PRN Reason: Anxiety Docusate Sodium (Docusate Sodium 100 Mg Capsule) 100 mg PO BID [facility] Last Admin: 06/04/21 10:26 Dose: Not Given Documented by: Heparin Sodium (Porcine) (Heparin 5,000 Unit/Ml Vial) 5,000 unit SQ Q12 [facility] Last Admin: 06/03/21 21:15 Dose: Not Given Documented by: Ceftriaxone Sodium 2 gm/ (Dextrose) 50 mls @ 100 mls/hr IV Q24H [facility]; Protocol Stop: 06/06/21 09:29 Last Admin: 06/04/21 08:35 Dose: 100 mls/hr Documented by: Sodium Chloride (Sodium Chloride 0.9%) 250 mls @ 20 mls/hr IV .[id number] [facility] Last Admin: 06/04/21 02:05 Dose: Not Given Documented by: Vasopressin 20 unit/ Dextrose 100 mls @ 9 mls/hr IV Q12HP PRN; Protocol PRN Reason: Dialysis-related hyoptension Lactulose (Lactulose 20 Gm/30 Ml Oral.[place]) 10 gm PO DAILYP PRN PRN Reason: Constipation Methylprednisolone Sodium Succinate (Methylprednisolone Sod Succ 40 Mg/Ml Vial) 40 mg IV Q12 [facility] Last Admin: 06/04/21 08:35 Dose: 40 mg Documented by: Nicotine (Nicotine 14 Mg Patch) 14 mg TOPICAL DAILY@1000 ANA ROSA Last Admin: 06/03/21 22:15 Dose: Not Given Documented by: Ondansetron HCl (Ondansetron 4 Mg/2 Ml Vial) 4 mg IV Q4HP PRN; Protocol PRN Reason: Nausea And Vomiting Oseltamivir Phosphate (Oseltamivir Phosphate 30 Mg Capsule) 30 mg PO TuThSa@2100 ANA ROSA Stop: 06/07/21 21:01 Last Admin: 06/03/21 20:52 Dose: 30 mg Documented by: Senna (Sennosides 1 Tablet) 2 tab PO HSP PRN PRN Reason: Constipation Sodium Chloride (0.9 % Sodium Chloride 10 Ml Syringe) 10 ml IV Q8 [facility] Last Admin: 06/04/21 06:10 Dose: 10 ml Documented by: Vancomycin HCl (Vancomycin Per Pharmacy) 1 order IV UD [facility]; Protocol A/P Narrative A/P Narrative: Assessment: 76 year old male with a extensive medical history consisting of hypertension, hyperlipidemia, coronary artery disease status post remote stents, heart failure with reduced ejection fraction with LVEF 25 to 30%, ESRD on hemodialysis, chronic bilateral hydronephrosis, history of stroke, history of right total hip arthroplasty, wheelchair-bound status who lives in an assisted living facility and recently has experienced a general decline in health who presented to the emergency department on 06/02/2021 for shortness of breath. Patient was found to have acute hypoxic respiratory failure, appeared to be septic and tested positive for influenza A and there is concern the patient may have a community-acquired pneumonia or other underlying bacterial infection as he was septic on presentation to the ED. patient was started on broad-spectrum antibiotics, blood cultures grew 2 out of 2 gram-negative bacilli and 1 out of 2 gram-positive cocci. Patient's respiratory failure improved significantly after admission, the cause of gram-negative bacteremia is not clear but suspected to be due to a pyelonephritis. CT abdomen pelvis with contrast did not reveal any source of gram-negative bacteremia, positive for bibasilar pneumonia. A CTA of the patient's chest did also showed pneumonia, emphysematous changes, did not show a PE. There is also concern the patient may have a chronic right hip prosthetic joint infection. * Acute respiratory failure with hypoxia secondary to influenza pneumonia/pulmonary edema. Responding to Tamiflu/dialysis and fluid removal. Off BiPAP and now on 2 L oxygen. * Influenza a pneumonia continue antiviral * GNR bacteremia likely secondary to pyelonephritis unclear source currently on Rocephin * GPC bacteremia-unclear source, echocardiogram, surveillance cultures, vancomycin * Elevated troponin secondary to type II SD from sepsis * Severe sepsis secondary to combination of above clinically improved. * History of CAD status post stent/heart failure with reduced EF, continue medical management on aspirin/statin, beta-ap on hold in light of sepsis * Right hip pain,, GPC on gram stain in May 06. Reviewed with orthopedics. Unlikely septic arthritis systolic cell count less than 10,000. Orthopedics recommended following with weightbearing and in consult if persistent pain for any aspiration * ESRD on HD managed per nephrology * HTN meds on hold * Severe deconditioning/weakness and wheelchair-bound status, initiate nutrition support/PT OT once clinically improved Plan * Targeted antibiotic coverage * Surveillance cultures * Echocardiogram * HD per nephrology * Wean oxygen as tolerated * Tamiflu * Orthopedic consult if persistent pain during weightbearing right hip * Katie aHney [phone] is the patient's ex- and POA. \ * Discharge planning likely SNF Time Spent With Patient Time: Total time spent is greater than 50% in coordination of care (as documented) at patient's floor/unit and/or counseling patient: Total time spent with greater than 50% in coordination of care (as documented) at patient's floor/unit and/or counseling patient:: 50 - 70 minutes QUALITY Stroke Symptom Onset Unknown: No
[2021-06-04] MEDS: HEPARIN 5,000 UNIT/ML VIAL SQ SCH ×2 (12:24→21:17)
[2021-06-04] MEDS: NICOTINE 14 MG PATCH TOPICAL SCH (12:25)
[2021-06-04] MEDS: MEROPENEM 0.5 GM in 0.9 % SODIUM CHLORIDE 50 ML IV SCH (15:52)
[2021-06-04] MEDS ORDERED: IPRATROPIUM/ALBUTEROL 3 ML AMPUL.NEB NEB PRN (22:35)
[2021-06-05] MEDS: 0.9 % SODIUM CHLORIDE 250 ML IV SCH ×2 (01:48→13:58)
[2021-06-05] MEDS: HYDROCODONE/APAP 7.5/325MG TABLET PO PRN (04:31)
[2021-06-05] MEDS: 0.9 % SODIUM CHLORIDE 10 ML SYRINGE IV SCH ×2 (06:15→15:37)
[2021-06-05 06:47] LABS: Hemoglobin 10.1 g/dL (13.7-17.5); Mean Cell Volume 96.2 fL (80.0-100.0); Mean Corpuscular HGB Conc 33.7 g/dL (31.0-36.0); Mean Platelet Volume 13.1 fL (7.4-10.4); Platelet Count 71 K/mcL (140-440); RBC 3.12 M/mcL (4.63-6.08); Red Cell Distribution Width 17.2 % (11.5-14.5); WBC 12.5 K/mcL (4.5-11.0)
[2021-06-05 07:11] LABS: ALT/SGPT 131 U/L (<40); AST/SGOT 206 U/L (<40); Albumin 2.9 gm/dL (3.2-5.2); Albumin/Globulin Ratio 0.8 (1.0-2.3); Alkaline Phosphatase 125 U/L (39-117); Bilirubin,Direct 0.5 mg/dL (<0.3); Bilirubin,Total 0.7 mg/dL (0.1-1.0); Blood Urea Nitrogen 37 mg/dL (8-23); Calcium 9.4 mg/dL (8.6-10.4); Carbon Dioxide 22 mmol/L (22-30); Chloride 91 mmol/L (96-108); Globulin 3.6 gm/dL (2.2-3.7); Glomerular Filtration Rate 13; Glucose 92 mg/dL (70-105); Lactate Dehydrogenase 329 U/L (135-225); Phosphorous 2.5 mg/dL (2.5-4.5); Triglycerides 122 mg/dL (<150); Uric Acid 6.2 mg/dL (2.5-8.0)
[2021-06-05] MEDS ORDERED: APIXABAN 5 MG TABLET PO SCH (09:00)
[2021-06-05 09:03] LABS: Anisocytosis OCC (None Seen); Band Neutrophils % 2 % (0-10); Lymphocytes % 2 % (15-49); Monocytes % (Manual) 4 % (1-12); Platelet Estimate MARKEDLY DECREASED (Normal); RBC Fragments FEW (None Seen); RBC Morphology ABNORMAL (Normal); Segmented Neutrophils % 92 % (38-78); Toxic Granulation 1+ (None Seen)
[2021-06-05] MEDS: NICOTINE 14 MG PATCH TOPICAL SCH (09:24)
--- NOTE | 2021-06-05 10:37 | Internal Med Progress Note ---
SUBJECTIVE Subjective Patient information: Note initiated : 06/05/21 at 10:22 am Service Date, if different from initiated Date: [] Patient: Antoine Haney 76 y/o M admitted on 06/02/21 for sob. Chief Complaint: [] Interval history: Mr. Haney is a 76 year old male with a extensive medical history consisting of hypertension, hyperlipidemia, coronary artery disease status post remote stents, heart failure with reduced ejection fraction with LVEF 25 to 30%, ESRD on hemodialysis, chronic bilateral hydronephrosis, history of stroke, history of right total hip arthroplasty, wheelchair-bound status who lives in an assisted living facility and recently has experienced a general decline in health who presented to the emergency department on 06/02/2021 for shortness of breath. In the emergency department, the patient was found to be hypoxic and started on BiPAP. Work-up included routine blood work that showed a leukocytosis, left shift, lactic acid of 3.5 concerning for sepsis. In addition, the patient had elevated LFTs showing AST markedly greater than ALT, AST 1285 versus ALT 268, and normal bilirubin and mildly elevated alkaline phosphatase. Creatinine kinase was mildly elevated at 435. EKG showed a left bundle branch block which is chronic, troponin T was elevated at 0.1 (normal less than 0.03). NT proBNP was greater than 70,000. In the ED, the patient received an IV fluid bolus with normal saline followed by Lasix 80 mg IV once. Repeat lactic acid improved to 2.0. D-dimer was elevated at 3.17. A chest x-ray showed stable cardiomegaly, nonspecific alveolar opacity in both lungs that could be due to congestive heart failure with pulmonary edema or pneumonia. Right upper quadrant abdominal ultrasound showed a normal liver and gallbladder, chronic bilateral hydronephrosis. Jessica testing was positive for influenza A, negative for influenza B and SARS-CoV-2. Hospital medicine was consulted for admission. Patient was seen in the ED, he was on BiPAP and unable to provide a history due to lethargy. Review of the patient's recent past medical records at [facility] indicate that he was seen in the ED after a fall in May 2021. The patient had a pelvis CT done which showed malunion of an old right hip fracture transfixed by 3 screws, there was marked erosion of the superior femoral head and neck with the 2 most superior screws projecting through the cortex into the joint space. A large effusion was noted with chronic erosion of the bony acetabulum suspicious for septic arthritis complicated by osteomyelitis. Radiology performed a arthrocentesis under fluoroscopy draining 10 cc of sanguinous fluid. Gram stain of the synovial fluid showed rare gram- positive cocci, the culture did not grow any organisms. Case management was consulted to help with acquiring prior CODE STATUS and identifying a substitute decision-maker. The patient's ex-, Katie Haney was identified as his power of criminal attorney, she was contacted and said that his code status should be full code. 06/03 The patient is more alert today, following commands. 2 out of 2 sets of blood cultures reported growing gram-negative bacilli. It appears that 1 out of 2 blood culture results are also growing gram-positive cocci, unclear if this is a skin contaminant or represents a gram-positive bacteremia as well. CTA of the chest did not show any evidence of PE, there was pneumonia superimposed on emphysema. CT abdomen pelvis showed severe hydronephrosis bilaterally and by basilar pneumonia as well as fecal impaction. Discussed MRI of right hip with radiology, unlikely to provide useful information given the probable artifact from hardware. Discussed the patient with Dr. Wade and orthopedic surgery, he agreed to consult on the patient for the right hip concerns. Overnight the patient's troponin trend has been stable. WBC decreased from 17.9 to 11.7, platelets decreased from 100 to 81, elevated AST and ALT improving. 06/04-patient seen in room. Intermittently confused. However off BiPAP and now on 2 L oxygen. On Tamiflu during dialysis. Continue Rocephin/vancomycin. Additional blood cultures positive for gram-positive cocci. Surface cultures pending. Echocardiogram ordered. Case discussed with Dr. Wade orthopedic was reviewed total cell count from May 06 hip aspirate with less than 10,000 WBCs. At this time orthopedic felt it is unlikely septic arthritis and recommends continuing to follow and and evaluate pain while weightbearing. 06/05-surveillance cultures positive for MSSA, ESBL E. coli, started on meropenem. DC vancomycin/Rocephin. Echocardiogram no evidence of valvular vegetations however high likelihood infective endocarditis in the setting of persistent bacteremia. Consider right hip joint aspiration under fluoroscopy once surveillance cultures negative. White count unchanged at 12.5, platelets down to 71, heparin discontinued and transition to DVT prophylaxis dose Eliquis, ongoing hemodialysis, continuing Tamiflu for influenza. Remains tachycardic but hypoxia nearly resolved on intermittently 1.5 L oxygen. Addendum Additional blood cultures positive for GPC. Case discussed with nephrology. Started on Naficillin along with 2mg/kg single dose gentamicin. Transfer coordinations underway for cardiac/orthopedics intervention at tertiary center. Patient remains a full code per spouse. Also discussed the critical nature of illness with patient. He wishes to be further evaluated and if possible treatment at a tertiary center. Case discussed with [facility], no beds available for the next 24 to 48 hours Await callback from [facility]. Constitutional Vitals: Vital Signs Temp Pulse Resp BP Pulse Ox 97.0 F 116 H 20 136/91 92 06/05/21 08:01 06/05/21 08:22 06/05/21 08:22 06/05/21 08:01 06/05/21 08:22 Period Temp Pulse Resp BP Sys/Millan Pulse Ox Last 24 Hr 96.7 F-98.5 F 93-118 12-26 110-142/53-91 89-99 Intake and Output 06/04/21 06/05/21 06/05/21 21:59 05:59 13:59 Intake Total 50 880 Output Total 75 Balance 50 805 Weight 64.818 kg patient clinically improved. Minimally confused Respond to commands No telemetry events except for tachycardia On 1.5 years oxygen Nondistended abdomen Left upper extremity fistula site nontender Intake & Output: Intake & Output 06/04/21 06/05/21 06/05/21 21:59 05:59 13:59 Intake Total 50 880 Output Total 75 Balance 50 805 Weight 64.818 kg Intake: IV 50 Merrem 0.5 gm In Sodium 50 Chloride 0.9% 50 ml @ 100 mls/ hr IV Q24H [facility] Rx#:[id number] Oral 880 Output: Urine Catheter Amount 75 Other: Urine Color Tea Colored OBJ DATA Labs CBC & Chem 7: 06/05/21 05:18 06/05/21 05:18 Labs: Abnormal Lab Results 06/05/21 06/05/21 06/04/21 05:18 05:18 10:48 WBC 12.5 H RBC 3.12 L Hgb 10.1 L Hct 30.0 L RDW 17.2 H Plt Count 71 L MPV 13.1 H Seg Neutrophils % 92 H Band Neutrophils % Lymphocytes % 2 L Toxic Granulation 1+ A Platelet Estimate Markedly decreased A RBC Morphology Abnormal A Polychromasia Anisocytosis Occ A RBC Fragments Few A ESR 38 H Sodium 128 L Chloride 91 L Anion Gap BUN 37 H Creatinine 4.3 H Direct Bilirubin 0.5 H GGT 85 H AST 206 H ALT 131 H Alkaline Phosphatase 125 H Lactate Dehydrogenase 329 H Total Creatine Kinase Troponin T C-Reactive Protein Total Protein Albumin 2.9 L Albumin/Globulin Ratio 0.8 L Procalcitonin 06/04/21 06/04/21 06/04/21 10:48 05:28 05:28 WBC 12.4 H RBC 3.15 L Hgb 10.0 L Hct 30.2 L RDW 16.8 H Plt Count 90 L MPV 12.7 H Seg Neutrophils % 94 H Band Neutrophils % Lymphocytes % 3 L Toxic Granulation Occ A Platelet Estimate Decreased A RBC Morphology Abnormal A Polychromasia Occ A Anisocytosis 1+ A RBC Fragments Few A ESR Sodium Chloride 94 L Anion Gap 17.0 H BUN Creatinine 3.1 H Direct Bilirubin 0.7 H GGT AST 292 H ALT 156 H Alkaline Phosphatase Lactate Dehydrogenase 354 H Total Creatine Kinase Troponin T C-Reactive Protein 14.10 H Total Protein Albumin 2.8 L Albumin/Globulin Ratio 0.8 L Procalcitonin 06/03/21 06/03/21 06/03/21 10:30 04:36 04:36 WBC 11.7 H RBC 3.27 L Hgb 10.4 L Hct 31.6 L RDW 16.9 H Plt Count 90 L 81 L MPV 12.1 H Seg Neutrophils % Band Neutrophils % 34 H Lymphocytes % 2 L Toxic Granulation Platelet Estimate Decreased A RBC Morphology Abnormal A Polychromasia Anisocytosis 1+ A RBC Fragments Rare A ESR Sodium Chloride 94 L Anion Gap BUN 34 H Creatinine 4.1 H Direct Bilirubin 0.8 H GGT AST 405 H ALT 150 H Alkaline Phosphatase Lactate Dehydrogenase 328 H Total Creatine Kinase Troponin T C-Reactive Protein Total Protein 5.8 L Albumin 2.3 L Albumin/Globulin Ratio 0.7 L Procalcitonin 06/02/21 06/02/21 06/02/21 22:02 16:28 16:28 WBC RBC Hgb Hct RDW Plt Count MPV Seg Neutrophils % Band Neutrophils % Lymphocytes % Toxic Granulation Platelet Estimate RBC Morphology Polychromasia Anisocytosis RBC Fragments ESR Sodium Chloride 91 L Anion Gap 20.0 H BUN 42 H Creatinine 5.0 H* Direct Bilirubin 0.7 H GGT AST 745 H ALT 210 H Alkaline Phosphatase 118 H Lactate Dehydrogenase 488 H Total Creatine Kinase Troponin T 0.10 H* 0.11 H* C-Reactive Protein Total Protein Albumin 3.1 L Albumin/Globulin Ratio 0.8 L Procalcitonin 06/02/21 06/02/21 06/02/21 13:18 13:18 13:18 WBC RBC Hgb Hct RDW Plt Count MPV Seg Neutrophils % Band Neutrophils % Lymphocytes % Toxic Granulation Platelet Estimate RBC Morphology Polychromasia Anisocytosis RBC Fragments ESR Sodium Chloride Anion Gap BUN Creatinine Direct Bilirubin GGT AST ALT Alkaline Phosphatase Lactate Dehydrogenase Total Creatine Kinase 435 H Troponin T 0.10 H* C-Reactive Protein 23.40 H Total Protein Albumin Albumin/Globulin Ratio Procalcitonin 06/02/21 13:17 WBC RBC Hgb Hct RDW Plt Count MPV Seg Neutrophils % Band Neutrophils % Lymphocytes % Toxic Granulation Platelet Estimate RBC Morphology Polychromasia Anisocytosis RBC Fragments ESR Sodium Chloride Anion Gap BUN Creatinine Direct Bilirubin GGT AST ALT Alkaline Phosphatase Lactate Dehydrogenase Total Creatine Kinase Troponin T C-Reactive Protein Total Protein Albumin Albumin/Globulin Ratio Procalcitonin 7.91 H Meds: Medications Hydrocodone Bitart/Acetaminophen (Hydrocodone/Apap 7.5/325mg Tablet) 1 tab PO Q8HP PRN PRN Reason: Pain Last Admin: 06/05/21 04:31 Dose: 1 tab Documented by: Albuterol Sulfate (Albuterol Sulfate 2.5 Mg/3 Ml Nebulizer) 2.5 mg NEB Q2HP PRN PRN Reason: Shortness Of Breath Albuterol/Ipratropium (Ipratropium/Albuterol 3 Ml Ampul.Neb) 3 ml NEB Q6HP PRN PRN Reason: Shortness Of Breath Apixaban (Apixaban 5 Mg Tablet) 2.5 mg PO BID [facility] Aspirin (Aspirin 81 Mg Tab.Chew) 81 mg PO DAILY [facility] Last Admin: 06/04/21 08:35 Dose: 81 mg Documented by: Atorvastatin Calcium (Atorvastatin 40 Mg Tablet) 40 mg PO DAILY [facility] Last Admin: 06/04/21 08:35 Dose: 40 mg Documented by: Clonazepam (Clonazepam 0.5 Mg Tablet) 0.5 mg PO DAILYP PRN PRN Reason: Anxiety Last Admin: 06/05/21 09:24 Dose: 0.5 mg Documented by: Docusate Sodium (Docusate Sodium 100 Mg Capsule) 100 mg PO BID [facility] Last Admin: 06/04/21 21:16 Dose: Not Given Documented by: Sodium Chloride (Sodium Chloride 0.9%) 250 mls @ 20 mls/hr IV .[id number] [facility] Last Admin: 06/05/21 01:48 Dose: Not Given Documented by: Vasopressin 20 unit/ Dextrose 100 mls @ 9 mls/hr IV Q12HP PRN; Protocol PRN Reason: Dialysis-related hyoptension Meropenem 0.5 gm/ Sodium (Chloride) 50 mls @ 100 mls/hr IV Q24H [facility] Last Infusion: 06/04/21 17:39 Dose: Infused Documented by: Lactulose (Lactulose 20 Gm/30 Ml Oral.[place]) 10 gm PO DAILYP PRN PRN Reason: Constipation Methylprednisolone Sodium Succinate (Methylprednisolone Sod Succ 40 Mg/Ml Vial) 40 mg IV Q12 [facility] Last Admin: 06/04/21 21:17 Dose: 40 mg Documented by: Nicotine (Nicotine 14 Mg Patch) 14 mg TOPICAL DAILY@1000 [facility] Last Admin: 06/05/21 09:24 Dose: 14 mg Documented by: Ondansetron HCl (Ondansetron 4 Mg/2 Ml Vial) 4 mg IV Q4HP PRN; Protocol PRN Reason: Nausea And Vomiting Oseltamivir Phosphate (Oseltamivir Phosphate 30 Mg Capsule) 30 mg PO TuThSa@2100 [facility] Stop: 06/07/21 21:01 Last Admin: 06/03/21 20:52 Dose: 30 mg Documented by: Senna (Sennosides 1 Tablet) 2 tab PO HSP PRN PRN Reason: Constipation Sodium Chloride (0.9 % Sodium Chloride 10 Ml Syringe) 10 ml IV Q8 [facility] Last Admin: 06/05/21 06:15 Dose: 10 ml Documented by: A/P Narrative A/P Narrative: Assessment: 76 year old male with a extensive medical history consisting of hypertension, hyperlipidemia, coronary artery disease status post remote stents, heart failure with reduced ejection fraction with LVEF 25 to 30%, ESRD on hemodialysis, chronic bilateral hydronephrosis, history of stroke, history of right total hip arthroplasty, wheelchair-bound status who lives in an assisted living facility and recently has experienced a general decline in health who presented to the emergency department on 06/02/2021 for shortness of breath. Patient was found to have acute hypoxic respiratory failure, appeared to be septic and tested positive for influenza A and there is concern the patient may have a community-acquired pneumonia or other underlying bacterial infection as he was septic on presentation to the ED. patient was started on broad-spectrum antibiotics, blood cultures grew 2 out of 2 gram-negative bacilli and 1 out of 2 gram-positive cocci. Patient's respiratory failure improved significantly after admission, the cause of gram-negative bacteremia is not clear but suspected to be due to a pyelonephritis. CT abdomen pelvis with contrast did not reveal any source of gram-negative bacteremia, positive for bibasilar pneumonia. A CTA of the patient's chest did also showed pneumonia, emphysematous changes, did not show a PE. There is also concern the patient may have a chronic right hip prosthetic joint infection. * MSSA bacteremia-very high probability infective endocarditis, TTE no evidence of valvular vegetation, 2 out of 3 surveillance cultures positive, started on nafcillin/single dose gentamicin 2mg/kg/continued meropenem * Acute respiratory failure with hypoxia secondary to influenza pneumonia/pulmonary edema. Responding to Tamiflu/dialysis and fluid removal. Off BiPAP and now on RA. * Influenza a pneumonia continue oseltamivir for additional 72 hours * ESBL E. coli/Citrobacter bacteremia likely secondary to pyelonephritis -now on meropenem * Elevated troponin secondary to type II FL from sepsis * Severe sepsis secondary to combination of above clinically improved. White count around 12.5 * Thrombocytopenia secondary to severe sepsis/possible Heparin effect. Switch to DVT prophylaxis dose apixaban * History of CAD status post stent/heart failure with reduced EF, continue medical management on aspirin/statin, beta-ap on hold in light of sepsis * Right hip pain, GPC on gram stain in May 06(however cultures negative) Reviewed with orthopedics Dr. Wade. Orthopedics felt its unlikely septic arthritis considering cell count less than 10,000. Orthopedics recommended following with repeat arthrocentesis by IR. * ESRD on HD managed per nephrology * HTN meds on hold * Severe deconditioning/weakness and wheelchair-bound status, initiate nutrition support/PT OT once clinically improved Plan * Meropenem/single dose gentamicin/naficiline/surveillance cultures * Oseltamavir for 48 hours * Coordinate transfer to tertiary center * DVT prophylaxis dose apixaban * Continued HD per nephrology * Consider right knee arthrocentesis under fluoroscopy * Katie Haney [phone] is the patient's ex- and POA. Time Spent With Patient Time: Total time spent is greater than 50% in coordination of care (as documented) at patient's floor/unit and/or counseling patient: Total time spent with greater than 50% in coordination of care (as documented) at patient's floor/unit and/or counseling patient:: Greater than 70 minutes QUALITY Stroke Symptom Onset Unknown: No
[2021-06-05] MEDS ORDERED: clonazePAM 0.5 MG TABLET PO PRN (12:50)
[2021-06-05] MEDS ORDERED: ALBUTEROL SULFATE 200 PUFF INHALER INH PRN (12:50)
[2021-06-05] MEDS ORDERED: NITROGLYCERIN 0.4 MG TAB.SUBL SL PRN (12:55)
[2021-06-05] MEDS ORDERED: ONDANSETRON 4 MG ODT TABLET SL PRN (12:56)
[2021-06-05] MEDS ORDERED: POLYETHYLENE GLYCOL 3350 17 GM PACKET PO PRN (12:58)
[2021-06-05] MEDS: HEPARIN 5,000 UNIT/ML VIAL SQ SCH (13:00)
[2021-06-05] MEDS: ATORVASTATIN 40 MG TABLET PO SCH (13:54)
[2021-06-05] MEDS: ASPIRIN 81 MG TAB.CHEW PO SCH (13:55)
[2021-06-05] MEDS: methylPREDNISolone SOD SUCC 40 MG/ML VIAL IV SCH (13:55)
[2021-06-05] MEDS: DOCUSATE SODIUM 100 MG CAPSULE PO SCH (13:55)
[2021-06-05] MEDS: MEROPENEM 0.5 GM in 0.9 % SODIUM CHLORIDE 50 ML IV SCH (13:56)
[2021-06-05] MEDS: DICLOFENAC SODIUM 3% TOPICAL SCH ×2 (13:58→16:56)
[2021-06-05] MEDS ORDERED: SODIUM CHLORIDE 0.9% IV ONE (15:00)
[2021-06-05] MEDS ORDERED: GENTAMICIN SULFATE IV ONE (15:00)
[2021-06-05] MEDS ORDERED: NAFCILLIN IV SCH ×2 (16:00→21:00)
[2021-06-05] MEDS ORDERED: SODIUM CHLORIDE 0.9% IV SCH ×2 (16:00→21:00)
--- NOTE | 2021-06-05 16:22 | Transfer Summary ---
Discharge Provider Provider Patient information: Note initiated : 06/05/21 at 4:18 pm Service Date, if different from initiated Date: [] Patient: Antoine Haney 76 y/o M admitted on 06/02/21 for sob. Chief Complaint: [] Date of admission: 06/02/21 18:42 Discharge date: 06/05/21 Primary care physician: Obdulia Rees Consults: 06/02/21 Consult to Physician [CONS] Stat Comment: Consulting Provider: Chas Doherty Reason For Exam: Physician to Consult 06/02/21 18:57 Consult to Physician [CONS] Stat Comment: Consulting Provider: Laney García Reason For Exam: Physician to Consult Discharge Meds Discharge Medications Home Medications aspirin 81 mg tablet,delayed release (Adult Low Dose Aspirin) 81 mg PO QDAY 03/06/19 [History Confirmed 06/03/21 Last Taken 10/28/20 08:00] nitroglycerin 1 tab SUBLINGUAL PRN PRN 03/06/19 [History Confirmed 06/03/21 Last Taken Unknown] albuterol sulfate 90 mcg/actuation aerosol inhaler 2 puff INHALATION Q2HP PRN g 06/26/20 [History Confirmed 06/03/21 Last Taken Unknown] ondansetron 4 mg disintegrating tablet 4 mg PO Q24HP PRN tab 06/26/20 [History Confirmed 06/03/21 Last Taken Unknown] sennosides 8.6 mg-docusate sodium 50 mg tablet (Senna Plus) 2 tab-cap PO QDAY tab 06/26/20 [History Confirmed 06/03/21 Last Taken Unknown] tamsulosin 0.4 mg capsule (Flomax) 0.8 mg PO QHS #60 cap 07/04/20 [Rx Confirmed 06/03/21 Last Taken Unknown] atorvastatin 40 mg tablet 40 mg PO QDAY 09/11/20 [History Confirmed 06/03/21 Last Taken 10/28/20 08:00] losartan 100 mg tablet 100 mg PO .COMPLEX #30 tab 02/04/21 [Rx Confirmed 06/03/21 Last Taken Unknown] calcium acetate(phosphat bind) 667 mg capsule See Rx Instructions .ROUTE .COMPLEX #300 cap 02/10/21 [Rx Confirmed 06/03/21 Last Taken Unknown] amitriptyline 25 mg tablet 25 mg PO QHS #30 tab 03/20/21 [Rx Confirmed 06/03/21 Last Taken Unknown] escitalopram oxalate 10 mg tablet 10 mg PO QHS 03/27/21 [History Confirmed 06/03/21 Last Taken Unknown] trazodone 50 mg tablet 50 mg PO QHS 03/27/21 [History Confirmed 06/03/21 Last Taken Unknown] diclofenac sodium 3 % topical gel 1 applic TOPICAL QID #100 g 05/29/21 [Rx Confirmed 06/03/21 Last Taken Unknown] clonazepam 0.5 mg tablet 0.5 mg PO QDAY PRN #30 tab 06/02/21 [Rx Confirmed 06/03/21 Last Taken Unknown] hydrocodone-acetaminophen 7.5 - 352 mg PO Q8HP PRN 06/03/21 [History Confirmed 06/03/21 Last Taken Unknown] metoprolol succinate 25 mg tablet,extended release 24 hr 25 mg PO QHS 06/03/21 [History Confirmed 06/03/21 Last Taken Unknown] omeprazole 20 mg capsule,delayed release 20 mg PO QHS 06/03/21 [History Confirmed 06/03/21 Last Taken Unknown] polyethylene glycol 3350 17 gram/dose oral powder (Miralax) 17 g PO Q24HP PRN 06/03/21 [History Confirmed 06/03/21 Last Taken Unknown] COURSE Hospital Course Hospital course: Transfer diagnosis * MSSA bacteremia-very high probability infective endocarditis, echocardiogram no evidence of valvular vegetation, 2 out of 3 surveillance cultures positive, initially managed on vancomycin, switched to nafcillin/single dose gentamicin/continued meropenem * Acute respiratory failure with hypoxia secondary to influenza pneumonia/pulmonary edema. Responding to Tamiflu/dialysis and fluid removal. Off BiPAP and now on 1 L oxygen. * Influenza A pneumonia continue oseltamivir for additional 48 hours * ESBL E. coli/Citrobacter bacteremia likely secondary to pyelonephritis -now on meropenem after initial treatment on Rocephin for 72 hours * Elevated troponin secondary to type II ID from sepsis * Severe sepsis secondary to combination of above clinically improved. White count around 12.5 * Thrombocytopenia secondary to severe sepsis/possible Heparin effect. Switch to DVT prophylaxis dose apixaban * History of CAD status post stent/heart failure with reduced EF , continue medical management on aspirin/statin, beta-ap on hold in light of sepsis * Right hip pain, GPC on gram stain in May 06(however cultures negative) Reviewed with orthopedics. Orthopedics felt its unlikely septic arthritis considering cell count less than 10,000. Orthopedics recommended following with repeat arthrocentesis by IR. * ESRD on HD managed per nephrology * HTN meds on hold * Severe deconditioning/weakness and wheelchair-bound status Brief hospital course Mr. Haney is a 76 year old male with a extensive medical history consisting of hypertension, hyperlipidemia, coronary artery disease status post remote stents, heart failure with reduced ejection fraction with LVEF 25 to 30%, ESRD on hemodialysis, chronic bilateral hydronephrosis, history of stroke, history of right total hip arthroplasty, wheelchair-bound status who lives in an assisted living facility and recently has experienced a general decline in health who presented to the emergency department on 06/02/2021 for shortness of breath. In the emergency department, the patient was found to be hypoxic and started on BiPAP. Work-up included routine blood work that showed a leukocytosis, left shift, lactic acid of 3.5 concerning for sepsis. In addition, the patient had elevated LFTs showing AST markedly greater than ALT, AST 1285 versus ALT 268, and normal bilirubin and mildly elevated alkaline phosphatase. Creatinine kinase was mildly elevated at 435. EKG showed a left bundle branch block which is chronic, troponin T was elevated at 0.1 (normal less than 0.03). NT proBNP was greater than 70,000. In the ED, the patient received an IV fluid bolus with normal saline followed by Lasix 80 mg IV once. Repeat lactic acid improved to 2.0. D-dimer was elevated at 3.17. A chest x-ray showed stable cardiomegaly, nonspecific alveolar opacity in both lungs that could be due to congestive heart failure with pulmonary edema or pneumonia. Right upper quadrant abdominal ultrasound showed a normal liver and gallbladder, chronic bilateral hydronephrosis. Jessica testing was positive for influenza A, negative for influenza B and SARS-CoV-2. Hospital medicine was consulted for admission. Patient was seen in the ED, he was on BiPAP and unable to provide a history due to lethargy. Review of the patient's recent past medical records at [facility] indicate that he was seen in the ED after a fall in May 2021. The patient had a pelvis CT done which showed malunion of an old right hip fracture transfixed by 3 screws, there was marked erosion of the superior femoral head and neck with the 2 most superior screws projecting through the cortex into the joint space. A large effusion was noted with chronic erosion of the bony acetabulum suspicious for septic arthritis complicated by osteomyelitis. Radiology performed a arthrocentesis under fluoroscopy draining 10 cc of sanguinous fluid. Gram stain of the synovial fluid showed rare gram- positive cocci, the culture did not grow any organisms. Case management was consulted to help with acquiring prior CODE STATUS and identifying a substitute decision-maker. The patient's ex-, Katie Haney was identified as his power of deputy commonwealth's attorney, she was contacted and said that his code status should be full code. 06/03 The patient is more alert today, following commands. 2 out of 2 sets of blood cultures reported growing gram-negative bacilli. It appears that 1 out of 2 blood culture results are also growing gram-positive cocci, unclear if this is a skin contaminant or represents a gram-positive bacteremia as well. CTA of the chest did not show any evidence of PE, there was pneumonia superimposed on emphysema. CT abdomen pelvis showed severe hydronephrosis bilaterally and by basilar pneumonia as well as fecal impaction. Discussed MRI of right hip with radiology, unlikely to provide useful information given the probable artifact from hardware. Discussed the patient with Dr. Wade and orthopedic surgery, he agreed to consult on the patient for the right hip concerns. Overnight the patient's troponin trend has been stable. WBC decreased from 17.9 to 11.7, platelets decreased from 100 to 81, elevated AST and ALT improving. 06/04-patient seen in room. Intermittently confused. However off BiPAP and now on 2 L oxygen. On Tamiflu during dialysis. Continue Rocephin/vancomycin. Additional blood cultures positive for gram-positive cocci. Surface cultures pending. Echocardiogram ordered. Case discussed with Dr. Wade orthopedic was reviewed total cell count from May 06 hip aspirate with less than 10,000 WBCs. At this time orthopedic felt it is unlikely septic arthritis and recommends continuing to follow and and evaluate pain while weightbearing. 06/05-surveillance cultures positive for MSSA, ESBL E. coli, started on meropenem. DC vancomycin/Rocephin. Echocardiogram no evidence of valvular vegetations however high likelihood infective endocarditis in the setting of persistent bacteremia. Consider right hip joint aspiration under fluoroscopy once surveillance cultures negative. White count unchanged at 12.5, platelets down to 71, heparin discontinued and transition to DVT prophylaxis dose Eliquis, ongoing hemodialysis, continuing Tamiflu for influenza. Remains tachycardic but hypoxia nearly resolved on intermittently 1.5 L oxygen. Addendum Additional blood cultures positive for GPC. Case discussed with nephrology. Started on Naficillin along with 2mg/kg single dose gentamicin. Transfer coordinations underway for cardiac/orthopedics intervention at tertiary center. Patient remains a full code per spouse. Also discussed the critical nature of illness with patient. He wishes to be further evaluated and if possible treatment at a tertiary center. Case discussed with [place] [facility] [place], no beds available for the next 24 to 48 hours Await callback from [facility]. Patient accepted at [facility] Dr. Bueno hospitalist. Highly appreciate her help in further managing this extremely complex patient requiring multispecialty backup Discharge diagnosis: Bacteremia Time Spent with Patient Time attestation: Total time spent providing and/or coordinating discharge services: Time spent: Greater than 30 minutes EXAM Constitutional Vitals: Temp Pulse Resp BP Pulse Ox 96.6 F L 106 H 15 138/73 92 06/05/21 13:40 06/05/21 15:04 06/05/21 15:04 06/05/21 15:01 06/05/21 15:04 Discharge Data Data Completed and Pending Labs on day of discharge: Labs from last 24 hours 06/05/21 06/05/21 05:18 05:18 WBC 12.5 H RBC 3.12 L Hgb 10.1 L Hct 30.0 L MCV 96.2 MCH 32.4 MCHC 33.7 RDW 17.2 H Plt Count 71 L MPV 13.1 H Seg Neutrophils % 92 H Band Neutrophils % 2 Lymphocytes % 2 L Monocytes % (Manual) 4 Toxic Granulation 1+ A Platelet Estimate Markedly decreased A RBC Morphology Abnormal A Anisocytosis Occ A RBC Fragments Few A Sodium 128 L Potassium 4.0 Chloride 91 L Carbon Dioxide 22 Anion Gap 15.0 BUN 37 H Creatinine 4.3 H GFR Calculation 13 Glucose 92 Uric Acid 6.2 Calcium 9.4 Phosphorus 2.5 Magnesium 2.2 Total Bilirubin 0.7 Direct Bilirubin 0.5 H GGT 85 H AST 206 H ALT 131 H Alkaline Phosphatase 125 H Lactate Dehydrogenase 329 H Total Protein 6.5 Albumin 2.9 L Globulin 3.6 Albumin/Globulin Ratio 0.8 L Triglycerides 122 Preliminary micro results at discharge 06/04/21 12:56 Blood Culture - Preliminary Blood Gram positive cocci 06/04/21 11:55 Blood Culture - Preliminary Blood 06/03/21 09:25 Blood Culture - Preliminary Blood Staphylococcus aureus 06/03/21 09:15 Blood Culture - Preliminary Blood Staphylococcus aureus Discharge Plan Patient/Caregiver Discharge Instructions Activity: other Diet: Renal Prescriptions: No Action tamsulosin [Flomax] 0.4 mg capsule 0.8 mg PO QHS Qty: 60 11RF Rx Instructions: Replaces doxazosin losartan 100 mg tablet 100 mg PO .COMPLEX Qty: 30 12RF Rx Instructions: 100 mg PO nightly on TTSS and 1/2 tab (50 mg) on MWF night; calcium acetate(phosphat bind) 667 mg capsule See Rx Instructions .ROUTE .COMPLEX Qty: 300 11RF Dose Instruction: TAKE 3 CAPSULES BY MOUTH 3 TIMES DAILY FOR SECONDARY HYPERPARATHATHYROIDISM; ADJUST NEEDED BASED ON MONTHLY PHOSPHATE LEVEL Rx Instructions: TAKE 3 CAPSULES BY MOUTH 3 TIMES DAILY FOR SECONDARY HYPERPARATHATHYROIDISM; ADJUST NEEDED BASED ON MONTHLY PHOSPHATE LEVEL Take with food amitriptyline 25 mg tablet 25 mg PO QHS Qty: 30 11RF Rx Instructions: Corrected dose trazodone 50 mg tablet 50 mg PO QHS 0RF Rx Instructions: Prescribed by Obdulia Rees NP escitalopram oxalate 10 mg tablet 10 mg PO QHS 0RF Rx Instructions: Ordered by Obdulia Rees NP diclofenac sodium 3 % gel 1 applic topical QID Qty: 100 12RF Rx Instructions: New dose and dosage frequency Stop celebrex while using this dose of diclofenac gel clonazepam 0.5 mg tablet 0.5 mg PO QDAY PRN (Reason: anxiety) Qty: 30 0RF Rx Instructions: On dialysis days, give before HD albuterol sulfate 90 mcg/actuation HFA aerosol inhaler 2 puff inhalation Q2HP PRN (Reason: Shortness Of Breath) 0RF ondansetron 4 mg tablet,disintegrating 4 mg PO Q24HP PRN (Reason: Nausea) 0RF sennosides-docusate sodium [Senna Plus] 8.6-50 mg tablet 2 tab-cap PO QDAY 0RF aspirin [Adult Low Dose Aspirin] 81 mg tablet,delayed release (DR/EC) 81 mg PO QDAY 0RF nitroglycerin 1 tab SUBLINGUAL PRN PRN (Reason: Chest Pain) 0RF Rx Instructions: Give 1 tab every 5 mins as needed for chest painx3 atorvastatin 40 mg tablet 40 mg PO QDAY 0RF omeprazole 20 mg capsule,delayed release(DR/EC) 20 mg PO QHS 0RF metoprolol succinate 25 mg tablet extended release 24 hr 25 mg PO QHS 0RF Rx Instructions: New dose hydrocodone-acetaminophen 7.5 - 352 mg PO Q8HP PRN (Reason: Pain) 0RF polyethylene glycol 3350 [Miralax] 17 gram/dose powder 17 g PO Q24HP PRN (Reason: Constipation) 0RF Follow Up Plan Follow up with: Obdulia Rees ARNP [Primary Care Provider] - Patient Disposition: [facility] Rehab Potential: Serious I certify that the patient requires SNF services: No Overall status at discharge: patient is not back to baseline Discharge Orders: Discharge Order (Routine); Ordered 06/05/21 Ordered By: [place]
--- NOTE | 2021-06-05 17:19 | Nephrology Progress Note ---
SUBJECTIVE Subjective Patient information: Note initiated : 06/05/21 at 5:12 pm Service Date, if different from initiated Date: [] Patient: Antoine Haney 76 y/o M admitted on 06/02/21 for sob. Chief Complaint: [SOB and right hip pain] Principal diagnosis: MSSA Bacteremia, E coli bacteremia, ESRD Interval history: Today on rounds the patient was seen and evaluated during dialysis. Compared to when I last saw him a week ago he looks terrible. Cannot focus, too weak to speak (which sometimes happens during excessive ul trafiltration), currently bedbound I am told by nursing he has at least 3 positive blood cultures for MSSA, and his initial set of blood cultures were positive for E. coli Currently he was only on meropenem I discussed switching to nafcillin and gentamicin as he needs to be treated as if he has endocarditis until proven otherwise His right hip may well be infected with staph He had bilateral hydronephrosis but his urine was culture negative so I do not understand how that could be the origin of E. coli In any event he looks toxic Problem list this. He will need to have his right hip explored and he has already been turned down for surgery here at [facility] as his pilot boat operator recommended higher level of care given his EF of around 25%. Need that he ES, although that would not change therapy at this second as he needs to be treated for MSSA endocarditis given his constant bacteremia. He would need cardiac anesthesia and a high level of postoperative ICU care for greater than that can be provided at [facility] or any other facility outside of [facility] I have therefore recommended additional consideration for transferring this patient before he decompensates completely Of also recommended daily blood cultures until we are at least cleared his bacteremia Finally since we have only inpatient dialysis during the week we will repeat him for a short run tomorrow as we cannot do them again until Wednesday (because of cutbacks there is no weekend dialysis in the hospital). Pertinent ROS: See above Additional PMFSH (Level 3 Only): N/A Constitutional Vitals: Vital Signs Temp Pulse Resp BP Pulse Ox 36.3 C 112 H 22 145/81 97 06/05/21 16:01 06/05/21 17:07 06/05/21 17:07 06/05/21 16:46 06/05/21 17:07 Period Temp Pulse Resp BP Sys/Millan Pulse Ox Last 24 Hr 35.9 C-36.6 C 86-118 14-28 120-149/64-100 89-100 Intake and Output 06/05/21 06/05/21 06/05/21 05:59 13:59 21:59 Intake Total 880 750 Output Total 75 3000 50 Balance 805 -3000 700 Weight 64.818 kg Patient Weight 06/06/21 05:59 Weight 64.818 kg Intake & Output: Intake & Output 06/05/21 06/05/21 06/05/21 05:59 13:59 21:59 Intake Total 880 750 Output Total 75 3000 50 Balance 805 -3000 700 Weight 64.818 kg Intake: IV 100 Merrem 0.5 gm In Sodium 50 Chloride 0.9% 50 ml @ 100 mls/ hr IV Q24H ANA ROSA Rx#:[id number] Nafcillin 1 gm In Sodium 50 Chloride 0.9% 50 ml @ 100 mls/ hr IV Q4H ANA ROSA Rx#:[id number] Oral 880 650 Output: Urine Catheter Amount 75 Void Amount 50 Hemodialysis UF 3000 Other: Meal Breakfast Lunch Percent of Meal Consumed 25% 4 bites Feeding Ability Total Assistance Total Assistance Urine Appearance Hematuria Uretheral ([place]) Sediment Hematuria Urine Color Tea Colored Dark Mitzi Dark Mitzi Uretheral ([place]) Dark Mitzi General appearance: disheveled, moderate distress and thin Exam: Frail Head Head exam: Present normal inspection and normocephalic Eye Eye exam: Present EOMI; Absent scleral icterus ENT ENT exam: Present mucous membranes dry Neck Neck exam: Absent meningismus Respiratory Respiratory exam: Present accessory muscle use and respiratory distress Cardiovascular Cardiovascular exam: Present +S1, +S2 and tachycardia; Absent +S3 GI/Abdominal GI/Abdominal exam: Present diminished bowel sounds and distended Neurological Exam Neurological exam: Present altered and CN II-XII intact; Absent abnormal gait Psychiatric Additional comments: somulent Skin Skin exam: Present dry; Absent rash A/P Assessment and plan (1) MSSA (methicillin susceptible Staphylococcus aureus) septicemia: Assessment and plan: This is the main problem he has continuous MSSA bacteremia which is by definition and intravascular infection and should be treated like staph endocarditis. He has a ES at some point but that will not change therapy immediately He should be placed on nafcillin and gentamicin Follow daily gentamicin levels and redose when level is below 2 This was discussed with the hospital medicine service Patient comorbidities are exceed the ability of a critical access hospital to provide care for him and he should be transferred for higher level of care including ES cardiovascular surgery, orthopedic surgery, infectious disease specialist and anesthesia experiencing cardiac patients with low EF Status: Acute (2) E coli bacteremia: Plan: I favor Gentamicin as part of his staph endocarditis coverage which should ad equately cover his E. coli as well as the low level what ever grew out his urine I think with Klebsiella Seems his cultures have been sterilized from the gram-negative but not MSSA Status: Acute (3) ESRD on hemodialysis: Plan: We will repeat dialysis tomorrow as we have no ability to dialyze on a week, and switch to MWF is still here next week Status: Chronic (4) Acute on chronic systolic (congestive) heart failure: Assessment and plan: Needs a ES to look for vegetations Plan: Treat like staph endocarditis Transfer for higher level of care If his hips could not be explored, will need cardiac anesthesia as his EF is in the 20% range Status: Chronic (5) Anemia due to chronic kidney disease: Status: Chronic Comment: As needed BERNABE with HD Qualifiers: Chronic kidney disease stage: on chronic dialysis Qualified Code(s): N18.6 - End stage renal disease; D63.1 - Anemia in chronic kidney disease; Z99.2 - Dependence on renal dialysis (6) Secondary hyperparathyroidism of renal origin: Plan: Monitor PTH, Ca and PO4 Status: Chronic Comment: Ca Acetate (7) Pain in right hip: Assessment and plan: Could well be seeded in setting of continuous bacteremia but this has to be an intravascular source, not an infected hip continuously seeding the blood stream Plan: Treat like staph endocarditis Status: Chronic Time Spent With Patient Time: Total time spent is greater than 50% in coordination of care (as documented) at patient's floor/unit and/or counseling patient:
[2021-06-05] MEDS ORDERED: CALCIUM ACETATE 667 MG CAPSULE PO SCH (17:30)
[2021-06-05] MEDS ORDERED: AMITRIPTYLINE 25 MG TABLET PO SCH (21:00)
[2021-06-05] MEDS ORDERED: TAMSULOSIN 0.4 MG CAPSULE PO SCH (21:00)
[2021-06-05] MEDS ORDERED: METOPROLOL SUCCINATE 25 MG TAB.XL.24H PO SCH (21:00)
[2021-06-05] MEDS ORDERED: traZODone HCL 50 MG TABLET PO SCH (21:00)
[2021-06-05] MEDS ORDERED: ESCITALOPRAM 10 MG TABLET PO SCH (21:00)
[2021-06-06] MEDS ORDERED: SENNOSIDES/DOCUSATE SODIUM 1 TAB TABLET PO SCH (09:00)
[2021-06-06] MEDS ORDERED: ATORVASTATIN 40 MG TABLET PO SCH (09:00)
== END 2021-06-05 19:22 | disposition short-term general hospital (02) | DRG 871 ==
LOC: ED 06:47 → ICU 18:42
PROVIDERS: ADMIT Internal Medicine; ATTEND Internal Medicine